=== PATIENT | male | born 1975 | race Caucasian/White ===

== ENCOUNTER → 2018-05-12 13:51 | Outpatient (CLI) | payer OTHER, SELFPAY ==
[2018-05-12 14:54] LABS: Hemoglobin A1C% w Est Avg Glu 9.1 % (4.0-6.0)
== END ==
PROVIDERS: PCP Family Medicine; Visit Provider Family Medicine
DX: E11.9 Type 2 diabetes mellitus without complications (principal)
CPT/HCPCS: 36415; 83036

== ENCOUNTER → 2018-05-19 08:29 | Outpatient (CLI) | payer OTHER, SELFPAY ==
--- NOTE | 2018-05-19 08:33 | DI.ECHO.S_ITS ---
[facility] +---------+ : : [address] : [place] [address] : : : : [id number] : : : : Phone: [phone]+ Echocardiogram Report + + :Name: TEJAS CARTER Study Date: 05/19/2018 Height: 71 in : :[facility] Weight: 270 lb : : Gender: Male BSA: 2.4 m2 : :: 1975 Age: 42 yrs BP: 132/84 mmHg: :Reason For Study: Cardiomyopathy : :Ordering Physician: Eryn : :Jesús Performed By: Gina Yañez : :Referring: NATALIA HENAO A : + + Interpretation Summary The left ventricle is mild-moderately dilated. There has been no significant change since the previous study. Left ventricular systolic function is moderately reduced. The ejection fraction is estimated to be 30-35%. Compared to the prior exam, left ventricular function is borderline improved. There is moderate global hypokinesis of the left ventricle. LV diastolic function is somewhere along grade I-II. The right ventricle grossly appears normal in size with probable normal systolic function. There is a pacemaker lead in the right ventricle. Right ventricular systolic function has increased since previous exam. The right ventricular systolic pressure is estimated at 38 mmHg assuming a right atrial pressure of 8 mm Hg. Borderline left atrial enlargement. The right atrium is mildly dilated. There is mild mitral regurgitation. Compared to the prior echo study, there has been an increase in the severity of mitral regurgitation. There is no other significant valvular heart disease. The aortic root is normal size. Procedure: A two-dimensional transthoracic echocardiogram with color flow and Doppler was performed. The study quality was technically difficult. Comparison is made with the echocardiogram of 07-02-17. A contrast injection of Definity was performed to improve assessment of LV function. A total of 1.5 cc of contrast was given. The patient was in normal sinus rhythm during the exam. Left Ventricle: The left ventricle is mild-moderately dilated. There has been no significant change since the previous study. There is normal left ventricular wall thickness. Left ventricular systolic function is moderately reduced. The ejection fraction is estimated to be 30-35%. Compared to the prior exam, left ventricular function is borderline improved. There is moderate global hypokinesis of the left ventricle. LV diastolic function is somewhere along grade I-II. Right Ventricle: The right ventricle grossly appears normal in size with probable normal systolic function. There is a pacemaker lead in the right ventricle. Right ventricular systolic function has increased since previous exam. Atria: Borderline left atrial enlargement. The right atrium is mildly dilated. The interatrial septum is intact with no evidence for an atrial septal defect. Mitral Valve: The mitral valve is grossly normal. There is mild mitral regurgitation. Compared to the prior echo study, there has been an increase in the severity of mitral regurgitation. Aortic Valve: The aortic valve opens well. The aortic valve is trileaflet. No aortic regurgitation is present. Tricuspid Valve: The tricuspid valve is normal in structure and function. There is trace tricuspid regurgitation. The right ventricular systolic pressure is estimated at 38 mmHg assuming a right atrial pressure of 8 mm Hg. Pulmonic Valve: The pulmonic valve is not well visualized. There is no pulmonic valvular regurgitation. There is no other significant valvular heart disease. Great Vessels: The aortic root is normal size. The dimensions of the ascending aorta are normal. The IVC is dilated (diameter is greater than 2.1 cm) yet it collapses greater than 50% with a sniff. This suggests a right atrial pressure of 8 mm Hg. Pericardium/ Pleura There is no pericardial effusion. There is no pleural effusion. MMode/2D Measurements & Calculations LVIDd: 6.3 cm Ao root diam: 3.6 cm LVIDs: 5.4 cm Aortic Jxn: 3.1 cm FS: 15.4 % asc Aorta Diam: 3.2 cm IVSd: 0.98 cm Ao Arch Diam (Prox Trans): 3.0 cm LVPWd: 0.76 cm LV evans. diameter/BSA (cm/m^2): 2.6 LV sys. diameter/BSA (cm/m^2): 2.2 LA dimension: 4.2 cm RA long axis: 5.1 cm LA A2 area: 21.9 cm2 RA area: 22.6 cm2 LA A4 area: 22.1 cm2 RA vol: 84.6 ml LA length (vol): 5.3 cm RA : 35.3 ml/m2 LA vol: 77.0 ml IVC diam: 2.2 cm LA vol index: 32.2 ml/m2 RVDd major: 6.6 cm RVD1 (basal): 4.0 cm RVD2 (mid): 3.7 cm Doppler Measurements & Calculations Ao V2 max: 139.7 cm/sec MV E max dejon: 103.1 cm/sec Ao V2 mean: 101.9 cm/sec MV A max dejon: 101.6 cm/sec Ao max P.8 mmHg MV E/A: 1.0 Ao mean P.6 mmHg Med Peak E' Dejon: 5.5 cm/sec Ao V2 VTI: 28.8 cm E/E' med: 18.8 Lat Peak E' Dejon: 7.5 cm/sec E/E' lat: 13.8 E/e' average: 16.3 MV dec time: 0.21 sec MV P1/2t: 61.6 msec MR ERO: 0.08 cm2 TR max dejon: 275.4 cm/sec MV P1/2t max dejon: 103.3 cm/sec TR max P.3 mmHg MVA(P1/2t): 3.6 cm2 PA V2 max: 101.1 cm/sec PA V2 mean: 64.4 cm/sec PA mean P.0 mmHg PA Accel Time: 0.12 sec MR flow rate: 38.8 cm3/sec MR PISA radius: 0.40 cm Reading Physician:PM
== END ==
PROVIDERS: Family Provider Internal Medicine; PCP Family Medicine; Visit Provider Family Medicine
DX: I42.9 Cardiomyopathy, unspecified (principal); I34.0 Nonrheumatic mitral (valve) insufficiency; Z95.0 Presence of cardiac pacemaker
CPT/HCPCS: 93306; Q9957

== ENCOUNTER → 2018-12-31 11:08 | Outpatient (CLI) | payer OTHER, SELFPAY | PROVIDERS: Family Provider Internal Medicine; Visit Provider Physician Assistant | DX: R68.89 Other general symptoms and signs (principal) | CPT/HCPCS: 87400 ==

== ENCOUNTER → 2018-12-31 12:34 | Outpatient (CLI) | payer OTHER, SELFPAY ==
--- NOTE | 2018-12-31 12:35 | DI.RAD.S_ITS ---
PROCEDURE: XR CHEST 2V INDICATIONS: COUGH TECHNIQUE: 2 views of the chest were acquired. COMPARISON: [facility], , CHEST 1 VIEW, 07/20/2017, 22:18. FINDINGS: Surgical changes and devices: Left chest wall cardiac device position is unchanged. Lungs and pleura: Lungs are clear. No pleural effusions or pneumothorax. Mediastinum: Mediastinal contours are normal. Heart size is enlarged. Bones and chest wall: No suspicious bony abnormalities. Soft tissues appear unremarkable. IMPRESSION: Cardiomegaly. No acute pulmonary pathology. Dictated by: Brian Benoit M.D. on 12/31/2018 at 13:05 Approved by: Brian Benoit M.D. on 12/31/2018 at 13:06
== END ==
PROVIDERS: Family Provider Internal Medicine; Visit Provider Physician Assistant
DX: R05 Cough (principal); I51.7 Cardiomegaly; R68.89 Other general symptoms and signs
CPT/HCPCS: 71046; 87400

== ENCOUNTER → 2019-03-06 10:23 | Outpatient (CLI) | payer OTHER, SELFPAY ==
[2019-03-06 12:11] LABS: Add Manual Diff / Slide Review NO; Basophils Absolute Auto 0 /uL (0-100); Basophils Percent Auto 0.9 % (0-2); Eosinophils Absolute Auto 0 /uL (0-450); Eosinophils Percent Auto 0.8 % (2-4); Hematocrit 45.4 % (41-53); Hemoglobin 15.7 g/dL (13.5-17.5); Lymphocytes Absolute Auto 1600 /uL (1100-4500); Lymphocytes Percent Auto 29.2 % (25-40); Mean Corpuscular HGB Conc 34.5 % (30-36); Mean Corpuscular Hemoglobin 29.2 PG (26-34); Mean Corpuscular Volume 84.5 fL (80-100); Monocytes Absolute Auto 400 /uL (0-900); Monocytes Percent Auto 8.1 % (3-14); Neutrophils Absolute Auto 3300 /uL (1500-7000); Platelet Count 216 X10^3/uL (150-400); Red Blood Cell Count 5.37 X10^6/uL (4.5-5.9); Red Cell Distribution Width 14.3 % (11.6-14.8); White Blood Cell Count 5.5 X10^3/uL (4.5-11.0)
[2019-03-06 12:43] LABS: Digoxin < 0.4 ng/mL (0.8-2.0)
[2019-03-06 12:45] LABS: Alanine Aminotransferase 19 IU/L (21-72); Albumin 4.7 g/dL (3.5-5.0); Albumin Globulin Ratio 1.6 (1.0-2.8); Alkaline Phosphatase 102 U/L (38-126); Aspartate Aminotransferase 13 IU/L (17-59); Bilirubin Total 0.8 mg/dL (0.2-1.3); Blood Urea Nitrogen 14 mg/dL (9-20); Calcium 9.9 mg/dL (8.4-10.2); Carbon Dioxide 28 mmol/L (22-32); Chloride 97 mmol/L (98-107); Estimated Glomerular Filt Rate > 60.0 mL/min (>60); Glucose 232 mg/dL (70-100); HEMOLYSIS < 15 (0-50); Potassium 4.1 mmol/L (3.4-5.1); Sodium 138 mmol/L (137-145); Total Protein 7.7 g/dL (6.3-8.2)
== END ==
LOC: LAB 10:25
PROVIDERS: PCP Family Medicine; Visit Provider Internal Medicine
DX: I42.8 Other cardiomyopathies (principal)
CPT/HCPCS: 36415; 80053; 80162; 85025

== ENCOUNTER 2019-09-18 08:11 | Emergency (ER) | payer OTHER, SELFPAY ==
--- NOTE | 2019-09-18 08:19 | ED.SOB ---
HPI - SOB/Dyspnea General Chief Complaint: Shortness of Breath/Dyspnea Stated Complaint: Dizzy, SOB Time Seen by Provider: 09/18/19 08:19 Source: patient and EMS Limitations: no limitations History of Present Illness HPI Narrative: Patient is a 43-year-old male with history of bipolar, anxiety congestive heart failure diabetes hyperlipidemia presenting with 2 days worth double vision in increasing shortness of breath. His he says he recently just started taking his medication as he is supposed to he got blister packs but the double vision started 2 days ago he denies dizziness or passing out. No numbness tingling or weakness. He is having some shortness of breath which he says got worse this morning. He can't tell if it is is anxiety or itsother issues. He denies any chest pain. He denies any orthopnea no swelling in his legs. He can't tell if he is getting more short of breath with exertion or not. He really says he has had this double vision for at least the last 2-3 days he just deals with it he is able to sleepy does not feel like he is spinning nauseous. MD Complaint: shortness of breath Related Data Home Medications Medication Instructions Recorded Confirmed aspirin 81 mg PO QDAY #30 tab 08/20/16 08/19/19 Previous Rx's Medication Instructions Recorded allopurinol 100 mg tablet 100 mg PO Q DAY #90 tab 09/05/19 amantadine HCl 100 mg capsule 100 mg PO BID #180 cap 09/05/19 atorvastatin 40 mg tablet 40 mg PO DAILY #90 tab 09/05/19 buspirone 30 mg tablet 30 mg PO BID #180 tab 09/05/19 digoxin 125 mcg (0.125 mg) tablet 125 mcg PO DAILY #90 tab 09/05/19 glipizide 5 mg tablet 5 mg PO BID #180 tab 09/05/19 losartan 50 mg tablet 50 mg PO BID #180 tab 09/05/19 metformin 1,000 mg tablet 1,000 mg PO BIDCC #180 tab 09/05/19 potassium chloride 10 mEq 10 meq PO DAILY #90 tab 09/05/19 tablet,extended release torsemide 20 mg tablet 20 mg PO Q DAY #90 tab 09/05/19 divalproex 500 mg tablet,delayed 500 mg PO TID #270 tab 09/07/19 release metoprolol succinate 100 mg See Rx Instructions PO DAILY #270 09/07/19 tablet,extended release 24 hr tab Allergies Allergy/AdvReac Type Severity Reaction Status Date / Time paliperidone [From INVEGA] Allergy Severe LOSS OF Verified 08/19/19 09:39 SPEECH AND MOTOR CONTROL NSAIDS (Non-Steroidal AdvReac Unknown STATES Verified 08/19/19 09:39 Anti-Inflamma INTERACTS [NSAIDS (NON-STEROIDAL WITH HOME ANTI-INFLAMMA] MEDS Review of Systems Review of Systems ROS Unobtainable: All systems reviewed & are unremarkable except as noted in HPI and below Constitutional Constitutional: Denies chills, Denies fever(s), Denies lethargy and Denies weakness Eyes Eyes: Reports blurry vision, Reports diplopia, Denies irritation and Denies itchy eyes Cardiovascular Cardiovascular: Denies chest pain, Denies lightheadedness, Reports dyspnea and Denies orthopnea Respiratory Respiratory: Reports as per HPI and Reports dyspnea Gastrointestinal Gastrointestinal: Denies abdominal pain, Denies change in bowel habits, Denies diarrhea, Denies nausea and Denies vomiting Genitourinary Genitourinary: Denies hematuria, Denies flank pain, Denies urinary incontinence and Denies urinary urgency Musculoskeletal Musculoskeletal: Denies back pain, Denies muscle weakness, Denies numbness and Denies tingling Integumentary/Breasts Skin/Breast: Denies pruritus, Denies erythema, Denies rash and Denies wounds Neurologic Neurologic: Denies confusion, Denies numbness, Denies tingling and Denies weakness Psychiatric Psychiatric: Denies anxiety, Denies confusion, Denies depression, Denies homicidal ideation and Denies suicidal ideation Allergic/Immunologic Allergic/Immunologic: Denies itchy eyes Patient History Medical History Drug-induced cardiomyopathy (Chronic 2015) Obstructive sleep apnea hypopnea, severe (Chronic) Social History marital status: household members: spouse education level: college occupational status: disabled Smoking Status: Former smoker alcohol intake: never substance use type: does not use Exam Initial Vital Signs Initial Vital Signs: Vital Signs Temperature 97.4 F L 09/18/19 08:23 Pulse Rate 88 09/18/19 08:23 Respiratory Rate 18 09/18/19 08:23 Blood Pressure 117/100 H 09/18/19 08:23 Pulse Oximetry 93 09/18/19 08:23 GENERAL: Alert anxious male HEENT: Head atraumatic,EOMI, pupils reactive, face symmetric CARDIOVASCULAR: Regular rate and rhythm without murmurs, rubs or gallops. RESPIRATORY: Breath sounds equal bilaterally, no wheezes rales or rhonchi. ABDOMEN: Soft, nontender. Normoactive bowel sounds all 4 quadrants. No guarding or rebound. EXTREMITIES: Normal range of motion, no clubbing or edema. Neurovascularly intact NEUROLOGICAL: Alert and oriented x4.Normal gait and speech. Cranial nerves II through XII grossly intact. Good [id number], good [id number], strength equal bilaterally, no dysarthria or aphasia, sensation in tact to soft touch bilaterally, no visual changes, no facial droop SKIN: Warm, dry, no laceration, no petechiae, no rashes or lesions. Scores NIH Stroke Scale Level of Conciousness: Alert, keenly responsive Ask month/age: Answers both questions correctly. Open/close eyes, close hand: Performs both tasks correctly Best gaze horizontal: Normal Visual leung: No visual loss Facial palsy: Normal symetrical movement Left arm drift: No drift for full 10 sec Right arm drift: No drift for full 10 sec Left leg drift: No drift for full 10 sec Right leg drift: No drift for full 10 sec Limb ataxia: Absent Sensory on face/arms/legs: Normal, no sensory loss Best language: No aphasia, normal Dysarthria: Normal Extinction or inattention: No abnormality Total NIH Stroke scale score: 0 Course Orders Ordered: ED Orders 09/18/19 08:20 Consult to Respiratory Therapy Evaluate & Treat CT head/brain wo con Stat EKG-12 Lead Stat 09/18/19 08:21 XR chest 1V Stat 09/18/19 08:35 B Type Natriuretic Peptide Stat Complete Blood Count AUTO DIFF Stat Comprehensive Metabolic Panel Stat Digoxin Stat Troponin & CK Cardiac Panel Stat Discontinued Medications Furosemide (Lasix) 40 mg IV NOW ONE Stop: 09/18/19 08:52 Last Admin: 09/18/19 09:16 Dose: 40 mg Documented by: MARTÍNEZ Vital Signs Vital signs: Vital Signs - 8 hr 09/18/19 08:23 09/18/19 09:30 09/18/19 10:00 Temperature 97.4 F L Pulse Rate 88 75 81 Respiratory Rate 18 21 19 Blood Pressure 117/100 H Blood Pressure [Right Arm] 119/86 116/89 Pulse Oximetry 93 94 97 MDM - SOB/Dyspnea Lab Data Attestation: I reviewed the patient's lab results. Result diagrams: 09/18/19 08:35 09/18/19 08:35 Labs: Lab Results 09/18/19 09/18/19 09/18/19 Range/Units 08:35 08:35 08:35 WBC 8.2 (4.5-11.0) X10^3/uL RBC 4.67 (4.5-5.9) X10^6/uL Hgb 13.8 (13.5-17.5) g/dL Hct 39.6 L (41-53) % MCV 84.9 (80-100) fL MCH 29.6 (26-34) PG MCHC 34.9 (30-36) % RDW 15.1 H (11.6-14.8) % Plt Count 239 (150-400) X10^3/uL Neut % (Auto) 71.9 (50-75) % Lymph % (Auto) 20.0 L (25-40) % [place] % (Auto) 6.2 (3-14) % Eos % (Auto) 0.7 L (2-4) % Baso % (Auto) 1.2 (0-2) % Neut # (Auto) 5900 (4425-2795) /uL Lymph # (Auto) 1600 (2558-3703) /uL [place] # (Auto) 500 (0-900) /uL Eos # (Auto) 100 (0-450) /uL Baso # (Auto) 100 (0-100) /uL Sodium 138 (137-145) mmol/L Potassium 4.3 (3.4-5.1) mmol/L Chloride 102 (98-107) mmol/L Carbon Dioxide 22 (22-32) mmol/L BUN 26 H (9-20) mg/dL Creatinine 1.10 (0.66-1.25) mg/dL Estimated GFR > 60.0 (>60) mL/min BUN/Creatinine Ratio 23.6 H (6-22) Glucose 198 H (70-100) mg/dL Calcium 9.7 (8.4-10.2) mg/dL Total Bilirubin 0.6 (0.2-1.3) mg/dL AST 21 (17-59) IU/L ALT 19 (<50) IU/L Alkaline Phosphatase 101 (38-126) U/L Total Creatine Kinase 50 L (55-170) U/L CK-MB (CK-2) TNP CK-MB (CK-2) Rel Index TNP Troponin I < 0.012 (0.01-0.034) ng/mL B-Natriuretic Peptide 439 H (<100) Total Protein 7.2 (6.3-8.2) g/dL Albumin 4.1 (3.5-5.0) g/dL Globulin 3.1 (1.7-4.1) g/dL Albumin/Globulin Ratio 1.3 (1.0-2.8) Digoxin (0.8-2.0) ng/mL 09/18/19 Range/Units 08:35 WBC (4.5-11.0) X10^3/uL RBC (4.5-5.9) X10^6/uL Hgb (13.5-17.5) g/dL Hct (41-53) % MCV (80-100) fL MCH (26-34) PG MCHC (30-36) % RDW (11.6-14.8) % Plt Count (150-400) X10^3/uL Neut % (Auto) (50-75) % Lymph % (Auto) (25-40) % [place] % (Auto) (3-14) % Eos % (Auto) (2-4) % Baso % (Auto) (0-2) % Neut # (Auto) (6047-8839) /uL Lymph # (Auto) (1024-6883) /uL [place] # (Auto) (0-900) /uL Eos # (Auto) (0-450) /uL Baso # (Auto) (0-100) /uL Sodium (137-145) mmol/L Potassium (3.4-5.1) mmol/L Chloride (98-107) mmol/L Carbon Dioxide (22-32) mmol/L BUN (9-20) mg/dL Creatinine (0.66-1.25) mg/dL Estimated GFR (>60) mL/min BUN/Creatinine Ratio (6-22) Glucose (70-100) mg/dL Calcium (8.4-10.2) mg/dL Total Bilirubin (0.2-1.3) mg/dL AST (17-59) IU/L ALT (<50) IU/L Alkaline Phosphatase (38-126) U/L Total Creatine Kinase (55-170) U/L CK-MB (CK-2) CK-MB (CK-2) Rel Index Troponin I (0.01-0.034) ng/mL B-Natriuretic Peptide (<100) Total Protein (6.3-8.2) g/dL Albumin (3.5-5.0) g/dL Globulin (1.7-4.1) g/dL Albumin/Globulin Ratio (1.0-2.8) Digoxin < 0.4 L (0.8-2.0) ng/mL Urine Dip Bedside Urine Glucose 500 mg/dl Bedside Urine Bilirubin - Negative Bedside Urine Ketone - Negative Urine Specific [place] 1.010 Bedside Urine Occult Blood - Negative Bedside Urine pH 6 Bedside Urine Protein - Negative Bedside Urine Urobilinogen - Negative Bedside Urine Nitrite - Negative Bedside Urine Leukocytes - Negative Esterase Imaging Data Chest x-ray: Radiologist's impression: PROCEDURE: XR CHEST 1V INDICATIONS: sob TECHNIQUE: One view of the chest was acquired. COMPARISON: [facility], , XR CHEST 2V, 12/31/2018, 12:33. FINDINGS: Surgical changes and devices: Pacemaker Lungs and pleura: Acute pulmonary edema. No pleural effusions or pneumothorax. Mediastinum: Mediastinal contours appear normal. Unchanged cardiomegaly. Bones and chest wall: No suspicious bony lesions. Overlying soft tissues appear unremarkable. IMPRESSION: Acute congestive heart failure Dictated by: Vin Perez M.D. on 09/18/2019 at 8:41 CT scan - head: Radiologist's impression: PROCEDURE: CT HEAD/BRAIN WO CON INDICATIONS: blurry vision for a couple of weeks TECHNIQUE: Noncontrast 4.5 mm thick angled axial sections acquired from the foramen magnum to the vertex, with coronal and sagittal reformats. For radiation dose reduction, the following was used: automated exposure control, adjustment of mA and/or kV according to patient size. COMPARISON: None. FINDINGS: Image quality: Excellent. CSF spaces: Basal cisterns are patent. No extra-axial fluid collections. Ventricles are normal in size and shape. Brain: No midline shift. No intracranial masses or hemorrhage. Starr-white matter interface is normal. Skull and face: Calvarium and visualized facial bones are intact, without suspicious lesions. Sinuses: Visualized sinuses and mastoids are clear. IMPRESSION: Normal for age source of altered vision is not seen. Depending on clinical status followup by MR scanning may become necessary. Dictated by: Jose Antonio Riojas M.D. on 09/18/2019 at 8:54 ECG Data Attestation: I personally reviewed and interpreted this ECG as follows: Prior ECG tracings: available for review Interpretation: Normal sinus rhythm rate 80 p.r. interval 191 QRS [address] elevations depressions or T-wave inversions similar to MDM Narrative Medical decision making narrative: Patient urinated 2 or 3 times while in the emergency department after IV Lasix. He had an ambulation trial is his oxygen level % he felt okay. He would prefer not to stay in the hospital, and at this point does not need to. He is already taking to Ro some id says he has been taking it once a day for the past few days but does not feel like doing much. His at this point I recommend he increased the torsemide to twice a day for the next 3 days and return as needed. His blurry vision also began to improve while in the emergency department. Head CT negative and stroke symptoms also negative. Discharge Plan Departure Patient Disposition: Home Clinical Impression: CHF (congestive heart failure) Qualifiers: Heart failure type: unspecified Heart failure chronicity: acute on chronic Qualified Code(s): I50.9 - Heart failure, unspecified Discharge Date/Time: 09/18/19 10:32 Instructions: DI for Heart Failure Activity Restrictions/Additional Instructions: *You have been diagnosed with congestive heart failure *What to do: Increase activity as tolerated. *Continue to take medications as directed Increased to 0 some I had to twice a day once 1st thing in the morning and then 2nd dose in the afternoon for the next 3 days, then return to as needed *Follow up with your primary care provider in 2-3 days *Return to ER if you should have it increasing shortness of breath double vision, weakness, numbness, tingling or any new, worsening or concerning symptoms Prescriptions: No Action aspirin 81 MG tablet,delayed release (DR/EC) 81 mg PO QDAY Qty: 30 RF: 0 allopurinol 100 mg tablet 100 mg PO Q DAY Qty: 90 RF: 3 amantadine HCl 100 mg capsule 100 mg PO BID Qty: 180 RF: 1 atorvastatin 40 mg tablet 40 mg PO DAILY Qty: 90 RF: 3 buspirone 30 mg tablet 30 mg PO BID Qty: 180 RF: 3 digoxin 125 mcg (0.125 mg) tablet 125 mcg PO DAILY Qty: 90 RF: 1 glipizide 5 mg tablet 5 mg PO BID Qty: 180 RF: 1 losartan [Cozaar] 50 mg tablet 50 mg PO BID Qty: 180 RF: 3 metformin 1,000 mg tablet 1,000 mg PO BIDCC Qty: 180 RF: 1 potassium chloride 10 mEq tablet extended release 10 meq PO DAILY Qty: 90 RF: 1 torsemide 20 mg tablet 20 mg PO Q DAY Qty: 90 RF: 1 metoprolol succinate 100 mg tablet extended release 24 hr See Rx Instructions PO DAILY Qty: 270 RF: 1 divalproex 500 mg tablet,delayed release (DR/EC) 500 mg PO TID Qty: 270 RF: 1 Referrals: Edward Ortiz MD [Primary Care Provider] -
--- NOTE | 2019-09-18 08:21 | DI.RAD.S_ITS ---
PROCEDURE: XR CHEST 1V INDICATIONS: sob TECHNIQUE: One view of the chest was acquired. COMPARISON: [facility], CR, XR CHEST 2V, 12/31/2018, 12:33. FINDINGS: Surgical changes and devices: Pacemaker Lungs and pleura: Acute pulmonary edema. No pleural effusions or pneumothorax. Mediastinum: Mediastinal contours appear normal. Unchanged cardiomegaly. Bones and chest wall: No suspicious bony lesions. Overlying soft tissues appear unremarkable. IMPRESSION: Acute congestive heart failure Dictated by: Vin Perez M.D. on 09/18/2019 at 8:41 Approved by: Vin Perez M.D. on 09/18/2019 at 8:41
[2019-09-18 08:23] VITALS: BP 117/100; PULSE 88; RESP 18; TEMP 36.3; O2SAT 93; BMI 40.6
[2019-09-18 08:46] LABS: Add Manual Diff / Slide Review NO; Basophils Absolute Auto 100 /uL (0-100); Basophils Percent Auto 1.2 % (0-2); Eosinophils Absolute Auto 100 /uL (0-450); Eosinophils Percent Auto 0.7 % (2-4); Hematocrit 39.6 % (41-53); Hemoglobin 13.8 g/dL (13.5-17.5); Lymphocytes Absolute Auto 1600 /uL (1100-4500); Mean Corpuscular HGB Conc 34.9 % (30-36); Mean Corpuscular Hemoglobin 29.6 PG (26-34); Mean Corpuscular Volume 84.9 fL (80-100); Monocytes Absolute Auto 500 /uL (0-900); Monocytes Percent Auto 6.2 % (3-14); Neutrophils Absolute Auto 5900 /uL (1500-7000); Neutrophils Percent Auto 71.9 % (50-75); Platelet Count 239 X10^3/uL (150-400); Red Blood Cell Count 4.67 X10^6/uL (4.5-5.9); Red Cell Distribution Width 15.1 % (11.6-14.8); White Blood Cell Count 8.2 X10^3/uL (4.5-11.0)
[2019-09-18 08:55] LABS: Creatine Kinase 50 U/L (55-170)
[2019-09-18 09:08] LABS: Troponin I < 0.012 ng/mL (0.01-0.034)
[2019-09-18 09:09] LABS: B Type Natriuretic Peptide 439 (<100)
[2019-09-18] MEDS: FUROSEMIDE 40 MG/4 ML VIAL IV (09:16)
[2019-09-18 09:17] LABS: Alanine Aminotransferase 19 IU/L (<50); Albumin 4.1 g/dL (3.5-5.0); Albumin Globulin Ratio 1.3 (1.0-2.8); Alkaline Phosphatase 101 U/L (38-126); Aspartate Aminotransferase 21 IU/L (17-59); BUN Creatinine Ratio 23.6 (6-22); Bilirubin Total 0.6 mg/dL (0.2-1.3); Blood Urea Nitrogen 26 mg/dL (9-20); Calcium 9.7 mg/dL (8.4-10.2); Carbon Dioxide 22 mmol/L (22-32); Chloride 102 mmol/L (98-107); Estimated Glomerular Filt Rate > 60.0 mL/min (>60); Globulin 3.1 g/dL (1.7-4.1); Glucose 198 mg/dL (70-100); HEMOLYSIS < 15 (0-50); Potassium 4.3 mmol/L (3.4-5.1); Sodium 138 mmol/L (137-145); Total Protein 7.2 g/dL (6.3-8.2)
[2019-09-18 09:22] LABS: Digoxin < 0.4 ng/mL (0.8-2.0)
[2019-09-18 09:30] VITALS: BP 119/86; PULSE 75; RESP 21; O2SAT 94
[2019-09-18 10:00] VITALS: BP 116/89; PULSE 81; RESP 19; O2SAT 97
--- NOTE | 2019-09-18 10:10 | PC.NURSE ---
Pt SPO2 97% during ambulation test.
== END 2019-09-18 10:32 | disposition home or self-care (01) ==
PROVIDERS: Emergency Provider Emergency Medicine; PCP Student in an Organized Health Care Education/Training Program
DX: I50.9 Heart failure, unspecified (principal); E11.69 Type 2 diabetes mellitus with other specified complication
CPT/HCPCS: 36415; 70450; 71045; 80053; 80162; 81003; 82550; 83880; 84484; 85025; 93005; 96374; 99282; 99285; J1940

== ENCOUNTER → 2019-10-16 07:43 | Outpatient (CLI) | payer OTHER, SELFPAY ==
[2019-10-16 09:42] LABS: Hemoglobin A1C% w Est Avg Glu 7.4 % (4.0-6.0)
[2019-10-16 10:00] LABS: Alanine Aminotransferase 24 IU/L (<50); Albumin 4.5 g/dL (3.5-5.0); Albumin Globulin Ratio 1.7 (1.0-2.8); Alkaline Phosphatase 95 U/L (38-126); Aspartate Aminotransferase 17 IU/L (17-59); Bilirubin Total 0.3 mg/dL (0.2-1.3); Blood Urea Nitrogen 16 mg/dL (9-20); Calcium 9.2 mg/dL (8.4-10.2); Carbon Dioxide 27 mmol/L (22-32); Chloride 97 mmol/L (98-107); Estimated Glomerular Filt Rate > 60.0 mL/min (>60); Globulin 2.7 g/dL (1.7-4.1); Glucose 200 mg/dL (70-100); HEMOLYSIS < 15 (0-50); Potassium 4.3 mmol/L (3.4-5.1); Sodium 136 mmol/L (137-145); Total Protein 7.2 g/dL (6.3-8.2)
[2019-10-16 10:03] LABS: Cholesterol 183 mg/dL (140-199); HDL Cholesterol 38 mg/dL (40-60); LDL Cholesterol Calculated 103 mg/dL (<100); Triglycerides 212 mg/dL (35-150); Uric Acid 6.9 mg/dL (3.5-8.5)
[2019-10-16 10:04] LABS: Creatinine Urine Random 106.1 mg/dL; Digoxin 0.7 ng/mL (0.8-2.0)
[2019-10-16 10:17] LABS: Vitamin D 25 Hydroxy (D3) 24.5 ng/mL (30.0-100.0)
[2019-10-16 11:21] LABS: Microalbumi Creatinin Ratio Ur 196.9 ug/mg CR (<30); Microalbumin Urine Random 20.9 mg/dL (0-1.6)
== END ==
PROVIDERS: PCP Student in an Organized Health Care Education/Training Program; Visit Provider Internal Medicine
DX: I50.41 Acute combined systolic (congestive) and diastolic (congestive) heart failure (principal); E11.69 Type 2 diabetes mellitus with other specified complication; E11.9 Type 2 diabetes mellitus without complications; E78.5 Hyperlipidemia, unspecified; I10 Essential (primary) hypertension; Z79.899 Other long term (current) drug therapy; Z87.39 Personal history of other diseases of the musculoskeletal system and connective tissue; E55.9 Vitamin D deficiency, unspecified
CPT/HCPCS: 36415; 80053; 80061; 80162; 82043; 82306; 82570; 83036; 84550

== ENCOUNTER 2020-01-06 20:04 | Inpatient (IN) | payer OTHER, SELFPAY ==
[2020-01-06 20:24] VITALS: BP 111/81; PULSE 114; RESP 18; TEMP 39.1; O2SAT 97; BMI 38.2
--- NOTE | 2020-01-06 20:33 | DI.RAD.S_ITS ---
PROCEDURE: XR CHEST 2V INDICATIONS: coughing, fever TECHNIQUE: 2 views of the chest were acquired. COMPARISON: [facility], , XR CHEST 1V, 09/18/2019, 8:24. FINDINGS: Surgical changes and devices: Left chest wall cardiac device position is unchanged. Lungs and pleura: Congestive changes in bilateral hilar region are seen. Underlying perihilar infiltrates cannot be excluded. No pleural effusions or pneumothorax. Mediastinum: Mediastinal contours are normal. Heart size is enlarged. Bones and chest wall: No suspicious bony abnormalities. Soft tissues appear unremarkable. IMPRESSION: Cardiomegaly and mild congestion. Cannot rule out underlying perihilar infiltrates particularly in left upper lobe and right lower lobe. Dictated by: Brian Benoit M.D. on 01/06/2020 at 21:20 Approved by: Brian Benoit M.D. on 01/06/2020 at 21:23
--- NOTE | 2020-01-06 20:44 | ED.SOB ---
HPI - SOB/Dyspnea General Chief Complaint: Shortness of Breath/Dyspnea Stated Complaint: cough, difficulty breathing Time Seen by Provider: 01/06/20 20:32 Source: patient and family () Mode of arrival: Ambulatory Limitations: no limitations History of Present Illness HPI Narrative: This is a 44-year-old male who comes to the emergency department with cough and difficulty breathing. Patient had symptoms for the last 24 hours. He developed fevers in the last several hours. Patient states that he does feel short of breath, he has chest pain anteriorly without any radiation. Patient states that he has had a cough that is been somewhat productive with yellowish sputum. He has had some nasal congestion. He has also had a little bit of a headache. He has had nausea. He has had normal bowel movements with no diarrhea or constipation, he is not having any abdominal pain or flank pain. He has not any rashes or skin changes. He has not had any swelling in his extremities. Patient has cardiomyopathy that is believed to be hereditary and accelerated by Adderall use. His EF is in the 15-30% range. He is not a transplant candidate according to his . Patient is bipolar and is moderately controlled according to his but they are unable to change medications because of his cardiac history. He also has diabetes, takes medication for dyslipidemia and hypertension as well as digoxin. Patient does have an ICD in place. His bitumastic applier is Dr. Espinosa. His only other surgery has been a urethral dilation. No tobacco he was a former smoker, no alcohol, he does use THC daily under the guidance of his psychiatrist. Related Data Home Medications Medication Instructions Recorded Confirmed aspirin 81 mg PO QDAY #30 tab 08/20/16 08/19/19 atorvastatin 80 mg tablet 80 mg PO DAILY 10/28/19 Previous Rx's Medication Instructions Recorded allopurinol 100 mg tablet 100 mg PO Q DAY #90 tab 09/05/19 amantadine HCl 100 mg capsule 100 mg PO BID #180 cap 09/05/19 buspirone 30 mg tablet 30 mg PO BID #180 tab 09/05/19 digoxin 125 mcg (0.125 mg) tablet 125 mcg PO DAILY #90 tab 09/05/19 losartan 50 mg tablet 50 mg PO BID #180 tab 09/05/19 metformin 1,000 mg tablet 1,000 mg PO BIDCC #180 tab 09/05/19 potassium chloride 10 mEq 10 meq PO DAILY #90 tab 09/05/19 tablet,extended release torsemide 20 mg tablet 20 mg PO Q DAY #90 tab 09/05/19 divalproex 500 mg tablet,delayed 500 mg PO TID #270 tab 09/07/19 release metoprolol succinate 100 mg See Rx Instructions PO DAILY #270 09/07/19 tablet,extended release 24 hr tab glipizide 10 mg tablet 10 mg PO BID #180 tab 10/18/19 magnesium chloride 64 mg 64 mg PO DAILY #90 tab 11/24/19 (magnesium chloride) tablet,delayed release Allergies Allergy/AdvReac Type Severity Reaction Status Date / Time paliperidone [From INVEGA] Allergy Severe LOSS OF Verified 08/19/19 09:39 SPEECH AND MOTOR CONTROL NSAIDS (Non-Steroidal AdvReac Unknown STATES Verified 08/19/19 09:39 Anti-Inflamma INTERACTS [NSAIDS (NON-STEROIDAL WITH HOME ANTI-INFLAMMA] MEDS Review of Systems Review of Systems ROS Unobtainable: All systems reviewed & are unremarkable except as noted in HPI and below Patient History Medical History Drug-induced cardiomyopathy (Chronic 2016) Obstructive sleep apnea hypopnea, severe (Chronic) Social History marital status: household members: spouse education level: college occupational status: disabled Smoking Status: Former smoker alcohol intake: never substance use type: does not use Smoking Status: Former smoker alcohol intake frequency: 0-2 drinks per day Substance Use Type: does not use Exam Narrative Exam Narrative: GEN: Obese male, alert and oriented x 3, patient appears to be in moderate distress. HEENT: Atraumatic, pupils are equal round reactive to light, extraocular movements are intact. HEART: Tachycardic but Regular rate and rhythm without murmur, clicks, rubs. Pulses are equal in upper and lower extremities, no edema bilateral lower extremities. LUNGS:Lungs course bilaterally auscultation, no wheezes, rales, crackles, chest moves symmetrically, mild tachypnea. No accessory muscle use. Patient has a wet cough on exam. ABD:bowel sounds normal, soft, non-tender, no guarding, rebound, rigidity, no masses noted, no hepatosplenomegaly :No CVA tenderness MSCL: Non-tender, no muscle atrophy, muscles strength 5/5 upper and lower extremities, full range of motion. NEURO:CN 2-12 intact, sensation normal Initial Vital Signs Initial Vital Signs: Vital Signs Temperature 102.4 F H 01/06/20 20:24 Pulse Rate 114 H 01/06/20 20:24 Respiratory Rate 18 01/06/20 20:24 Blood Pressure 111/81 01/06/20 20:24 Pulse Oximetry 97 01/06/20 20:24 Scores qSOFA Altered Mental Status (GCS <15): No Respiratory rate greater than/equal to 22: No Systolic blood pressure less than or equal to 100: No qSOFA Total: 0 0-1 Not High Risk 1-3 High risk Course Orders Ordered: ED Orders 01/06/20 20:23 Respiratory Panel (Film Array) Stat 01/06/20 20:32 EKG-12 Lead Stat RT Consult Eval and Treat Now 01/06/20 20:33 Chest [XR chest 2V] Stat 01/06/20 20:50 Complete Blood Count AUTO DIFF Stat Comprehensive Metabolic Panel Stat Digoxin Stat Lactate (Lactic Acid) Stat Lipase Stat NT-proBNP (BNP-Adult 18+) Stat Partial Thromboplastin Time Stat Procalcitonin Stat Prothrombin Time INR Stat Troponin & CK Cardiac Panel Stat 01/06/20 21:25 Blood Culture Stat 01/06/20 23:30 CT chest w con Stat Discontinued Medications Acetaminophen (Tylenol) 975 mg PO NOW ONE Stop: 01/06/20 20:46 Last Admin: 01/06/20 21:42 Dose: 975 mg Documented by: NIRMAL Albuterol (Ventolin Hfa) 4 puff INH NOW ONE Stop: 01/06/20 21:29 Last Admin: 01/06/20 21:44 Dose: 4 inhalation Documented by: NIRMAL Sodium Chloride (Normal Saline 0.9%) 1,000 mls @ 500 mls/hr IV BOLUS ONE Stop: 01/06/20 22:59 Last Admin: 01/06/20 21:43 Dose: 500 mls/hr Documented by: NIRMAL Piperacillin/Tazobactam/Dextrose (Zosyn) 4.5 gm in 100 mls @ 200 mls/hr IV NOW ONE Stop: 01/06/20 22:14 Last Infusion: 01/06/20 22:55 Dose: 0 mls/hr Documented by: Admin: 01/06/20 22:25 Dose: 200 mls/hr Documented by: DENNIS Vital Signs Vital signs: Vital Signs - 8 hr 01/06/20 20:24 01/06/20 21:42 01/06/20 22:33 Temperature 102.4 F H 102.4 F H 99.8 F H Pulse Rate 114 H 98 H Respiratory Rate 18 24 Blood Pressure 111/81 Blood Pressure [Right Arm] 126/69 Pulse Oximetry 97 95 01/06/20 22:45 01/06/20 23:00 Temperature 99.8 F H Pulse Rate 84 Respiratory Rate 16 Blood Pressure Blood Pressure [Right Arm] 125/57 L Pulse Oximetry 98 MDM - SOB/Dyspnea Lab Data Attestation: I reviewed the patient's lab results. Result diagrams: 01/06/20 20:50 01/06/20 20:50 Labs: Lab Results 01/06/20 01/06/20 01/06/20 Range/Units 20:23 20:50 20:50 WBC 5.1 (4.5-11.0) X10^3/uL RBC 5.25 (4.5-5.9) X10^6/uL Hgb 15.0 (13.5-17.5) g/dL Hct 44.0 (41-53) % MCV 83.8 (80-100) fL MCH 28.6 (26-34) PG MCHC 34.1 (30-36) % RDW 15.1 H (11.6-14.8) % Plt Count 147 L (150-400) X10^3/uL Neut % (Auto) 74.3 (50-75) % Lymph % (Auto) 12.9 L (25-40) % [place] % (Auto) 10.8 (3-14) % Eos % (Auto) 0.8 L (2-4) % Baso % (Auto) 1.2 (0-2) % Neut # (Auto) 3800 (5728-5595) /uL Lymph # (Auto) 700 L (5545-5261) /uL [place] # (Auto) 500 (0-900) /uL Eos # (Auto) 0 (0-450) /uL Baso # (Auto) 100 (0-100) /uL PT 12.8 H (10.1-12.7) SECONDS INR 1.1 (0.9-1.3) APTT 30 (26.4-36.2) SECONDS Sodium (137-145) mmol/L Potassium (3.4-5.1) mmol/L Chloride (98-107) mmol/L Carbon Dioxide (22-32) mmol/L BUN (9-20) mg/dL Creatinine (0.66-1.25) mg/dL Estimated GFR (>60) mL/min BUN/Creatinine Ratio (6-22) Glucose (70-100) mg/dL Lactate (0.7-2.1) mmol/L Calcium (8.4-10.2) mg/dL Total Bilirubin (0.2-1.3) mg/dL AST (17-59) IU/L ALT (<50) IU/L Alkaline Phosphatase (38-126) U/L Total Creatine Kinase (55-170) U/L CK-MB (CK-2) CK-MB (CK-2) Rel Index Troponin I (0.01-0.034) ng/mL NT-Pro-B Natriuret Pep (<125) pg/mL Total Protein (6.3-8.2) g/dL Albumin (3.5-5.0) g/dL Globulin (1.7-4.1) g/dL Albumin/Globulin Ratio (1.0-2.8) Lipase (23-300) U/L Procalcitonin (<0.5) ng/mL Digoxin (0.8-2.0) ng/mL Chlamy pneumoniae PCR Not detected (Not Detect) Adenovirus (PCR) Not detected (Not Detect) B.parapertussis DNA PCR Not detected (Not Detect) Coronavirus OC43 (PCR) Not detected (Not Detect) Coronavirus HKU1 (PCR) Not detected (Not Detect) Coronavirus 229E (PCR) Not detected (Not Detect) Coronavirus NL63 (PCR) Not detected (Not Detect) Human Metapneumovir PCR Detected H (Not Detect) Influenza Type A (PCR) Not detected (Not Detect) Influenza Type B (PCR) Not detected (Not Detect) M. pneumoniae (PCR) Not detected (Not Detect) Parainfluenza 1 (PCR) Not detected (Not Detect) Parainfluenza 2 (PCR) Not detected (Not Detect) Parainfluenza 3 (PCR) Not detected (Not Detect) Parainfluenza 4 (PCR) Not detected (Not Detect) RSV (PCR) Not detected (Not Detect) Entero/Rhino (PCR) Not detected (Not Detect) 01/06/20 01/06/20 01/06/20 Range/Units 20:50 20:50 20:50 WBC (4.5-11.0) X10^3/uL RBC (4.5-5.9) X10^6/uL Hgb (13.5-17.5) g/dL Hct (41-53) % MCV (80-100) fL MCH (26-34) PG MCHC (30-36) % RDW (11.6-14.8) % Plt Count (150-400) X10^3/uL Neut % (Auto) (50-75) % Lymph % (Auto) (25-40) % [place] % (Auto) (3-14) % Eos % (Auto) (2-4) % Baso % (Auto) (0-2) % Neut # (Auto) (2981-4865) /uL Lymph # (Auto) (7457-7689) /uL [place] # (Auto) (0-900) /uL Eos # (Auto) (0-450) /uL Baso # (Auto) (0-100) /uL PT (10.1-12.7) SECONDS INR (0.9-1.3) APTT (26.4-36.2) SECONDS Sodium 134 L (137-145) mmol/L Potassium 3.5 (3.4-5.1) mmol/L Chloride 98 (98-107) mmol/L Carbon Dioxide 30 (22-32) mmol/L BUN 10 (9-20) mg/dL Creatinine 0.86 (0.66-1.25) mg/dL Estimated GFR > 60.0 (>60) mL/min BUN/Creatinine Ratio 11.6 (6-22) Glucose 182 H (70-100) mg/dL Lactate 1.4 (0.7-2.1) mmol/L Calcium 8.8 (8.4-10.2) mg/dL Total Bilirubin 0.8 (0.2-1.3) mg/dL AST 21 (17-59) IU/L ALT 12 (<50) IU/L Alkaline Phosphatase 127 H (38-126) U/L Total Creatine Kinase (55-170) U/L CK-MB (CK-2) CK-MB (CK-2) Rel Index Troponin I (0.01-0.034) ng/mL NT-Pro-B Natriuret Pep (<125) pg/mL Total Protein 7.6 (6.3-8.2) g/dL Albumin 4.1 (3.5-5.0) g/dL Globulin 3.5 (1.7-4.1) g/dL Albumin/Globulin Ratio 1.2 (1.0-2.8) Lipase 109 (23-300) U/L Procalcitonin < 0.05 (<0.5) ng/mL Digoxin (0.8-2.0) ng/mL Chlamy pneumoniae PCR (Not Detect) Adenovirus (PCR) (Not Detect) B.parapertussis DNA PCR (Not Detect) Coronavirus OC43 (PCR) (Not Detect) Coronavirus HKU1 (PCR) (Not Detect) Coronavirus 229E (PCR) (Not Detect) Coronavirus NL63 (PCR) (Not Detect) Human Metapneumovir PCR (Not Detect) Influenza Type A (PCR) (Not Detect) Influenza Type B (PCR) (Not Detect) M. pneumoniae (PCR) (Not Detect) Parainfluenza 1 (PCR) (Not Detect) Parainfluenza 2 (PCR) (Not Detect) Parainfluenza 3 (PCR) (Not Detect) Parainfluenza 4 (PCR) (Not Detect) RSV (PCR) (Not Detect) Entero/Rhino (PCR) (Not Detect) 01/06/20 01/06/20 Range/Units 20:50 20:50 WBC (4.5-11.0) X10^3/uL RBC (4.5-5.9) X10^6/uL Hgb (13.5-17.5) g/dL Hct (41-53) % MCV (80-100) fL MCH (26-34) PG MCHC (30-36) % RDW (11.6-14.8) % Plt Count (150-400) X10^3/uL Neut % (Auto) (50-75) % Lymph % (Auto) (25-40) % [place] % (Auto) (3-14) % Eos % (Auto) (2-4) % Baso % (Auto) (0-2) % Neut # (Auto) (2698-0589) /uL Lymph # (Auto) (3066-4733) /uL [place] # (Auto) (0-900) /uL Eos # (Auto) (0-450) /uL Baso # (Auto) (0-100) /uL PT (10.1-12.7) SECONDS INR (0.9-1.3) APTT (26.4-36.2) SECONDS Sodium (137-145) mmol/L Potassium (3.4-5.1) mmol/L Chloride (98-107) mmol/L Carbon Dioxide (22-32) mmol/L BUN (9-20) mg/dL Creatinine (0.66-1.25) mg/dL Estimated GFR (>60) mL/min BUN/Creatinine Ratio (6-22) Glucose (70-100) mg/dL Lactate (0.7-2.1) mmol/L Calcium (8.4-10.2) mg/dL Total Bilirubin (0.2-1.3) mg/dL AST (17-59) IU/L ALT (<50) IU/L Alkaline Phosphatase (38-126) U/L Total Creatine Kinase 90 (55-170) U/L CK-MB (CK-2) TNP CK-MB (CK-2) Rel Index TNP Troponin I < 0.012 (0.01-0.034) ng/mL NT-Pro-B Natriuret Pep 2180 H (<125) pg/mL Total Protein (6.3-8.2) g/dL Albumin (3.5-5.0) g/dL Globulin (1.7-4.1) g/dL Albumin/Globulin Ratio (1.0-2.8) Lipase (23-300) U/L Procalcitonin (<0.5) ng/mL Digoxin < 0.4 L (0.8-2.0) ng/mL Chlamy pneumoniae PCR (Not Detect) Adenovirus (PCR) (Not Detect) B.parapertussis DNA PCR (Not Detect) Coronavirus OC43 (PCR) (Not Detect) Coronavirus HKU1 (PCR) (Not Detect) Coronavirus 229E (PCR) (Not Detect) Coronavirus NL63 (PCR) (Not Detect) Human Metapneumovir PCR (Not Detect) Influenza Type A (PCR) (Not Detect) Influenza Type B (PCR) (Not Detect) M. pneumoniae (PCR) (Not Detect) Parainfluenza 1 (PCR) (Not Detect) Parainfluenza 2 (PCR) (Not Detect) Parainfluenza 3 (PCR) (Not Detect) Parainfluenza 4 (PCR) (Not Detect) RSV (PCR) (Not Detect) Entero/Rhino (PCR) (Not Detect) Imaging Data Chest x-ray: Radiologist's Impression: [address] [address] XRay Report Signed Patient: Himanshu Nguyễn AMR#: [id number] : 1975Acct:[id number] Age/Sex: 44 / MDate of Service: 01/06/20 Loc: ED Accession Number: [id number] Procedure: XR chest 2V Ordering Provider: Aury Merida D.O. PROCEDURE: XR CHEST 2V INDICATIONS: coughing, fever TECHNIQUE: 2 views of the chest were acquired. [facility]. FINDINGS: Surgical changes and devices: Left chest wall cardiac device position is unchanged. Lungs and pleura: Congestive changes in bilateral hilar region are seen. Underlying perihilar infiltrates cannot be excluded. No pleural effusions or pneumothorax. Mediastinum: Mediastinal contours are normal. Heart size is enlarged. Bones and chest wall: No suspicious bony abnormalities. Soft tissues appear unremarkable. IMPRESSION: Cardiomegaly and mild congestion. Cannot rule out underlying perihilar infiltrates particularly in left upper lobe and right lower lobe. Dictated by: Brian Benoit M.D. on 01/06/2020 at 21:20 Approved by: Brian Benoit M.D. on 01/06/2020 at 21:23 CT scan - abdomen/pelvis: Radiologist's Impression: Multiple nodular infiltrates are identified in the lingula left lower lobe. Small area of scarring in the right apex. No segmental airspace opacity. No pleural effusion or pneumothorax. Borderline mild cardiomegaly, no significant pericardial effusion. Multiple subcentimeter and borderline enlarged mediastinal and bilateral hilar lymph nodes. ECG Data Attestation: I personally reviewed and interpreted this ECG as follows: Prior ECG tracings: available for review Interpretation: Normal sinus rhythm rate of 98 [place] 140 QRS of 108 QTC of 449. Left axis deviation. No ST elevation or depression. Patient has prior EKG from 09/18/2019 that appears similar. MDM Narrative Medical decision making narrative: Patient comes in needing septic criteria with a temperature of 102.4? in tachycardia in the 114 range. Patient is 97% with pressure in the 110s to 120s. Patient was given 500 cc fluid bolus and his heart rate did improve, his fever improved with Tylenol. He is feeling somewhat better but still feels ill. Has a significant history for cardiomyopathy with a decreased EF an ICD in place and follows with Dr. Espinosa. Patient appears to have pneumonia on chest x-ray. He has had cough and chest pain and shortness of breath consistent with a pneumonia. Show an elevated white count, platelets are 147 and he has low lymphocytes with normal range neutrophils. Sodium is 134, renal function electrolytes are normal range. Patient's troponin was included as he does have a significant cardiac history and is negative been a proBNP of 2180. Patient has prior BNPs but no prior proBNP for comparison. Patient's digoxin level was checked and is low. Was include is positive for human metapneumovirus, patient is quite high risk and castillo virus 19 testing was included but will be pending for the next several days. Patient is improving but based on his history and meeting septic criteria was felt would be prudent to observe him overnight. Discussed with Dr. Soto from cardiology he does not feel patient requires transfer at this time but would recommend an echo in the morning to check his EF and cardiovascular status. Plan for gentle fluids in order not to over hydrate this patient. Discussed with our hospitalist, PRASANNA Villanueva and she accepts but would like to get CT to evaluate, this shows some lingular and left lower lobe nodular infiltrate and adenopathy. We did have patient take his home medications he did initially receive 1 dose of IV antibiotics and 4 puffs on the MDI which was helpful for his shortness of breath. Discharge Plan Departure Patient Disposition: Admitted as Observation Clinical Impression: Sepsis, Pneumonia, Human metapneumovirus pneumonia Admit Date/Time: 01/07/20 00:33 Admit Provider: Giselle Villanueva
[2020-01-06 21:11] LABS: Add Manual Diff / Slide Review NO; Basophils Absolute Auto 100 /uL (0-100); Basophils Percent Auto 1.2 % (0-2); Eosinophils Absolute Auto 0 /uL (0-450); Eosinophils Percent Auto 0.8 % (2-4); Lymphocytes Absolute Auto 700 /uL (1100-4500); Lymphocytes Percent Auto 12.9 % (25-40); Mean Corpuscular HGB Conc 34.1 % (30-36); Mean Corpuscular Hemoglobin 28.6 PG (26-34); Mean Corpuscular Volume 83.8 fL (80-100); Monocytes Absolute Auto 500 /uL (0-900); Monocytes Percent Auto 10.8 % (3-14); Neutrophils Absolute Auto 3800 /uL (1500-7000); Neutrophils Percent Auto 74.3 % (50-75); Platelet Count 147 X10^3/uL (150-400); Red Blood Cell Count 5.25 X10^6/uL (4.5-5.9); Red Cell Distribution Width 15.1 % (11.6-14.8); White Blood Cell Count 5.1 X10^3/uL (4.5-11.0)
[2020-01-06 21:18] LABS: INR 1.1 (0.9-1.3); Prothrombin Time 12.8 SECONDS (10.1-12.7)
[2020-01-06 21:20] LABS: PTT Partial Thromboplastin Tim 30 SECONDS (26.4-36.2)
[2020-01-06 21:28] LABS: Creatine Kinase 90 U/L (55-170); Lactate (Lactic Acid) 1.4 mmol/L (0.7-2.1)
[2020-01-06 21:29] LABS: Alanine Aminotransferase 12 IU/L (<50); Albumin 4.1 g/dL (3.5-5.0); Albumin Globulin Ratio 1.2 (1.0-2.8); Alkaline Phosphatase 127 U/L (38-126); Aspartate Aminotransferase 21 IU/L (17-59); BUN Creatinine Ratio 11.6 (6-22); Bilirubin Total 0.8 mg/dL (0.2-1.3); Blood Urea Nitrogen 10 mg/dL (9-20); Calcium 8.8 mg/dL (8.4-10.2); Carbon Dioxide 30 mmol/L (22-32); Chloride 98 mmol/L (98-107); Estimated Glomerular Filt Rate > 60.0 mL/min (>60); Globulin 3.5 g/dL (1.7-4.1); Glucose 182 mg/dL (70-100); HEMOLYSIS < 15 (0-50); Lipase 109 U/L (23-300); Potassium 3.5 mmol/L (3.4-5.1); Sodium 134 mmol/L (137-145); Total Protein 7.6 g/dL (6.3-8.2)
[2020-01-06 21:40] LABS: NT-proBNP (BNP-Adult 18+) 2180 pg/mL (<125); Troponin I < 0.012 ng/mL (0.01-0.034)
[2020-01-06 21:42] VITALS: TEMP 39.1
[2020-01-06] MEDS: ACETAMINOPHEN 325 MG TABLET 975 MG PO (21:42)
[2020-01-06] MEDS: SODIUM CHLORIDE 0.9% 1,000 ML 500 ML IV (21:43)
[2020-01-06] MEDS: ALBUTEROL HFA 60 PUFF/8 GM INH INH (21:44)
[2020-01-06 21:51] LABS: Adenovirus Not Detected (Not Detect); Bordetella pertussis Not Detected (Not Detect); Chlamydophila pneumoniae Not Detected (Not Detect); Coronavirus 229E Not Detected (Not Detect); Coronavirus HKU1 Not Detected (Not Detect); Coronavirus NL 63 Not Detected (Not Detect); Coronavirus OC43 Not Detected (Not Detect); Human Metapneumovirus Detected (Not Detect); Human Rhinovirus/Enterovirus Not Detected (Not Detect); Influenza A Not Detected (Not Detect); Influenza B Not Detected (Not Detect); Mycoplasma pneumoniae Not Detected (Not Detect); Parainfluenza Virus 1 Not Detected (Not Detect); Parainfluenza Virus 2 Not Detected (Not Detect); Parainfluenza Virus 3 Not Detected (Not Detect); Parainfluenza Virus 4 Not Detected (Not Detect); Respiratory Syncytial Virus Not Detected (Not Detect)
[2020-01-06 22:14] LABS: Procalcitonin < 0.05 ng/mL (<0.5)
[2020-01-06] MEDS: PIPERACILLIN-TAZO 4.5 GM/100 ML FROZ.PIGGY IV (22:25)
[2020-01-06 22:28] LABS: Digoxin < 0.4 ng/mL (0.8-2.0)
[2020-01-06 22:33] VITALS: BP 126/69; PULSE 98; RESP 24; TEMP 37.7; O2SAT 95
[2020-01-06 22:45] VITALS: TEMP 37.7
[2020-01-06 23:00] VITALS: BP 125/57; PULSE 84; RESP 16; O2SAT 98
--- NOTE | 2020-01-06 23:30 | DI.CT.S_ITS ---
PROCEDURE: CT CHEST W CON INDICATIONS: pneumonia, covid TECHNIQUE: After the administration of intravenous contrast, 5 mm thick sections acquired from the pulmonary apices to the posterior costophrenic angles. 1 mm axial lung, 5 mm thick coronal and sagittal reformats and 7 mm axial MIP were acquired. For radiation dose reduction, the following was used: automated exposure control, adjustment of mA and/or kV according to patient size. COMPARISON: [facility], CR, XR CHEST 2V, 01/06/2020, 21:02. FINDINGS: Image quality: Excellent. Lungs and pleura: Nodular infiltrates bilaterally, most pronounced in the left lower lobe, lingula and right middle lobe, but also involve right upper and lower lobes, consistent with pneumonia. No pleural effusions or pneumothorax. Central and peripheral airways are patent and normal in caliber. Mediastinum: Heart size is normal. No pericardial effusion. Mildly enlarged mediastinal or hilar lymph nodes measuring up to 1 cm. Thoracic aorta and central pulmonary arteries are normal in size. Esophagus is normal in caliber. No hiatal hernia. Bones and chest wall: No suspicious bony lesions. No vertebral body compression fractures. No axillary or supraclavicular adenopathy by size criteria. Thyroid gland is normal. There is a cardiac pacemaker. Abdomen: Visualized upper abdominal solid organs appear normal. Upper abdominal bowel loops are normal in caliber. IMPRESSION: 1. Bilateral nodular infiltrates consistent with pneumonia. 2. Reactive lymphadenopathy in mediastinum or girish. No significant discrepancy with the concreter radiology preliminary report. Dictated by: Brit Wise M.D. on 01/07/2020 at 7:52 Approved by: Brit Wise M.D. on 01/07/2020 at 7:58
[2020-01-07] VITALS (8 sets, daily range): BP systolic 116–146; BP diastolic 59–84; PULSE 88–100; RESP 16–20; TEMP 36.6–38.2; O2SAT 95–98; BMI 38.2
--- NOTE | 2020-01-07 02:01 | PM.HP.1 ---
History of Present Illness History of Present Illness Date Patient Seen: 01/07/20 Time Patient Seen: 01:15 Chief complaint: cough, difficulty breathing Narrative: Himanshu Weiss is a 44-year-old male with a history of congestive heart failure and an ejection fraction he states in the 15% range, ADHD, bipolar anxiety, and diabetes type 2 presents with the 2 day history of fevers, shortness of breath and a cough. His symptoms started yesterday with shortness of breath however he states that he short of breath all the time. He then had fevers on admission to the ED of 102.4. He states that he has had scant sputum. It denies chest pain, nausea and vomiting, dysuria, diarrhea, constipation, course lower extremity swelling. Emergency department provider discussed his case with his ship/rec/doc control due to his cardiac condition. Patient states that he does not qualify for heart transplant due to his mental health issues. He states that he has been told he has 2 years to live and has lived 3 years since being told that prognosis. He states that taking Adderall contributed to his heart disease. Patient is quite tangential in his history, so it is difficult to obtain a clear history from him. Patient History Medical History Drug-induced cardiomyopathy (Chronic 2016) Obstructive sleep apnea hypopnea, severe (Chronic) Family & Social History Social History: household members spouse Safety & Behavioral: Feels Safe in Current Yes Environment Been Physically Hurt or No Threatened By a Person Tobacco & Substance use: Smoking Status Former smoker alcohol intake never alcohol intake frequency 0-2 drinks per day Substance Use Type does not use Meds Home Medications and Allergies Home Medications Medication Instructions Recorded Confirmed Type aspirin 81 mg PO QDAY #30 tab 08/20/16 08/19/19 History allopurinol 100 mg tablet 100 mg PO Q DAY #90 tab 09/05/19 09/18/19 Rx amantadine HCl 100 mg capsule 100 mg PO BID #180 cap 09/05/19 Rx buspirone 30 mg tablet 30 mg PO BID #180 tab 09/05/19 Rx digoxin 125 mcg (0.125 mg) tablet 125 mcg PO DAILY #90 tab 09/05/19 Rx losartan 50 mg tablet 50 mg PO BID #180 tab 09/05/19 09/18/19 Rx metformin 1,000 mg tablet 1,000 mg PO BIDCC #180 tab 09/05/19 09/18/19 Rx potassium chloride 10 mEq 10 meq PO DAILY #90 tab 09/05/19 Rx tablet,extended release torsemide 20 mg tablet 20 mg PO Q DAY #90 tab 09/05/19 Rx divalproex 500 mg tablet,delayed 500 mg PO TID #270 tab 09/07/19 Rx release metoprolol succinate 100 mg See Rx Instructions PO DAILY #270 09/07/19 Rx tablet,extended release 24 hr tab glipizide 10 mg tablet 10 mg PO BID #180 tab 10/18/19 Rx atorvastatin 80 mg tablet 80 mg PO DAILY 10/28/19 History magnesium chloride 64 mg 64 mg PO DAILY #90 tab 11/24/19 Rx (magnesium chloride) tablet,delayed release Allergies Allergy/AdvReac Type Severity Reaction Status Date / Time paliperidone [From INVEGA] Allergy Severe LOSS OF Verified 08/19/19 09:39 SPEECH AND MOTOR CONTROL NSAIDS (Non-Steroidal AdvReac Unknown STATES Verified 08/19/19 09:39 Anti-Inflamma INTERACTS [NSAIDS (NON-STEROIDAL WITH HOME ANTI-INFLAMMA] MEDS Review of Systems Review of Systems ROS: Yes All systems reviewed with the patient and are negative except as otherwise documented Exam Vital Signs (past 8 hours): - 01/06/20 20:24 01/06/20 21:42 01/06/20 22:33 Temperature 102.4 F H 102.4 F H 99.8 F H Pulse Rate 114 H 98 H Respiratory Rate 18 24 Blood Pressure 111/81 Blood Pressure [Right Arm] 126/69 Pulse Oximetry 97 95 01/06/20 22:45 01/06/20 23:00 Temperature 99.8 F H Pulse Rate 84 Respiratory Rate 16 Blood Pressure Blood Pressure [Right Arm] 125/57 L Pulse Oximetry 98 Oxygen Delivery Method Room Air Narrative Exam Narrative: Gen: Alert, oriented, obese 44 y.o. male, very anxious and labile HEENT: normocephalic, atraumatic, conjunctiva clear, sclera non-icteric, oral mucosa pink and moist Neck: supple, full ROM Resp: Lungs diminished with faint wheezes bilaterally, non-labored breathing CV: RRR, no murmur or rubs Abd: Obese, soft, non-tender, normoactive BTs Skin: no lesions or rashes, dry and intact, no swelling Neuro: Alert and oriented X 4 w/no focal deficits Extremities: moves all 4 extremities, is ambulatory, negative Dez?s sign Psyche: Anxious, tangential and labile. Objective Labs Result Diagrams: 01/06/20 20:50 01/06/20 20:50 Labs: Laboratory Results - last 24 hr 01/06/20 01/06/20 01/06/20 20:23 20:50 20:50 WBC 5.1 RBC 5.25 Hgb 15.0 Hct 44.0 MCV 83.8 MCH 28.6 MCHC 34.1 RDW 15.1 H Plt Count 147 L Neut % (Auto) 74.3 Lymph % (Auto) 12.9 L [place] % (Auto) 10.8 Eos % (Auto) 0.8 L Baso % (Auto) 1.2 Neut # (Auto) 3800 Lymph # (Auto) 700 L [place] # (Auto) 500 Eos # (Auto) 0 Baso # (Auto) 100 PT 12.8 H INR 1.1 APTT 30 Sodium Potassium Chloride Carbon Dioxide BUN Creatinine Estimated GFR BUN/Creatinine Ratio Glucose Lactate Calcium Total Bilirubin AST ALT Alkaline Phosphatase Total Creatine Kinase CK-MB (CK-2) CK-MB (CK-2) Rel Index Troponin I NT-Pro-B Natriuret Pep Total Protein Albumin Globulin Albumin/Globulin Ratio Lipase Procalcitonin Digoxin Chlamy pneumoniae PCR Not detected Adenovirus (PCR) Not detected B.parapertussis DNA PCR Not detected Coronavirus OC43 (PCR) Not detected Coronavirus HKU1 (PCR) Not detected Coronavirus 229E (PCR) Not detected Coronavirus NL63 (PCR) Not detected Human Metapneumovir PCR Detected H Influenza Type A (PCR) Not detected Influenza Type B (PCR) Not detected M. pneumoniae (PCR) Not detected Parainfluenza 1 (PCR) Not detected Parainfluenza 2 (PCR) Not detected Parainfluenza 3 (PCR) Not detected Parainfluenza 4 (PCR) Not detected RSV (PCR) Not detected Entero/Rhino (PCR) Not detected 01/06/20 01/06/20 01/06/20 20:50 20:50 20:50 WBC RBC Hgb Hct MCV MCH MCHC RDW Plt Count Neut % (Auto) Lymph % (Auto) [place] % (Auto) Eos % (Auto) Baso % (Auto) Neut # (Auto) Lymph # (Auto) [place] # (Auto) Eos # (Auto) Baso # (Auto) PT INR APTT Sodium 134 L Potassium 3.5 Chloride 98 Carbon Dioxide 30 BUN 10 Creatinine 0.86 Estimated GFR > 60.0 BUN/Creatinine Ratio 11.6 Glucose 182 H Lactate 1.4 Calcium 8.8 Total Bilirubin 0.8 AST 21 ALT 12 Alkaline Phosphatase 127 H Total Creatine Kinase CK-MB (CK-2) CK-MB (CK-2) Rel Index Troponin I NT-Pro-B Natriuret Pep Total Protein 7.6 Albumin 4.1 Globulin 3.5 Albumin/Globulin Ratio 1.2 Lipase 109 Procalcitonin < 0.05 Digoxin Chlamy pneumoniae PCR Adenovirus (PCR) B.parapertussis DNA PCR Coronavirus OC43 (PCR) Coronavirus HKU1 (PCR) Coronavirus 229E (PCR) Coronavirus NL63 (PCR) Human Metapneumovir PCR Influenza Type A (PCR) Influenza Type B (PCR) M. pneumoniae (PCR) Parainfluenza 1 (PCR) Parainfluenza 2 (PCR) Parainfluenza 3 (PCR) Parainfluenza 4 (PCR) RSV (PCR) Entero/Rhino (PCR) 01/06/20 01/06/20 20:50 20:50 WBC RBC Hgb Hct MCV MCH MCHC RDW Plt Count Neut % (Auto) Lymph % (Auto) [place] % (Auto) Eos % (Auto) Baso % (Auto) Neut # (Auto) Lymph # (Auto) [place] # (Auto) Eos # (Auto) Baso # (Auto) PT INR APTT Sodium Potassium Chloride Carbon Dioxide BUN Creatinine Estimated GFR BUN/Creatinine Ratio Glucose Lactate Calcium Total Bilirubin AST ALT Alkaline Phosphatase Total Creatine Kinase 90 CK-MB (CK-2) TNP CK-MB (CK-2) Rel Index TNP Troponin I < 0.012 NT-Pro-B Natriuret Pep 2180 H Total Protein Albumin Globulin Albumin/Globulin Ratio Lipase Procalcitonin Digoxin < 0.4 L Chlamy pneumoniae PCR Adenovirus (PCR) B.parapertussis DNA PCR Coronavirus OC43 (PCR) Coronavirus HKU1 (PCR) Coronavirus 229E (PCR) Coronavirus NL63 (PCR) Human Metapneumovir PCR Influenza Type A (PCR) Influenza Type B (PCR) M. pneumoniae (PCR) Parainfluenza 1 (PCR) Parainfluenza 2 (PCR) Parainfluenza 3 (PCR) Parainfluenza 4 (PCR) RSV (PCR) Entero/Rhino (PCR) Assessment & Plan Assessment & Plan narrative: Himanshu Nguyễn will be hospitalized as an inpatient on droplet precautions due to his cough and fever. 1. Presumed community-acquired pneumonia, acute, present on admission -he received 1 dose of Zosyn in the ED -will receive IV ceftriaxone 1 g daily and azithromycin 500 mg p.o. daily -emergency department sent out a test for COVID-19, patient will be on droplet precautions, there is a low suspicion for this due to being positive for metapneumovirus 2. Chronic left ventricular diastolic heart failure, chronic, present on admission -his proBNP is 2180 however it is not known what his baseline is. -last echocardiogram was done in 2017 indicating a EF of 30-35% -per Cardiology, they would like to have him have an echocardiogram during this admission, this has been ordered -continue home dose of metoprolol succinate 100 mg p.o. once daily and losartan 50 mg p.o. b.i.d. -his digital level is 0.4 which is low, assuming his not been taking digoxin. Will resume digoxin 125 mcg p.o. once daily -continue home dose of torsemide 20 mg p.o. daily 3. Diabetes type 2, chronic, unknown if controlled, present on admission -hemoglobin A1c will be added on to his labs. Last A1c in September 2019 was 7.4. -I have held his metformin and glipizide. -start regular dose insulin correctional scale with a.c. and HS glucose checks, carb controlled diet FEN: IV saline line, carb controlled diet, chemistries in the am Patient is admitted inpatient his stay is not likely to exceed 2 midnights. VTE Prophylaxis: Bilateral SCDs and enoxaparin 40 mg subcu daily Medications reconciled: Yes but not confirmed Disposition: Presumed eventual discharge to home Code Status: Full code 3. Hyperlipidemia, chronic, present on admission -continue home dose of atorvastatin 80 mg p.o. daily 4. Bipolar disorder, chronic not well controlled, present on admission -patient states that it is difficult to adjust any of his medications due to the interactions with his bipolar medications -patient will continue home doses of buspirone 30 mg p.o. b.i.d., divalproex 500 mg p.o. t.i.d. Scores CHADS-VASc Congestive heart failure: yes Hypertension: yes Age 75 years or older: no Diabetes mellitus: yes Stroke, TIA, or TE: no Vascular disease: no Age 65 to 74 years: no Sex category (female): Male CHADS-VASc Score: 3 Quality VTE Deep Vein Thrombosis/Pulmonary Embolism Present on Admission: No
[2020-01-07] MEDS: CEFTRIAXONE 1 GM/50 ML FROZ.PIGGY IV (02:44)
[2020-01-07 03:08] LABS: Hemoglobin A1C% w Est Avg Glu 8.3 % (4.0-6.0)
[2020-01-07 05:23] LABS: Add Manual Diff / Slide Review NO; Basophils Absolute Auto 0 /uL (0-100); Basophils Percent Auto 0.7 % (0-2); Eosinophils Absolute Auto 0 /uL (0-450); Eosinophils Percent Auto 0.6 % (2-4); Hematocrit 40.8 % (41-53); Hemoglobin 13.9 g/dL (13.5-17.5); Lymphocytes Absolute Auto 700 /uL (1100-4500); Lymphocytes Percent Auto 14.1 % (25-40); Mean Corpuscular HGB Conc 34.1 % (30-36); Mean Corpuscular Hemoglobin 28.5 PG (26-34); Mean Corpuscular Volume 83.6 fL (80-100); Monocytes Absolute Auto 700 /uL (0-900); Monocytes Percent Auto 14.2 % (3-14); Neutrophils Absolute Auto 3300 /uL (1500-7000); Neutrophils Percent Auto 70.4 % (50-75); Platelet Count 131 X10^3/uL (150-400); Red Blood Cell Count 4.88 X10^6/uL (4.5-5.9); White Blood Cell Count 4.7 X10^3/uL (4.5-11.0)
[2020-01-07 05:29] LABS: Alanine Aminotransferase 11 IU/L (<50); Albumin 3.7 g/dL (3.5-5.0); Albumin Globulin Ratio 1.1 (1.0-2.8); Alkaline Phosphatase 107 U/L (38-126); Aspartate Aminotransferase 17 IU/L (17-59); BUN Creatinine Ratio 9.8 (6-22); Bilirubin Total 0.8 mg/dL (0.2-1.3); Blood Urea Nitrogen 9 mg/dL (9-20); Calcium 8.3 mg/dL (8.4-10.2); Carbon Dioxide 30 mmol/L (22-32); Chloride 99 mmol/L (98-107); Estimated Glomerular Filt Rate > 60.0 mL/min (>60); Globulin 3.3 g/dL (1.7-4.1); Glucose 202 mg/dL (70-100); HEMOLYSIS < 15 (0-50); Potassium 3.6 mmol/L (3.4-5.1); Sodium 135 mmol/L (137-145)
[2020-01-07 05:38] LABS: NT-proBNP (BNP-Adult 18+) 2940 pg/mL (<125)
[2020-01-07] MEDS: ONDANSETRON 4 MG/2 ML INJ IV (05:57)
[2020-01-07] MEDS: ACETAMINOPHEN 325 MG TABLET 650 MG PO (05:57)
--- NOTE | 2020-01-07 07:12 | PC.NURSE ---
During admit patient was hyperverbal, discussed he is bipolar, and has mental issues. Feels he is judged. States he doesn't feel worthy of life, but when asked, he states he thinks about how it would hurt his , so he will not he states,.
[2020-01-07 07:59] LABS: Procalcitonin < 0.05 ng/mL (<0.5)
[2020-01-07] MEDS: AMANTADINE 100 MG CAPSULE PO ×2 (09:54→20:57)
[2020-01-07] MEDS: METFORMIN HCL 500 MG TABLET 1000 MG PO ×2 (09:54→16:56)
[2020-01-07] MEDS: DIGOXIN 0.125 MG TABLET PO (09:55)
[2020-01-07] MEDS: ENOXAPARIN 40 MG/0.4 ML SYRINGE SUBCUT (09:55)
[2020-01-07] MEDS: DIVALPROEX DR 250 MG TABLET 500 MG PO ×3 (09:55→20:58)
[2020-01-07] MEDS: AZITHROMYCIN 250 MG TABLET 500 MG PO (09:55)
[2020-01-07] MEDS: BUSPIRONE 15 MG TABLET 30 MG PO ×2 (09:55→20:58)
[2020-01-07] MEDS: ASPIRIN EC 81 MG TABLET PO (09:55)
[2020-01-07] MEDS: TORSEMIDE 10 MG TABLET 20 MG PO (09:56)
[2020-01-07] MEDS: METOPROLOL ER 50 MG TABLET 100 MG PO (09:56)
[2020-01-07] MEDS: LOSARTAN 50 MG TABLET PO ×2 (09:56→20:56)
[2020-01-07] MEDS: INSULIN ASPART 100 UNIT/ML INSULN PEN SUBCUT ×2 (10:14→17:02)
--- NOTE | 2020-01-07 12:26 | CM.DANOTE ---
DCP: Case reviewed, EMR reviewed. Obtained information from notes in chart to complete initial DCP assessment, for patient is in isolation. DCP assessment completed with information currently available. Patient is a 44 year old male who admitted early this morning to the care of the hospitalist team. PCP: Dr. Ortiz. Payer: confirmed: [employer]. Patient came to the hospital via family vehicle secondary to a cough and difficulty breathing. Patient is being tested for COVD-19, pending results. Patient holds current diagnosis of pneumonia. He has history of cardiomyopathy, and 15% ejection fraction. In recent note, is stated, he is not a candidate for a heart transplant due to mental issues. Patient has history of ADHD, and biploar disorder, and is on Adderall. Patient is also diabetic type 2. According to notes, patient resides in [place] with his spouse, Julianna. Due to his cardiac issues, patient does have history of some shortness of breath. He is unemployed. According to note, patient has seen psychiatrist, and is also under care of cardiology. He should be having an echo today. P: DCP to continue to follow and be available for any resources needed. Patient should be able to go home when he is medically stable. Phoebe Obrien RN/Field Technical Assistant
[2020-01-07] MEDS: ALBUTEROL HFA 60 PUFF/8 GM INH INH (13:57)
[2020-01-07] MEDS: ALBUTEROL/IPRATROPIUM MDI 2 PUFF INH ×2 (14:00→20:38)
[2020-01-07] MEDS: ATORVASTATIN 20 MG TABLET 80 MG PO (20:55)
[2020-01-07] MEDS: guaiFENesin ER 600 MG TAB 1200 MG PO (20:56)
[2020-01-07] MEDS: METOPROLOL ER 50 MG TABLET PO (20:56)
[2020-01-07] MEDS: METOCLOPRAMIDE HCL 10 MG TABLET PO (20:57)
[2020-01-08] VITALS (11 sets, daily range): BP systolic 92–156; BP diastolic 57–80; PULSE 69–90; RESP 14–20; TEMP 35.9–37.1; O2SAT 92–99
[2020-01-08] MEDS: ALBUTEROL/IPRATROPIUM MDI 2 PUFF INH ×2 (08:48→20:48)
[2020-01-08] MEDS: INSULIN ASPART 100 UNIT/ML INSULN PEN SUBCUT ×3 (08:50→17:11)
[2020-01-08] MEDS: ENOXAPARIN 40 MG/0.4 ML SYRINGE SUBCUT (08:51)
[2020-01-08] MEDS: AZITHROMYCIN 250 MG TABLET 500 MG PO (08:52)
[2020-01-08] MEDS: DIVALPROEX DR 250 MG TABLET 500 MG PO ×3 (08:54→21:02)
[2020-01-08] MEDS: METFORMIN HCL 500 MG TABLET 1000 MG PO ×2 (08:54→17:11)
[2020-01-08] MEDS: ASPIRIN EC 81 MG TABLET PO (08:54)
[2020-01-08] MEDS: AMANTADINE 100 MG CAPSULE PO ×2 (08:54→21:02)
[2020-01-08] MEDS: guaiFENesin ER 600 MG TAB 1200 MG PO ×2 (08:55→20:59)
[2020-01-08] MEDS: METOPROLOL ER 50 MG TABLET 100 MG PO ×2 (08:55→21:00)
[2020-01-08] MEDS: DIGOXIN 0.125 MG TABLET PO (08:55)
[2020-01-08] MEDS: TORSEMIDE 10 MG TABLET 20 MG PO ×2 (08:56→15:03)
[2020-01-08] MEDS: BUSPIRONE 15 MG TABLET 30 MG PO ×2 (08:56→21:01)
--- NOTE | 2020-01-08 12:06 | PM.PN.1 ---
Subjective Subjective Date Patient Seen: 01/08/20 Interval history: He is seen in his room today to follow-up his bipolar, metapneumovirus, cardiomyopathy, etc. the CT scan films are reviewed and are consistent with a classic presentation of castillo virus 19. His symptoms however have seemingly completely resolved despite his known severe cardiomyopathy and slowly rising BNP of 2940 today. He is discussed extensively with his . I met with the patient at length as he is quite scattered and irritable from his mental health condition. We considered discharging him today but due to the CT scan findings, out of precaution he will be observed for 1 more day on telemetry and will likely be able to return home under quarantine until his covid 19 testing returns. There are several medication adjustments that he requests be made immediately given his rather fragile ejection fraction status and mental health fragility. Exam Vital Signs (past 8 hours): - 01/08/20 06:00 01/08/20 08:00 01/08/20 08:48 Temperature 98.3 F 98.1 F Pulse Rate 69 74 90 Respiratory Rate 18 16 18 Blood Pressure 115/60 156/62 H Pulse Oximetry 97 97 96 01/08/20 08:52 01/08/20 08:55 Temperature Pulse Rate 69 69 Respiratory Rate Blood Pressure 115/60 115/60 Pulse Oximetry Oxygen Delivery Method Room Air Oxygen Flow Rate 0 Narrative Exam Narrative: Extremely irritable and distracted/tangential. No apparent respiratory distress. Most upset about the isolation requirements of the current viral outbreak. Heart is regular rate and rhythm without murmur. Lungs are clear to auscultation bilaterally Extremities have no ankle edema. Objective Labs Result Diagrams: 01/07/20 04:50 01/07/20 04:50 Assessment & Plan Assessment & Plan narrative: 1. Presumed community-acquired pneumonia, acute, present on admission -he received 1 dose of Zosyn in the ED -will continue azithromycin 500 mg p.o. daily -emergency department sent out a test for COVID-19, patient will be on droplet precautions, there is a low suspicion for this due to his viral respiratory panel being positive for metapneumovirus -he is actually doing quite well as far as his respiratory symptoms and so we considered discharging him today but close review of his chest x-ray and CT scan films is consistent with a possible viral pneumonia, so even though he already has a positive metapneumovirus we will watch him 1 more day to make sure this does not turn into a classic coronavirus cycle of improvement and then deterioration. He is certainly at very high risk with his already present severe cardiomyopathy. -met with and [id number] today to discuss his presentation and his likely discharge tomorrow. Their questions are answered. 2. Chronic left ventricular diastolic heart failure, chronic, present on admission -his proBNP was 2180 on admission and up to 2940 on 01/07. His family say that his baseline is 800 - 1000 and request that he receive a diuretic dose despite having no current CHF symptoms. A single dose of Torsemide will be given on 01/07. -last echocardiogram from 10/27/19 has an EF of 15-20%, although the report is contradictory and also states 25-30% -per Cardiology, they would like him to have another Echo but once the 10/27/19 report was located that order was canceled. -continue home dose of metoprolol succinate 200mg AM and 100 mg PM, and Entresto. His current list does not include the previously listed Losartan. -his dig level is 0.4. Will resume digoxin 125 mcg p.o. once daily -Continue Torsemide (prn), Spironolactone and Hydralazine. 3. Diabetes type 2, chronic, unknown if controlled, present on admission -hemoglobin A1c as ordered. Last A1c in September 2019 was 7.4. -continue metformin and glipizide. -start regular dose insulin correctional scale with a.c. and HS glucose checks, carb controlled diet 3. Hyperlipidemia, chronic, present on admission -continue home dose of atorvastatin 80 mg p.o. daily 4. Bipolar disorder, chronic not well controlled, present on admission -patient states that it is difficult to adjust any of his medications due to the interactions with his bipolar medications -patient will continue home doses of buspirone 30 mg p.o. b.i.d., divalproex 500 mg p.o. t.i.d and Oxcarbamazepine. -use Lorazepam for anxiety. At home he uses THC instead. VTE Prophylaxis: Bilateral SCDs and enoxaparin 40 mg subcu daily Disposition: Presumed eventual discharge to home Code Status: Full code Quality VTE Deep Vein Thrombosis/Pulmonary Embolism Present on Admission: No
[2020-01-08] MEDS: LORazepam 1 MG TABLET PO ×2 (12:35→21:00)
[2020-01-08] MEDS: ENTRESTO 1 EACH PO ×2 (12:56→21:01)
[2020-01-08] MEDS: ONDANSETRON 4 MG/2 ML INJ IV (13:42)
[2020-01-08 14:11] LABS: COVID19 Sendout Not Detected (Not Detected)
--- NOTE | 2020-01-08 14:25 | CM.DPC ---
DCP: continued: case received, EMR reviewed. Discussed POC in Team Rounds. KENDRA Berger stated that pt and his were expressing great distress over pt's complex psychiatirc home medication routine and need to get these in place SAMINA. She, the pharmacist and Hospitalist Dr. Dangelo planned to focus on specifics of this and get all needed medications ordered. Dr. Dangelo's note is not yet completed but can see by the medication list that many new psychotropic medications have been added. Pt is being treated for pneumonia and is waiting for a rule out COVID 19. Dr. Dangelo stated pt was at very high risk given his cardiac status and he did not plan to send pt home today. KENDRA Berger also confirmed that pt was not yet afebrile without use of medication to reduce temperature. Pt is up and independent in his room and can be seen now sitting on window bench talking on his phone. Will be following..anticipate pt will d/c to home setting when he is deemed stable for same and when symtom free to point where he can continue the rule out at home.
--- NOTE | 2020-01-08 15:36 | PC.NURSE ---
Addendum entered by Celine Eng R.N. 01/08/20 15:44: Special contact precautions for r/o COVID-19, appreciated throughout shift. Original Note: Day Shift Report received, care assumed. VSS. A&O, but anxious and restless r/t diagnoses of bipolar, anxiety, PTSD. Perseverating conversation, somewhat agitated. Responds well to time, conversation. PRN order for Ativan obtained, administered; pt. responded well. Via phone, pt's expressing frustration about regarding his meds and POC. She was unable or unwilling to discuss her questions with me; however, she discussed with patient pet caregiver, who communicated concerns to Kita instrument man. Kita was able to communicate with Dr. Maguire and it seems the medication orders have been worked out.
[2020-01-08] MEDS: ATORVASTATIN 20 MG TABLET 80 MG PO (20:58)
[2020-01-08] MEDS: OXCARBAZEPINE 600 MG 3 EACH PO (21:03)
[2020-01-08] MEDS: SODIUM CHLORIDE 0.9% FLUSH 10 ML IV (21:31)
[2020-01-09 00:40] VITALS: BP 115/65; PULSE 63; RESP 20; TEMP 36.1; O2SAT 97
[2020-01-09 03:30] VITALS: BP 112/67; PULSE 56; RESP 16; TEMP 36.2; O2SAT 96
[2020-01-09] MEDS: LORazepam 1 MG TABLET PO (04:17)
[2020-01-09 07:04] LABS: NT-proBNP (BNP-Adult 18+) 641 pg/mL (<125)
[2020-01-09 08:30] VITALS: BP 107/53; PULSE 56; RESP 18; TEMP 36.3; O2SAT 94
[2020-01-09] MEDS: ALBUTEROL/IPRATROPIUM MDI 2 PUFF INH (09:02)
[2020-01-09] MEDS: METFORMIN HCL 500 MG TABLET 1000 MG PO (09:20)
[2020-01-09] MEDS: AZITHROMYCIN 250 MG TABLET 500 MG PO (09:21)
[2020-01-09] MEDS: BUSPIRONE 15 MG TABLET 30 MG PO (09:21)
[2020-01-09] MEDS: AMANTADINE 100 MG CAPSULE PO (09:22)
[2020-01-09] MEDS: INSULIN ASPART 100 UNIT/ML INSULN PEN SUBCUT (09:22)
[2020-01-09] MEDS: guaiFENesin ER 600 MG TAB 1200 MG PO (09:29)
[2020-01-09] MEDS: ENTRESTO 1 EACH PO (09:29)
[2020-01-09] MEDS: TORSEMIDE 10 MG TABLET 20 MG PO (09:29)
[2020-01-09] MEDS: ENOXAPARIN 40 MG/0.4 ML SYRINGE SUBCUT (09:30)
[2020-01-09] MEDS: METOPROLOL ER 50 MG TABLET 200 MG PO (09:30)
[2020-01-09] MEDS: ASPIRIN EC 81 MG TABLET PO (09:30)
[2020-01-09] MEDS: SODIUM CHLORIDE 0.9% FLUSH 10 ML IV (09:31)
[2020-01-09] MEDS: DIGOXIN 0.125 MG TABLET PO (09:31)
[2020-01-09] MEDS: DIVALPROEX DR 250 MG TABLET 500 MG PO (09:31)
--- NOTE | 2020-01-09 14:10 | CM.DPC ---
DCP: continued: Case discussed in Team Rounds with pt expressing his strong desire to get home to his and dog SAMINA. Dr. Prince confirmed COVID-19 test was - and ok'd pt for home. A check in later in day showed that pt did leave as anticipated. His picked him up at the hospital entrance.
--- NOTE | 2020-01-09 18:42 | PM.DS.1 ---
History of Present Illness History of Present Illness Chief complaint: cough, difficulty breathing Narrative: Himanshu Weiss is a 44-year-old male with a history of congestive heart failure and an ejection fraction he states in the 15% range, ADHD, bipolar anxiety, and diabetes type 2 presents with the 2 day history of fevers, shortness of breath and a cough. His symptoms started yesterday with shortness of breath however he states that he short of breath all the time. He then had fevers on admission to the ED of 102.4. He states that he has had scant sputum. It denies chest pain, nausea and vomiting, dysuria, diarrhea, constipation, course lower extremity swelling. Emergency department provider discussed his case with his extrusion machine operator due to his cardiac condition. Patient states that he does not qualify for heart transplant due to his mental health issues. He states that he has been told he has 2 years to live and has lived 3 years since being told that prognosis. He states that taking Adderall contributed to his heart disease. Patient is quite tangential in his history, so it is difficult to obtain a clear history from him. Discharge Providers Provider Date of admission: 01/07/20 00:33 Discharge Date: 01/09/20 Primary care physician: Edward Ortiz MD Consults: 01/07/20 01:56 Consult to Respiratory Therapy Evaluate & Treat Comment: Physician Instructions: Evaluate and treat Discharge provider: Jan Prince MD Summary Hospital Course Discharge Diagnosis: 1. Viral pneumonia with human metapneumovirus 2. Chronic systolic heart failure 3. Type 2 diabetes 4. bipolar disorder Hospital Course: Patient admitted due to pneumonia with CT scan showing bilateral infiltrates. He tested negative for influenza and COVID - 19. His respiratory panel was positive for human metapneumovirus. He had temp of 102.4? on admission on January 05 and has been afebrile for the last couple of days. His WBC remained normal and procalcitonin less than 0.05 with a viral pneumonia. He was managed supportively with inhaler require supplemental O2. His cardiac status was stable. Status at Discharge Cognitive/behavioral status at discharge: oriented Functional status at discharge: independent ambulation Overall status at discharge: patient is back to baseline Time Spent with Patient Time spent: Less than 30 minutes Exam Vital Signs (past 8 hours): Oxygen Delivery Method Room Air Oxygen Flow Rate 0 Objective Labs Result Diagrams: 01/07/20 04:50 01/07/20 04:50 Labs: Laboratory Results - last 24 hr 01/09/20 05:24 NT-Pro-B Natriuret Pep 641 H Discharge Plan Discharge Plan Patient Disposition: Home Discharge comment: You were diagnosed with human metapneumovirus infection of the lungs. You do not need antibiotics. Use the Combivent Respimat until you are feeling better. You tested negative for coronavirus. Discharge orders & Medications Prescriptions: New Combivent Respimat 20-100 mcg/actuation Mist 2 puff INH RTBID Qty: 1 RF: 0 Continued aspirin 81 MG tablet,delayed release (DR/EC) 81 mg PO QDAY Qty: 30 RF: 0 allopurinol 100 mg tablet 100 mg PO Q DAY Qty: 90 RF: 3 amantadine HCl 100 mg capsule 100 mg PO BID Qty: 180 RF: 1 buspirone 30 mg tablet 30 mg PO BID Qty: 180 RF: 3 digoxin 125 mcg (0.125 mg) tablet 125 mcg PO DAILY Qty: 90 RF: 1 losartan [Cozaar] 50 mg tablet 50 mg PO BID Qty: 180 RF: 3 metformin 1,000 mg tablet 1,000 mg PO BIDCC Qty: 180 RF: 1 potassium chloride 10 mEq tablet extended release 10 meq PO DAILY Qty: 90 RF: 1 torsemide 20 mg tablet 20 mg PO Q DAY Qty: 90 RF: 1 metoprolol succinate 100 mg tablet extended release 24 hr See Rx Instructions PO DAILY Qty: 270 RF: 1 divalproex 500 mg tablet,delayed release (DR/EC) 500 mg PO TID Qty: 270 RF: 1 glipizide 10 mg tablet 10 mg PO BID Qty: 180 RF: 1 atorvastatin 80 mg tablet 80 mg PO DAILY RF: 0 magnesium chloride 64 mg tablet,delayed release (DR/EC) 64 mg PO DAILY Qty: 90 RF: 0 Follow up/Referrals: Edward Ortiz MD [Primary Care Provider] - Visit Report/Discharge Packet Instructions: Human Metapneumovirus Infection Discharge Data Primary Care Provider: Edward Ortiz Discharges patient from system. Discharge Date/Time: 01/09/20 12:57 Quality VTE Deep Vein Thrombosis/Pulmonary Embolism Present on Admission: No
== END 2020-01-09 12:57 | disposition home or self-care (01) | DRG 194 ==
LOC: ED 23:45 → AC 01-07 09:47
PROVIDERS: Family Medicine; Internal Medicine; Admitting Provider Nurse Practitioner Family; Emergency Provider Emergency Medicine; PCP Student in an Organized Health Care Education/Training Program; Referring Provider Emergency Medicine; Visit Provider Nurse Practitioner Family
DX: J12.3 Human metapneumovirus pneumonia (principal); I42.7 Cardiomyopathy due to drug and external agent; I50.22 Chronic systolic (congestive) heart failure; T43.625A Adverse effect of amphetamines, initial encounter; F31.9 Bipolar disorder, unspecified; G47.33 Obstructive sleep apnea (adult) (pediatric); E11.9 Type 2 diabetes mellitus without complications; E78.5 Hyperlipidemia, unspecified; Z79.84 Long term (current) use of oral hypoglycemic drugs; Z87.891 Personal history of nicotine dependence; Z03.818 Encounter for observation for suspected exposure to other biological agents ruled out
CPT/HCPCS: 36415; 71046; 71260; 80053; 80162; 82550; 82962; 83036; 83605; 83690; 83880; 84145; 84484; 85025; 85610; 85730; 87040; 87070; 87086; 87205; 87633; 87635; 93005; 94640; 96361; 96365; 99284; J1650; J2405; J2543; Q9967

== ENCOUNTER → 2020-09-02 14:48 | Outpatient (ROUT) | payer OTHER, SELFPAY ==
[2020-01-07 01:55] VITALS: BMI 38.2
[2020-09-02 15:09] LABS: Add Manual Diff / Slide Review NO; Basophils Absolute Auto 300 /uL (0-100); Basophils Percent Auto 3.4 % (0-2); Eosinophils Absolute Auto 300 /uL (0-450); Eosinophils Percent Auto 4.1 % (2-4); Hematocrit 42.8 % (41-53); Hemoglobin 14.8 g/dL (13.5-17.5); Lymphocytes Absolute Auto 2000 /uL (1100-4500); Lymphocytes Percent Auto 26.5 % (25-40); Mean Corpuscular HGB Conc 34.5 % (30-36); Monocytes Absolute Auto 600 /uL (0-900); Monocytes Percent Auto 7.4 % (3-14); Neutrophils Absolute Auto 4500 /uL (1500-7000); Neutrophils Percent Auto 58.6 % (50-75); Platelet Count 200 X10^3/uL (150-400); Red Blood Cell Count 4.92 X10^6/uL (4.5-5.9); Red Cell Distribution Width 14.3 % (11.6-14.8); White Blood Cell Count 7.6 X10^3/uL (4.5-11.0)
[2020-09-02 15:14] LABS: Alanine Aminotransferase 18 IU/L (<50); Albumin 4.4 g/dL (3.5-5.0); Albumin Globulin Ratio 1.4 (1.0-2.8); Alkaline Phosphatase 94 U/L (38-126); Aspartate Aminotransferase 25 IU/L (17-59); BUN Creatinine Ratio 19.8 (6-22); Bilirubin Total 0.4 mg/dL (0.2-1.3); Blood Urea Nitrogen 16 mg/dL (9-20); Calcium 8.8 mg/dL (8.4-10.2); Carbon Dioxide 31 mmol/L (22-32); Chloride 102 mmol/L (98-107); Cholesterol 194 mg/dL (140-199); Estimated Glomerular Filt Rate > 60.0 mL/min (>60); Globulin 3.1 g/dL (1.7-4.1); Glucose 144 mg/dL (70-100); HDL Cholesterol 49 mg/dL (40-60); HEMOLYSIS < 15 (0-50); LDL Cholesterol Calculated 114 mg/dL (<100); Potassium 4.4 mmol/L (3.4-5.1); Sodium 140 mmol/L (137-145); Total Protein 7.5 g/dL (6.3-8.2); Triglycerides 155 mg/dL (35-150); Uric Acid 6.5 mg/dL (3.5-8.5)
[2020-09-02 15:20] LABS: NT-proBNP (BNP-Adult 18+) 1520 pg/mL (<125)
== END ==
PROVIDERS: Visit Provider Internal Medicine
DX: I42.9 Cardiomyopathy, unspecified (principal); E79.0 Hyperuricemia without signs of inflammatory arthritis and tophaceous disease; E78.5 Hyperlipidemia, unspecified
CPT/HCPCS: 80053; 80061; 83880; 84443; 84550; 85025

== ENCOUNTER → 2020-10-07 07:57 | Outpatient (CLI) | payer OTHER, SELFPAY ==
[2020-01-07 01:55] VITALS: BMI 38.2
[2020-10-07 09:55] LABS: Cortisol AM (Before 10AM) 13.1 ug/dL (4.46-22.7)
== END ==
PROVIDERS: Referring Provider Internal Medicine; Visit Provider Internal Medicine
DX: E65 Localized adiposity (principal)
CPT/HCPCS: 36415; 82533

== ENCOUNTER → 2020-10-08 08:03 | Outpatient (CLI) | payer OTHER, SELFPAY ==
[2020-01-07 01:55] VITALS: BMI 38.2
[2020-10-08 09:46] LABS: Digoxin < 0.4 ng/mL (0.8-2.0)
[2020-10-08 11:10] LABS: Cortisol AM (Before 10AM) 6.67 ug/dL (4.46-22.7)
== END ==
LOC: LAB 08:04
PROVIDERS: PCP Internal Medicine; Referring Provider Internal Medicine; Visit Provider Internal Medicine
DX: I42.8 Other cardiomyopathies (principal); E85.0 Non-neuropathic heredofamilial amyloidosis
CPT/HCPCS: 36415; 80162; 82533

== ENCOUNTER → 2020-10-27 12:24 | Outpatient (CLI) | payer OTHER, SELFPAY ==
[2020-01-07 01:55] VITALS: BMI 38.2
[2020-10-28 05:11] LABS: Valproic Acid (Depakene) Total 46 ug/mL (50-100)
== END ==
PROVIDERS: PCP Internal Medicine; Referring Provider Psychiatry & Neurology Psychiatry; Visit Provider Psychiatry & Neurology Psychiatry
DX: F31.81 Bipolar II disorder (principal)
CPT/HCPCS: 36415; 80164

== ENCOUNTER 2020-10-31 15:58 | Emergency (ER) | payer OTHER, SELFPAY ==
[2020-01-07 01:55] VITALS: BMI 38.2
[2020-10-31] VITALS (11 sets, daily range): BP systolic 123–142; BP diastolic 65–84; PULSE 56–70; RESP 12–22; TEMP 36.6; O2SAT 96–100
--- NOTE | 2020-10-31 16:13 | DI.RAD.S_ITS ---
PROCEDURE: XR CHEST 1V INDICATIONS: chest pain TECHNIQUE: One view of the chest was acquired. COMPARISON: [facility], CR, XR CHEST 1V, 09/18/2019, 8:24. FINDINGS: Surgical changes and devices: Left chest wall single lead cardiac pacer is stable. Lungs and pleura: Lungs are clear. No pleural effusions or pneumothorax. Mediastinum: Mediastinal contours appear normal. Heart size is normal. Bones and chest wall: No suspicious bony lesions. Overlying soft tissues appear unremarkable. IMPRESSION: No acute cardiopulmonary disease process. Dictated by: Asuncion Molina MD, PhD on 10/31/2020 at 16:42 Approved by: Asuncion Molina MD, PhD on 10/31/2020 at 16:43
[2020-10-31 16:36] LABS: Add Manual Diff / Slide Review NO; Basophils Absolute Auto 100 /uL (0-100); Basophils Percent Auto 0.8 % (0-2); Eosinophils Absolute Auto 100 /uL (0-450); Eosinophils Percent Auto 1.2 % (2-4); Hematocrit 41.2 % (41-53); Hemoglobin 14.1 g/dL (13.5-17.5); Lymphocytes Absolute Auto 1700 /uL (1100-4500); Lymphocytes Percent Auto 26.6 % (25-40); Mean Corpuscular HGB Conc 34.3 % (30-36); Mean Corpuscular Hemoglobin 30.4 PG (26-34); Mean Corpuscular Volume 88.8 fL (80-100); Monocytes Absolute Auto 600 /uL (0-900); Monocytes Percent Auto 9.1 % (3-14); Neutrophils Absolute Auto 4100 /uL (1500-7000); Neutrophils Percent Auto 62.3 % (50-75); Platelet Count 212 X10^3/uL (150-400); Red Blood Cell Count 4.64 X10^6/uL (4.5-5.9); Red Cell Distribution Width 14.6 % (11.6-14.8); White Blood Cell Count 6.6 X10^3/uL (4.5-11.0)
[2020-10-31 16:45] LABS: Prothrombin Time 11.8 SECONDS (10.1-12.7)
[2020-10-31 16:48] LABS: PTT Partial Thromboplastin Tim 31 SECONDS (26.4-36.2)
[2020-10-31 16:53] LABS: Alanine Aminotransferase 14 IU/L (<50); Albumin 4.6 g/dL (3.5-5.0); Albumin Globulin Ratio 1.4 (1.0-2.8); Alkaline Phosphatase 85 U/L (38-126); Aspartate Aminotransferase 19 IU/L (17-59); BUN Creatinine Ratio 22.3 (6-22); Bilirubin Total 0.1 mg/dL (0.2-1.3); Blood Urea Nitrogen 21 mg/dL (9-20); Calcium 9.5 mg/dL (8.4-10.2); Carbon Dioxide 31 mmol/L (22-32); Chloride 99 mmol/L (98-107); Creatine Kinase 58 U/L (55-170); Estimated Glomerular Filt Rate > 60.0 mL/min (>60); Globulin 3.3 g/dL (1.7-4.1); Glucose 93 mg/dL (70-100); HEMOLYSIS < 15 (0-50); Lipase 228 U/L (23-300); Potassium 3.9 mmol/L (3.4-5.1); Sodium 141 mmol/L (137-145); Total Protein 7.9 g/dL (6.3-8.2)
[2020-10-31 17:05] LABS: Troponin I < 0.012 ng/mL (0.01-0.034)
--- NOTE | 2020-10-31 18:45 | ED_ITS ---
HPI - Chest Pain General Chief Complaint: Chest Pain Stated Complaint: SOB Time Seen by Provider: 10/31/20 18:05 Source: patient Mode of arrival: Ambulatory Limitations: no limitations History of Present Illness HPI narrative: Patient is a 44-year-old male. With known mental health issues and also cardiomyopathy/CHF. He states that his heart issues were caused by the medications that he has taken in the past. He has got a demand pacemaker/ICD in place. States he does have a history of heart failure. Is followed by mental health and cardiology and also primary provider. He has noticed that over the past several weeks and worsening over the past couple days dyspnea on exertion. States that it feels like it is difficult for him to take a deep breath. This is not a constant symptom. When I did my interview he states is sitting in bed he is feeling fine. He denies any chest pain. He is taking his medications as directed. Related Data Home Medications Medication Instructions Recorded Confirmed aspirin 81 mg PO QDAY #30 tab 08/20/16 01/07/20 atorvastatin 80 mg tablet 80 mg PO DAILY 10/28/19 01/07/20 sacubitril 49 mg-valsartan 51 mg 1 tab PO BID 02/24/20 tablet Previous Rx's Medication Instructions Recorded allopurinol 100 mg tablet 100 mg PO Q DAY #90 tab 09/05/19 buspirone 30 mg tablet 30 mg PO BID #180 tab 09/05/19 digoxin 125 mcg (0.125 mg) tablet 125 mcg PO DAILY #90 tab 09/05/19 losartan 50 mg tablet 50 mg PO BID #180 tab 09/05/19 potassium chloride 10 mEq 10 meq PO DAILY #90 tab 09/05/19 tablet,extended release torsemide 20 mg tablet 20 mg PO Q DAY #90 tab 09/05/19 metoprolol succinate 100 mg See Rx Instructions PO DAILY #270 09/07/19 tablet,extended release 24 hr tab glipizide 10 mg tablet 10 mg PO BID #180 tab 10/18/19 ipratropium-albuterol [Combivent 2 puff INH RTBID #1 g 01/09/20 Respimat] amantadine HCl 100 mg capsule 100 mg PO BID #180 cap 03/18/20 divalproex 500 mg tablet,delayed 500 mg PO TID #270 tab 03/18/20 release metformin 1,000 mg tablet 1,000 mg PO BIDCC #180 tab 03/18/20 magnesium chloride 64 mg 64 mg PO DAILY #90 tab 07/13/20 (magnesium chloride) tablet,delayed release Allergies Allergy/AdvReac Type Severity Reaction Status Date / Time paliperidone [From INVEGA] Allergy Severe LOSS OF Verified 08/19/19 09:39 SPEECH AND MOTOR CONTROL NSAIDS (Non-Steroidal AdvReac Unknown STATES Verified 08/19/19 09:39 Anti-Inflamma INTERACTS [NSAIDS (NON-STEROIDAL WITH HOME ANTI-INFLAMMA] MEDS Review of Systems Constitutional Constitutional: Denies fever(s) Cardiovascular Cardiovascular: Denies chest pain, Reports dyspnea and Reports dyspnea on exertion Respiratory Respiratory: Denies cough, Reports dyspnea and Reports dyspnea on exertion Gastrointestinal Gastrointestinal: Denies abdominal pain, Denies nausea and Denies vomiting Integumentary/Breasts Skin/Breast: Denies rash Neurologic Neurologic: Denies behavioral changes Psychiatric Psychiatric: Denies behavioral changes Hematologic/Lymphatic On Anticoagulants: No Allergic/Immunologic Allergic/Immunologic: Denies urticaria Patient History Medical History Drug-induced cardiomyopathy (2016) Obstructive sleep apnea hypopnea, severe Social History marital status: household members: spouse education level: college occupational status: disabled Smoking Status: Former smoker alcohol intake: former substance use type: does not use Smoking Status: Former smoker alcohol intake frequency: 0-2 drinks per day Substance Use Type: marijuana Exam Initial Vital Signs Initial Vital Signs: Vital Signs Temperature 97.8 F 10/31/20 16:07 Pulse Rate 65 10/31/20 16:07 Respiratory Rate 22 10/31/20 16:07 Blood Pressure 139/65 10/31/20 16:07 Pulse Oximetry 99 10/31/20 16:07 Const General: cooperative and comfortable Limitations: mental status not altered HENMT Head: normal to inspection and normocephalic Resp Effort & Inspection: normal respiratory effort Auscultation: clear to auscultation bilaterally Cardio Rate: regular rate Rhythm: regular rhythm Skin Lesions: no lesions Rashes: no rashes Neuro General: patient alert and patient awake Cognition: normal cognition Speech: speech normal Extrem General: capillary refill normal Psych Appearance: grossly normal and well kempt Course Orders Ordered: ED Orders 10/31/20 16:13 XR chest 1V Stat EKG-12 Lead Stat 10/31/20 16:27 Complete Blood Count AUTO DIFF Stat Comprehensive Metabolic Panel Stat Lipase Stat Partial Thromboplastin Time Stat Prothrombin Time INR Stat Troponin & CK Cardiac Panel Stat 10/31/20 19:11 NT-proBNP (BNP-Adult 18+) Stat Troponin & CK Cardiac Panel Stat Vital Signs Vital signs: Vital Signs - 8 hr 10/31/20 17:00 10/31/20 17:30 10/31/20 18:00 Pulse Rate 60 56 L 58 L Respiratory Rate 17 15 18 Blood Pressure 130/79 128/81 142/80 H Pulse Oximetry 96 97 100 10/31/20 18:30 10/31/20 19:00 10/31/20 19:30 Pulse Rate 58 L 64 56 L Respiratory Rate 18 15 Blood Pressure 137/76 Pulse Oximetry 98 99 98 10/31/20 20:00 10/31/20 20:21 Pulse Rate 61 70 Respiratory Rate 16 Blood Pressure 133/84 Pulse Oximetry 99 98 MDM - Chest Pain Medical Records Data Attestation: I reviewed the patient's medical records. Lab Data Attestation: I reviewed the patient's lab results. Result diagrams: 10/31/20 16:27 10/31/20 16:27 Labs: Lab Results 10/31/20 10/31/20 10/31/20 Range/Units 16:27 16:27 16:27 WBC 6.6 (4.5-11.0) X10^3/uL RBC 4.64 (4.5-5.9) X10^6/uL Hgb 14.1 (13.5-17.5) g/dL Hct 41.2 (41-53) % MCV 88.8 (80-100) fL MCH 30.4 (26-34) PG MCHC 34.3 (30-36) % RDW 14.6 (11.6-14.8) % Plt Count 212 (150-400) X10^3/uL Neut % (Auto) 62.3 (50-75) % Lymph % (Auto) 26.6 (25-40) % Elk % (Auto) 9.1 (3-14) % Eos % (Auto) 1.2 L (2-4) % Baso % (Auto) 0.8 (0-2) % Neut # (Auto) 4100 (9191-4142) /uL Lymph # (Auto) 1700 (2530-2117) /uL Elk # (Auto) 600 (0-900) /uL Eos # (Auto) 100 (0-450) /uL Baso # (Auto) 100 (0-100) /uL PT 11.8 (10.1-12.7) SECONDS INR 1.0 (0.9-1.3) APTT 31 (26.4-36.2) SECONDS Sodium 141 (137-145) mmol/L Potassium 3.9 (3.4-5.1) mmol/L Chloride 99 (98-107) mmol/L Carbon Dioxide 31 (22-32) mmol/L BUN 21 H (9-20) mg/dL Creatinine 0.94 (0.66-1.25) mg/dL Estimated GFR > 60.0 (>60) mL/min BUN/Creatinine Ratio 22.3 H (6-22) Glucose 93 (70-100) mg/dL Calcium 9.5 (8.4-10.2) mg/dL Total Bilirubin 0.1 L (0.2-1.3) mg/dL AST 19 (17-59) IU/L ALT 14 (<50) IU/L Alkaline Phosphatase 85 (38-126) U/L Total Creatine Kinase 58 (55-170) U/L CK-MB (CK-2) TNP CK-MB (CK-2) Rel Index TNP Troponin I < 0.012 (0.01-0.034) ng/mL NT-Pro-B Natriuret Pep (<125) pg/mL Total Protein 7.9 (6.3-8.2) g/dL Albumin 4.6 (3.5-5.0) g/dL Globulin 3.3 (1.7-4.1) g/dL Albumin/Globulin Ratio 1.4 (1.0-2.8) Lipase 228 (23-300) U/L 10/31/20 Range/Units 19:11 WBC (4.5-11.0) X10^3/uL RBC (4.5-5.9) X10^6/uL Hgb (13.5-17.5) g/dL Hct (41-53) % MCV (80-100) fL MCH (26-34) PG MCHC (30-36) % RDW (11.6-14.8) % Plt Count (150-400) X10^3/uL Neut % (Auto) (50-75) % Lymph % (Auto) (25-40) % Elk % (Auto) (3-14) % Eos % (Auto) (2-4) % Baso % (Auto) (0-2) % Neut # (Auto) (2204-0095) /uL Lymph # (Auto) (9339-6215) /uL Elk # (Auto) (0-900) /uL Eos # (Auto) (0-450) /uL Baso # (Auto) (0-100) /uL PT (10.1-12.7) SECONDS INR (0.9-1.3) APTT (26.4-36.2) SECONDS Sodium (137-145) mmol/L Potassium (3.4-5.1) mmol/L Chloride (98-107) mmol/L Carbon Dioxide (22-32) mmol/L BUN (9-20) mg/dL Creatinine (0.66-1.25) mg/dL Estimated GFR (>60) mL/min BUN/Creatinine Ratio (6-22) Glucose (70-100) mg/dL Calcium (8.4-10.2) mg/dL Total Bilirubin (0.2-1.3) mg/dL AST (17-59) IU/L ALT (<50) IU/L Alkaline Phosphatase (38-126) U/L Total Creatine Kinase 56 (55-170) U/L CK-MB (CK-2) TNP CK-MB (CK-2) Rel Index TNP Troponin I < 0.012 (0.01-0.034) ng/mL NT-Pro-B Natriuret Pep 427 H (<125) pg/mL Total Protein (6.3-8.2) g/dL Albumin (3.5-5.0) g/dL Globulin (1.7-4.1) g/dL Albumin/Globulin Ratio (1.0-2.8) Lipase (23-300) U/L Imaging Data Chest x-ray: Radiologist's Impression: [address] [id number] ReportSigned Patient: Himanshu Nguyễn AMR#: [id number]: 1975Acct:[id number]/Sex: 44 / MDate of Service: 10/31/20Loc: EDAccession Number: [id number] Procedure: XR chest 1V Ordering Provider: Skylar Arce D.O. PROCEDURE: XR CHEST 1V INDICATIONS: chest pain TECHNIQUE: One view of the chest was acquired. COMPARISON: [facility], XR CHEST 1V, 09/18/2019, 8:24. FINDINGS: Surgical changes and devices: Left chest wall single lead cardiac pacer is stable. Lungs and pleura: Lungs are clear. No pleural effusions or pneumothorax. Mediastinum: Mediastinal contours appear normal. Heart size is normal. Bones and chest wall: No suspicious bony lesions. Overlying soft tissues appear unremarkable. IMPRESSION: No acute cardiopulmonary disease process. Dictated by: Asuncion Molina MD, PhD on 10/31/2020 at 16:42 Approved by: Asuncion Molina MD, PhD on 10/31/2020 at 16:43 ECG Data Attestation: I personally reviewed and interpreted this ECG as follows: Prior ECG tracings: not available for review Interpretation: Sinus bradycardia Ventricular rate of 59 Left axis deviation LVH QRS 114 milliseconds Normal QTC No ST T wave changes MDM Narrative Medical decision making narrative: Clinically patient is not in heart failure. He is not hypoxic, not tachypneic, not hypotensive, chest x-ray not consistent with heart failure. He is not hypertensive. He has got a clear lung exam. EKG is unremarkable. BNP is unremarkable. Patient ambulated and stated that he did feel somewhat short of breath however he was not hypoxic with ambulation. He did recently have some change in his medications. He states this was done under the direction of both his psychologist and also his signal intelligence/electronic warfare. I do suspect that there is a mental health component/anxiety component to his symptoms today. I feel patient could be discharged home without further workup. Low suspicion for ACS. Will have him contact his signal intelligence/electronic warfare for a follow-up. He was given return precautions. His family was at bedside for these discussions. On expressed understanding and agreement. Discharge Plan Departure Patient Disposition: Home Clinical Impression: Shortness of breath Instructions: DI for Shortness of Breath Activity Restrictions/Additional Instructions: Recommend you continue all of your medications as directed. Contact your primary provider and your signal intelligence/electronic warfare for a follow-up. Return to the emergency department for any new or worsening symptoms. Prescriptions: No Action aspirin 81 MG tablet,delayed release (DR/EC) 81 mg PO QDAY Qty: 30 RF: 0 allopurinol 100 mg tablet 100 mg PO Q DAY Qty: 90 RF: 3 buspirone 30 mg tablet 30 mg PO BID Qty: 180 RF: 3 digoxin 125 mcg (0.125 mg) tablet 125 mcg PO DAILY Qty: 90 RF: 1 losartan [Cozaar] 50 mg tablet 50 mg PO BID Qty: 180 RF: 3 potassium chloride 10 mEq tablet extended release 10 meq PO DAILY Qty: 90 RF: 1 torsemide 20 mg tablet 20 mg PO Q DAY Qty: 90 RF: 1 metoprolol succinate 100 mg tablet extended release 24 hr See Rx Instructions PO DAILY Qty: 270 RF: 1 glipizide 10 mg tablet 10 mg PO BID Qty: 180 RF: 1 atorvastatin 80 mg tablet 80 mg PO DAILY RF: 0 Entresto 49-51 mg tablet 1 tab PO BID RF: 0 divalproex 500 mg tablet,delayed release (DR/EC) 500 mg PO TID Qty: 270 RF: 1 metformin 1,000 mg tablet 1,000 mg PO BIDCC Qty: 180 RF: 1 amantadine HCl 100 mg capsule 100 mg PO BID Qty: 180 RF: 1 magnesium chloride 64 mg tablet,delayed release (DR/EC) 64 mg PO DAILY Qty: 90 RF: 1 Combivent Respimat 20-100 mcg/actuation Mist 2 puff INH RTBID Qty: 1 RF: 0 Referrals: Shruthi Nielsen MD [Primary Care Provider] -
[2020-10-31 19:32] LABS: Creatine Kinase 56 U/L (55-170)
[2020-10-31 19:45] LABS: NT-proBNP (BNP-Adult 18+) 427 pg/mL (<125); Troponin I < 0.012 ng/mL (0.01-0.034)
== END 2020-10-31 20:21 | disposition home or self-care (01) ==
PROVIDERS: Emergency Medicine; Emergency Provider Emergency Medicine; PCP Internal Medicine
DX: R06.02 Shortness of breath (principal); R07.9 Chest pain, unspecified; R00.1 Bradycardia, unspecified; Z95.0 Presence of cardiac pacemaker; I50.9 Heart failure, unspecified
CPT/HCPCS: 36415; 71045; 80053; 82550; 83690; 83880; 84484; 85025; 85610; 85730; 93005; 93010; 99283; 99284

== ENCOUNTER → 2021-01-03 09:37 | Outpatient (CLI) | payer OTHER, SELFPAY ==
[2020-01-07 01:55] VITALS: BMI 38.2
[2021-01-03 11:05] LABS: Blood Urea Nitrogen 21 mg/dL (9-20); Calcium 9.2 mg/dL (8.4-10.2); Carbon Dioxide 32 mmol/L (22-32); Chloride 99 mmol/L (98-107); Estimated Glomerular Filt Rate > 60.0 mL/min (>60); Glucose 186 mg/dL (70-100); HEMOLYSIS < 15 (0-50); Potassium 4.4 mmol/L (3.4-5.1); Sodium 138 mmol/L (137-145)
== END ==
PROVIDERS: PCP Internal Medicine; Referring Provider Internal Medicine; Visit Provider Internal Medicine
DX: E87.6 Hypokalemia (principal)
CPT/HCPCS: 36415; 80048

== ENCOUNTER → 2021-01-20 07:51 | Outpatient (CLI) | payer MEDICARE, SELFPAY ==
[2020-01-07 01:55] VITALS: BMI 38.2
[2021-01-20] MEDS: COVID-19 VACC #1, MRNA(MOD) 100 MCG/0.5 ML VIAL IM (07:56)
== END ==
PROVIDERS: PCP Internal Medicine; Visit Provider Internal Medicine
DX: Z23 Encounter for immunization (principal)
CPT/HCPCS: 0011A; 91301

== ENCOUNTER → 2021-02-17 07:37 | Outpatient (CLI) | payer MEDICARE, SELFPAY ==
[2020-01-07 01:55] VITALS: BMI 38.2
[2021-02-17] MEDS: COVID-19 VACC #2, MRNA(MOD) 100 MCG/0.5 ML VIAL IM (07:45)
== END ==
PROVIDERS: PCP Internal Medicine; Visit Provider Internal Medicine
DX: Z23 Encounter for immunization (principal)
CPT/HCPCS: 0012A; 91301

== ENCOUNTER 2021-04-27 09:22 | Emergency (ER) | payer OTHER, SELFPAY ==
[2020-01-07 01:55] VITALS: BMI 38.2
[2021-04-27 10:24] VITALS: BP 114/70; PULSE 86; RESP 20; TEMP 36.7; O2SAT 98; BMI 36.2
[2021-04-27 10:53] LABS: UR Morphine/Opiate cutoff 300 Negative (Negative); Ur Creatinine Normal (Normal); Ur Specific Gravity Normal (Normal); Urine Amphetamines Negative (Negative); Urine Barbiturates Negative (Negative); Urine Benzodiazepines Negative (Negative); Urine Cocaine Negative (Negative); Urine MDMA Negative (Negative); Urine Methadone Negative (Negative); Urine Methamphetamines Negative (Negative); Urine Oxycodone Negative (Negative); Urine Phencyclidine Negative (Negative); Urine Tetrahydrocannabinol Positive (Negative); Urine Tricyclic Antidepressant Negative (Negative); Urine pH Normal (Normal)
[2021-04-27 11:16] LABS: Add Manual Diff / Slide Review NO; Basophils Absolute Auto 100 /uL (0-100); Eosinophils Absolute Auto 100 /uL (0-450); Eosinophils Percent Auto 1.2 % (2-4); Hematocrit 39.1 % (41-53); Hemoglobin 13.6 g/dL (13.5-17.5); Lymphocytes Absolute Auto 1400 /uL (1100-4500); Lymphocytes Percent Auto 26.7 % (25-40); Mean Corpuscular HGB Conc 34.8 % (30-36); Mean Corpuscular Hemoglobin 30.7 PG (26-34); Mean Corpuscular Volume 88.2 fL (80-100); Monocytes Absolute Auto 500 /uL (0-900); Monocytes Percent Auto 9.2 % (3-14); Neutrophils Absolute Auto 3300 /uL (1500-7000); Neutrophils Percent Auto 61.9 % (50-75); Platelet Count 193 X10^3/uL (150-400); Red Blood Cell Count 4.43 X10^6/uL (4.5-5.9); Red Cell Distribution Width 14.5 % (11.6-14.8); White Blood Cell Count 5.3 X10^3/uL (4.5-11.0)
[2021-04-27 11:32] LABS: Acetaminophen < 10 ug/mL (10-30); Alanine Aminotransferase 14 IU/L (<50); Albumin Globulin Ratio 1.3 (1.0-2.8); Alkaline Phosphatase 78 U/L (38-126); Aspartate Aminotransferase 17 IU/L (17-59); BUN Creatinine Ratio 18.6 (6-22); Bilirubin Total 0.3 mg/dL (0.2-1.3); Blood Urea Nitrogen 16 mg/dL (9-20); Calcium 9.4 mg/dL (8.4-10.2); Carbon Dioxide 32 mmol/L (22-32); Chloride 101 mmol/L (98-107); Estimated Glomerular Filt Rate > 60.0 mL/min (>60); Ethanol (ETOH) < 10 mg/dL; Globulin 3.1 g/dL (1.7-4.1); Glucose 169 mg/dL (70-100); HEMOLYSIS < 15 (0-50); Potassium 4.4 mmol/L (3.4-5.1); Salicylate < 1.0 mg/dL (<20); Sodium 140 mmol/L (137-145); Total Protein 7.1 g/dL (6.3-8.2)
[2021-04-27 12:01] LABS: TSH w/ Reflex to FT4 0.56 uIU/mL (0.47-4.68)
--- NOTE | 2021-04-27 12:43 | ED_ITS ---
HPI - Psych <Nela Bueno PA-C - Last Filed: 04/27/21 20:03> General Chief Complaint: Psychiatric Symptoms Stated Complaint: went after self w/knife this morning Time Seen by Provider: 04/27/21 10:19 Source: patient Mode of arrival: Ambulatory History of Present Illness HPI Narrative: 45-year-old male PMH asthma, CHF, SVT, T2DM, HTN, HLD, bipolar with history of multiple previous psychiatric hospitalizations for medication management as well as 1 prior suicide attempt who presents to the ER with at bedside complaining of feeling ?crazy with new onset, worsening paranoia gradually over the last 6-8 weeks that he feels is associated with new bipolar medication (vrylar?). This morning with a bedside states he was angry despite 8 hours of sleep, he became 'focused on the knife', and expressed SI. No HI or AVH. Related Data Home Medications Medication Instructions Recorded Confirmed aspirin 81 mg tablet,delayed 81 mg PO QDAY #30 tab 08/20/16 01/07/20 release atorvastatin 80 mg tablet 80 mg PO DAILY 10/28/19 01/07/20 sacubitril 49 mg-valsartan 51 mg 1 tab PO BID 02/24/20 tablet (Entresto) Previous Rx's Medication Instructions Recorded allopurinol 100 mg tablet 100 mg PO Q DAY #90 tab 09/05/19 buspirone 30 mg tablet 30 mg PO BID #180 tab 09/05/19 digoxin 125 mcg (0.125 mg) tablet 125 mcg PO DAILY #90 tab 09/05/19 losartan 50 mg tablet (Cozaar) 50 mg PO BID #180 tab 09/05/19 potassium chloride 10 mEq 10 meq PO DAILY #90 tab 09/05/19 tablet,extended release torsemide 20 mg tablet 20 mg PO Q DAY #90 tab 09/05/19 metoprolol succinate 100 mg See Rx Instructions PO DAILY #270 09/07/19 tablet,extended release 24 hr tab glipizide 10 mg tablet 10 mg PO BID #180 tab 10/18/19 ipratropium 20 mcg-albuterol 100 2 puff INH RTBID #1 g 01/09/20 mcg/actuation mist for inhalation (Combivent Respimat) amantadine HCl 100 mg capsule 100 mg PO BID #60 cap 01/23/21 divalproex 500 mg tablet,delayed 500 mg PO TID #90 tab 01/23/21 release magnesium chloride 64 mg 64 mg PO DAILY #30 tab 01/23/21 (magnesium chloride) tablet,delayed release metformin 1,000 mg tablet 1,000 mg PO BIDCC #60 tab 01/23/21 Allergies Allergy/AdvReac Type Severity Reaction Status Date / Time paliperidone [From INVEGA] Allergy Severe LOSS OF Verified 08/19/19 09:39 SPEECH AND MOTOR CONTROL NSAIDS (Non-Steroidal AdvReac Unknown STATES Verified 08/19/19 09:39 Anti-Inflamma INTERACTS [NSAIDS (NON-STEROIDAL WITH HOME ANTI-INFLAMMA] MEDS Review of Systems <Nela Bueno PA-C - Last Filed: 04/27/21 20:03> Review of Systems Narrative: General: denies fever, chills Head/Neck: denies headache, neck pain Eyes: denies visual changes, eye pain Cardio: denies chest pain, palpitations Respiratory: denies shortness of breath, cough GI: denies abdominal pain, nausea, vomiting, or diarrhea : denies dysuria, hematuria MSK: denies joint pain, muscle weakness Skin: denies rash, itching Neuro: denies LOC, numbness, tingling, loss of sensory/motor function Psych: Reports SI, abnormal behavior, paranoia Patient History <Nela Bueno PA-C - Last Filed: 04/27/21 20:03> Medical History (Updated 04/27/21 @ 14:04 by Nela Bueno PA-C) Drug-induced cardiomyopathy (2016) Obstructive sleep apnea hypopnea, severe Social History marital status: household members: spouse education level: college occupational status: disabled Smoking Status: Former smoker alcohol intake: former substance use type: does not use Smoking Status: Former smoker alcohol intake frequency: 0-2 drinks per day Substance Use Type: marijuana Exam <Nela Bueno PA-C - Last Filed: 04/27/21 20:03> Narrative Exam Narrative: Independently reviewed vitals signs and nursing notes. General: Awake, alert, nontoxic, no cardiorespiratory distress Head/Neck: Atraumatic, neck full range of motion Eyes: EOMI, conjunctiva normal Nose: nares patent, no rhinorrhea Mouth/Throat: moist mucus membranes, posterior pharynx normal, no oral lesions Cardio: Regular rate and rhythm, no peripheral edema Respiratory: respirations unlabored without wheezing, stridor, or rales. No retractions. GI: Abdomen soft, nontender MSK: Moves all extremities, neurovascularly intact Skin: Normal capillary refill, no rash Neuro: Normal speech and cognition, normal gait Initial Vital Signs Initial Vital Signs: Vital Signs Temperature 98.0 F 04/27/21 10:24 Pulse Rate 86 04/27/21 10:24 Respiratory Rate 20 04/27/21 10:24 Blood Pressure 114/70 04/27/21 10:24 Pulse Oximetry 98 04/27/21 10:24 <Aury Merida DO - Last Filed: 04/27/21 21:19> Initial Vital Signs Initial Vital Signs: Vital Signs Temperature 98.0 F 04/27/21 10:24 Pulse Rate 86 04/27/21 10:24 Respiratory Rate 20 04/27/21 10:24 Blood Pressure 114/70 04/27/21 10:24 Pulse Oximetry 98 04/27/21 10:24 Course <Nela Bueno PA-C - Last Filed: 04/27/21 20:03> Orders Ordered: ED Orders 04/27/21 11:02 Acetaminophen Stat Complete Blood Count AUTO DIFF Stat Comprehensive Metabolic Panel Stat Ethanol (ETOH) Stat Salicylate Stat TSH w/ Reflex to FT4 Stat Consultations Consultation #1: Consult to social Work who discussed at length patient's symptoms and disposition options. Patient is not SI at time of evaluation and was given the option to go home with a safety contract if he felt safe at home at or inpatient to manage medications. Discussed these options with the social worker school and agree with these disposition options. Ultimately, patient decided that he would prefer to go home with at bedside and have outpatient manage ment. Vital Signs Vital signs: Vital Signs - 8 hr 04/27/21 14:19 Pulse Rate 64 Respiratory Rate 20 Blood Pressure 131/71 Pulse Oximetry 100 <Aury Merida DO - Last Filed: 04/27/21 21:19> Orders Ordered: ED Orders 04/27/21 11:02 Acetaminophen Stat Complete Blood Count AUTO DIFF Stat Comprehensive Metabolic Panel Stat Ethanol (ETOH) Stat Salicylate Stat TSH w/ Reflex to FT4 Stat Vital Signs Vital signs: Vital Signs - 8 hr 04/27/21 14:19 Pulse Rate 64 Respiratory Rate 20 Blood Pressure 131/71 Pulse Oximetry 100 [facility] - Psych <Nela Bueno PA-C - Last Filed: 04/27/21 20:03> Lab Data Result diagrams: 04/27/21 11:02 04/27/21 11:02 Labs: Lab Results 04/27/21 04/27/21 04/27/21 Range/Units 10:36 11:02 11:02 WBC 5.3 (4.5-11.0) X10^3/uL RBC 4.43 L (4.5-5.9) X10^6/uL Hgb 13.6 (13.5-17.5) g/dL Hct 39.1 L (41-53) % MCV 88.2 (80-100) fL MCH 30.7 (26-34) PG MCHC 34.8 (30-36) % RDW 14.5 (11.6-14.8) % Plt Count 193 (150-400) X10^3/uL Neut % (Auto) 61.9 (50-75) % Lymph % (Auto) 26.7 (25-40) % [place] % (Auto) 9.2 (3-14) % Eos % (Auto) 1.2 L (2-4) % Baso % (Auto) 1.0 (0-2) % Neut # (Auto) 3300 (3327-9278) /uL Lymph # (Auto) 1400 (7899-3120) /uL [place] # (Auto) 500 (0-900) /uL Eos # (Auto) 100 (0-450) /uL Baso # (Auto) 100 (0-100) /uL Sodium 140 (137-145) mmol/L Potassium 4.4 (3.4-5.1) mmol/L Chloride 101 (98-107) mmol/L Carbon Dioxide 32 (22-32) mmol/L BUN 16 (9-20) mg/dL Creatinine 0.86 (0.66-1.25) mg/dL Estimated GFR > 60.0 (>60) mL/min BUN/Creatinine Ratio 18.6 (6-22) Glucose 169 H (70-100) mg/dL Calcium 9.4 (8.4-10.2) mg/dL Total Bilirubin 0.3 (0.2-1.3) mg/dL AST 17 (17-59) IU/L ALT 14 (<50) IU/L Alkaline Phosphatase 78 (38-126) U/L Total Protein 7.1 (6.3-8.2) g/dL Albumin 4.0 (3.5-5.0) g/dL Globulin 3.1 (1.7-4.1) g/dL Albumin/Globulin Ratio 1.3 (1.0-2.8) TSH (0.47-4.68) uIU/mL Salicylates < 1.0 (<20) mg/dL U Opiates 300ng/mL cut Negative (Negative) Ur Oxycodone Screen Negative (Negative) Urine Methadone Screen Negative (Negative) Acetaminophen < 10 L (10-30) ug/mL Ur Barbiturates Screen Negative (Negative) U Tricyclic Antidepress Negative (Negative) Ur Phencyclidine Scrn Negative (Negative) Ur Amphetamines Screen Negative (Negative) U Methamphetamines Scrn Negative (Negative) Ur MDMA Scrn (Ecstasy) Negative (Negative) U Benzodiazepines Scrn Negative (Negative) Urine Cocaine Screen Negative (Negative) U Marijuana (THC) Screen Positive H (Negative) Ethyl Alcohol < 10 ( - 10) mg/dL 04/27/21 Range/Units 11:02 WBC (4.5-11.0) X10^3/uL RBC (4.5-5.9) X10^6/uL Hgb (13.5-17.5) g/dL Hct (41-53) % MCV (80-100) fL MCH (26-34) PG MCHC (30-36) % RDW (11.6-14.8) % Plt Count (150-400) X10^3/uL Neut % (Auto) (50-75) % Lymph % (Auto) (25-40) % [place] % (Auto) (3-14) % Eos % (Auto) (2-4) % Baso % (Auto) (0-2) % Neut # (Auto) (4932-0188) /uL Lymph # (Auto) (7674-7177) /uL [place] # (Auto) (0-900) /uL Eos # (Auto) (0-450) /uL Baso # (Auto) (0-100) /uL Sodium (137-145) mmol/L Potassium (3.4-5.1) mmol/L Chloride (98-107) mmol/L Carbon Dioxide (22-32) mmol/L BUN (9-20) mg/dL Creatinine (0.66-1.25) mg/dL Estimated GFR (>60) mL/min BUN/Creatinine Ratio (6-22) Glucose (70-100) mg/dL Calcium (8.4-10.2) mg/dL Total Bilirubin (0.2-1.3) mg/dL AST (17-59) IU/L ALT (<50) IU/L Alkaline Phosphatase (38-126) U/L Total Protein (6.3-8.2) g/dL Albumin (3.5-5.0) g/dL Globulin (1.7-4.1) g/dL Albumin/Globulin Ratio (1.0-2.8) TSH 0.56 (0.47-4.68) uIU/mL Salicylates (<20) mg/dL U Opiates 300ng/mL cut (Negative) Ur Oxycodone Screen (Negative) Urine Methadone Screen (Negative) Acetaminophen (10-30) ug/mL Ur Barbiturates Screen (Negative) U Tricyclic Antidepress (Negative) Ur Phencyclidine Scrn (Negative) Ur Amphetamines Screen (Negative) U Methamphetamines Scrn (Negative) Ur MDMA Scrn (Ecstasy) (Negative) U Benzodiazepines Scrn (Negative) Urine Cocaine Screen (Negative) U Marijuana (THC) Screen (Negative) Ethyl Alcohol ( - 10) mg/dL Urine Dip Bedside Urine Glucose 100 mg/dl Bedside Urine Bilirubin - Negative Bedside Urine Ketone - Negative Urine Specific [place] 1.020 Bedside Urine Occult Blood - Negative Bedside Urine pH 6.0 Bedside Urine Protein - Negative Bedside Urine Urobilinogen - Negative Bedside Urine Nitrite - Negative Bedside Urine Leukocytes - Negative Esterase MDM Narrative Medical decision making narrative: 45-year-old male PMH bipolar complaining of an episode abnormal behavior, gradually worsening paranoia symptoms, and now resolved SI. Exam unremarkable. Patient underwent medical cleared for social worker school evaluation. Patient denies SI, HI, or AVH at the time of evaluation and was given options for disposition to home with close outpatient follow-up for medication management for inpatient for medication management. Patient ultimately felt safe and went home with at bedside for close outpatient follow-up which was setup by social Work. Return to ER precautions discussed and all questions were answered. <Aury Marta Merida, DO - Last Filed: 04/27/21 21:19> Lab Data Labs: Lab Results 04/27/21 04/27/21 04/27/21 Range/Units 10:36 11:02 11:02 WBC 5.3 (4.5-11.0) X10^3/uL RBC 4.43 L (4.5-5.9) X10^6/uL Hgb 13.6 (13.5-17.5) g/dL Hct 39.1 L (41-53) % MCV 88.2 (80-100) fL MCH 30.7 (26-34) PG MCHC 34.8 (30-36) % RDW 14.5 (11.6-14.8) % Plt Count 193 (150-400) X10^3/uL Neut % (Auto) 61.9 (50-75) % Lymph % (Auto) 26.7 (25-40) % [place] % (Auto) 9.2 (3-14) % Eos % (Auto) 1.2 L (2-4) % Baso % (Auto) 1.0 (0-2) % Neut # (Auto) 3300 (9694-5431) /uL Lymph # (Auto) 1400 (4886-6452) /uL [place] # (Auto) 500 (0-900) /uL Eos # (Auto) 100 (0-450) /uL Baso # (Auto) 100 (0-100) /uL Sodium 140 (137-145) mmol/L Potassium 4.4 (3.4-5.1) mmol/L Chloride 101 (98-107) mmol/L Carbon Dioxide 32 (22-32) mmol/L BUN 16 (9-20) mg/dL Creatinine 0.86 (0.66-1.25) mg/dL Estimated GFR > 60.0 (>60) mL/min BUN/Creatinine Ratio 18.6 (6-22) Glucose 169 H (70-100) mg/dL Calcium 9.4 (8.4-10.2) mg/dL Total Bilirubin 0.3 (0.2-1.3) mg/dL AST 17 (17-59) IU/L ALT 14 (<50) IU/L Alkaline Phosphatase 78 (38-126) U/L Total Protein 7.1 (6.3-8.2) g/dL Albumin 4.0 (3.5-5.0) g/dL Globulin 3.1 (1.7-4.1) g/dL Albumin/Globulin Ratio 1.3 (1.0-2.8) TSH (0.47-4.68) uIU/mL Salicylates < 1.0 (<20) mg/dL U Opiates 300ng/mL cut Negative (Negative) Ur Oxycodone Screen Negative (Negative) Urine Methadone Screen Negative (Negative) Acetaminophen < 10 L (10-30) ug/mL Ur Barbiturates Screen Negative (Negative) U Tricyclic Antidepress Negative (Negative) Ur Phencyclidine Scrn Negative (Negative) Ur Amphetamines Screen Negative (Negative) U Methamphetamines Scrn Negative (Negative) Ur MDMA Scrn (Ecstasy) Negative (Negative) U Benzodiazepines Scrn Negative (Negative) Urine Cocaine Screen Negative (Negative) U Marijuana (THC) Screen Positive H (Negative) Ethyl Alcohol < 10 ( - 10) mg/dL 04/27/21 Range/Units 11:02 WBC (4.5-11.0) X10^3/uL RBC (4.5-5.9) X10^6/uL Hgb (13.5-17.5) g/dL Hct (41-53) % MCV (80-100) fL MCH (26-34) PG MCHC (30-36) % RDW (11.6-14.8) % Plt Count (150-400) X10^3/uL Neut % (Auto) (50-75) % Lymph % (Auto) (25-40) % [place] % (Auto) (3-14) % Eos % (Auto) (2-4) % Baso % (Auto) (0-2) % Neut # (Auto) (1554-1436) /uL Lymph # (Auto) (0191-0457) /uL [place] # (Auto) (0-900) /uL Eos # (Auto) (0-450) /uL Baso # (Auto) (0-100) /uL Sodium (137-145) mmol/L Potassium (3.4-5.1) mmol/L Chloride (98-107) mmol/L Carbon Dioxide (22-32) mmol/L BUN (9-20) mg/dL Creatinine (0.66-1.25) mg/dL Estimated GFR (>60) mL/min BUN/Creatinine Ratio (6-22) Glucose (70-100) mg/dL Calcium (8.4-10.2) mg/dL Total Bilirubin (0.2-1.3) mg/dL AST (17-59) IU/L ALT (<50) IU/L Alkaline Phosphatase (38-126) U/L Total Protein (6.3-8.2) g/dL Albumin (3.5-5.0) g/dL Globulin (1.7-4.1) g/dL Albumin/Globulin Ratio (1.0-2.8) TSH 0.56 (0.47-4.68) uIU/mL Salicylates (<20) mg/dL U Opiates 300ng/mL cut (Negative) Ur Oxycodone Screen (Negative) Urine Methadone Screen (Negative) Acetaminophen (10-30) ug/mL Ur Barbiturates Screen (Negative) U Tricyclic Antidepress (Negative) Ur Phencyclidine Scrn (Negative) Ur Amphetamines Screen (Negative) U Methamphetamines Scrn (Negative) Ur MDMA Scrn (Ecstasy) (Negative) U Benzodiazepines Scrn (Negative) Urine Cocaine Screen (Negative) U Marijuana (THC) Screen (Negative) Ethyl Alcohol ( - 10) mg/dL Urine Dip Bedside Urine Glucose 100 mg/dl Bedside Urine Bilirubin - Negative Bedside Urine Ketone - Negative Urine Specific [place] 1.020 Bedside Urine Occult Blood - Negative Bedside Urine pH 6.0 Bedside Urine Protein - Negative Bedside Urine Urobilinogen - Negative Bedside Urine Nitrite - Negative Bedside Urine Leukocytes - Negative Esterase Discharge Plan Departure Patient Disposition: Home Clinical Impression: Abnormal behavior, Suicidal ideation Instructions: DI for Bipolar Disorder, DI for Suicidal Ideation-Adult Activity Restrictions/Additional Instructions: *You have been diagnosed with [now resolved suicidal ideation, paranoia] *What to do: [ ] New medication prescriptions sent to your pharmacy: [ ] [ ] New medication written as a paper prescription [X ] No new medications given * Please follow-up with your primary care provider in 2-3 days, call for an appointment. Social work is setting up a very close outpatient appointment with your psychiatrist and counselor. Let them know you were seen in the emergency department and that we ask you to be seen in follow-up. * if you do not have a primary care provider, please contact the [facility] Resource line at [phone]. They will ask some questions about your medical history and help to get up with a doctor in the community. * Return to the if you should have any new, worsening, or concerning symptoms, such as [thoughts of hurting herself, others, or worsened abnormal behaviors]. Prescriptions: No Action aspirin 81 MG tablet,delayed release (DR/EC) 81 mg PO QDAY Qty: 30 RF: 0 allopurinol 100 mg tablet 100 mg PO Q DAY Qty: 90 RF: 3 buspirone 30 mg tablet 30 mg PO BID Qty: 180 RF: 3 digoxin 125 mcg (0.125 mg) tablet 125 mcg PO DAILY Qty: 90 RF: 1 losartan [Cozaar] 50 mg tablet 50 mg PO BID Qty: 180 RF: 3 potassium chloride 10 mEq tablet extended release 10 meq PO DAILY Qty: 90 RF: 1 torsemide 20 mg tablet 20 mg PO Q DAY Qty: 90 RF: 1 metoprolol succinate 100 mg tablet extended release 24 hr See Rx Instructions PO DAILY Qty: 270 RF: 1 glipizide 10 mg tablet 10 mg PO BID Qty: 180 RF: 1 atorvastatin 80 mg tablet 80 mg PO DAILY RF: 0 Entresto 49-51 mg tablet 1 tab PO BID RF: 0 divalproex 500 mg tablet,delayed release (DR/EC) 500 mg PO TID Qty: 90 RF: 0 magnesium chloride 64 mg tablet,delayed release (DR/EC) 64 mg PO DAILY Qty: 30 RF: 0 amantadine HCl 100 mg capsule 100 mg PO BID Qty: 60 RF: 0 metformin 1,000 mg tablet 1,000 mg PO BIDCC Qty: 60 RF: 0 Combivent Respimat 20-100 mcg/actuation Mist 2 puff INH RTBID Qty: 1 RF: 0 <Aury Merida, DO - Last Filed: 04/27/21 21:19> Cosign ED Attending Beeature Attestation: I was immediately available in the department for consultation. Documentation has been reviewed.
[2021-04-27 14:19] VITALS: BP 131/71; PULSE 64; RESP 20; O2SAT 100
--- NOTE | 2021-04-27 15:10 | CM.SWNOTE ---
PAYROLL AND BENEFITS MANAGER Assessment PAYROLL AND BENEFITS MANAGER - Jewel Oliving Machine Operator Assessment PAYROLL AND BENEFITS MANAGER/Jewel Oliving Machine Operator Assessment Time Spent with Patient Start date 04/27/21 Visit Start Time 13:05 End date 04/27/21 Visit End Time 13:55 Total time Care Management spent on 50 patient visit-in minutes Mental Health Screening Include Onset, Duration, Intensity Presenting Problem Patient presents to this ED with after grabbing knife with intent to harm self, patient endorses increased paranoia and anxiety over the last few weeks Precipitating Event(s) Patient endorses he forgot to take his medication and that he believes his Vraylar medication is not working and making things worse. Patient endorses this medication is prescribed by his pscyhiatrist and he is given samples due to the rx not covered by insurance. Patient Strengths Patient shows insight Current Behavioral Health Provider(s) Patient sees therapist Irma Lake, Provider, Ph. # [facility] Case (ph. # [phone]) 2-4 times a month. Patient sees Psychiatrist Dr. Kingsley Bonilla [facility] (ph. # [phone]) every few months, patient endorses last session was in February 2021 and next session is 05/04/21. Psych. Hx Mental Health and Chemical Patient has hx of Bipolar, Dependency ADHD, PTSD, Anxiety and Depression. Patient endorses that he currently uses medically prescribed THC. Patient endorses no current use of any other substances or ETOH. 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 Patient endorses having 19 rx due to MH dx, cardiology dx and diabetes dx. Patient did not list all medications but mentioned Vraylar, Sunosi and bupropion. Family Hx of Behavioral Abuse None reported Psychiatric Hospitalizations (date(s)/ Patient endorses that he has location) been to several inpatient behavioral health hospitals for inpatient but did not endorse dates and locations. Psychosocial information & Support Patient is 45 y/o male who Systems resides with in [place], [place]. Both and patient endorse supportive friends and family. School/Work Patient is not currently working and stopped working in 2001. 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 Legal Concerns Legal Matters - Outstanding Issues None reported Mental Status Orientation (Person/Place/Time) A/Ox4 Stated Mood Anxious Affect (Congruent with Mood?) Euthymic, full range, congruent with mood Thought Content - Specify/Describe Patient endorses increased Obsessions, Delusions, Hallucinations paranoia, thoughts of looking over shoulder and thinking people are against him. Patient denies delusions and hallucinations. Thought Processes (Kbngpws-Nbzlxlrs-Qdwy Circumstantial Yjognfpf-Vauayduh-Qlefpbrocc- Gpffgepycvuexr-Tinjxpf-Ofnfgydaepvd- Thought Blocking) Speech (Sgfddl-Ejzx-Udplsdu-Rapid-Soft- Rapid Loud-Pressured) Motor (Ylytkm-Fddblvmag-Mgpb-Other) Normal/Excessive, patient standing when wanting to d/c after meeting with PAYROLL AND BENEFITS MANAGER Insight (Fkmz-Ksww-Juiu/Limited) Fair/limited Judgement (Gpuu-Kqks-Fzps/Limited) Fair/limited Impulse Control (Adequate-Impaired) adequate during assessment Memory (Oupzjjbsn-Qezkag-Ortplj, intact, not formally assessed Impaired-Intact) Concentration (Intact-Impaired) intact, patient endorses he knows he gets off track. Attention (Intact-Impaired) intact Behavior (Appropriate-Inappropriate) appropriate Risk Assessment Suicidal Ideation (Plan) No Homicidal Ideation (Plan) No Comment Patient denies HI. Patient endorses today he was focused on grabbing a knife with intent to hurt himself and approached and did not proceed with harming self. Patient denies current SI or self harm. Patient endorses he feels like fixing the problem Patient endorse hx of suicide attempt in 1998 when he overdosed on pills and afterwards decided he did not want to and did not want his family to find him, patient endorsed wanting the pain to go away. Patient endorses punching wall and cutting self a few years ago. Patient endorses that he would get tattoos for artistic method to feel pain but endorses stopping tattoos due to his heart condition 5 years ago. Intervention Intervention PAYROLL AND BENEFITS MANAGER meets with patient and patient's . Patient endorses he prefers is present to ensure that he does not miss anything. Patient endorses hx of MH dx, hx of SI, SA and self harm. Patient endorses increasing paranoia, and anxiety, and eagle behavior. Patient endorses that he is concerned is current medication is making it worse and it is not covered by his insurance. expresses concern for patient's eagle behavior and patient holding knife this morning was alarming to . Patient endorses no current SI or intent to harm self. Patient endorses that he has an appt scheduled with his psychiatrist next week. Patient provides consent for PAYROLL AND BENEFITS MANAGER to contact patient's pscyhiatrist and therapist. PAYROLL AND BENEFITS MANAGER discusses safety planning with patient and and the option of voluntary inpatient behavioral health hospitalization. PAYROLL AND BENEFITS MANAGER provides time for and patient to discuss patient's options. Patient endorses he does not want to seek inpatient treatment. PAYROLL AND BENEFITS MANAGER discusses safety planning with patient and and locking or hiding patient's access to knifes and closely monitoring patient, indicates understanding. It is the opinion of this PAYROLL AND BENEFITS MANAGER that patient is safe to d/c home with safety monitoring. It is the opinion of this PAYROLL AND BENEFITS MANAGER that patient would benefit from voluntary inpatient behavioral health inpatient hospitalization for stabilization and medication management, but patient does not endorse this plan and is not a current harm to himself or others at this time. PAYROLL AND BENEFITS MANAGER contacts patient's psychiatrist and counselor at this time with patient's consent regarding patient's encounter to this ED for outpatient follow up. PAYROLL AND BENEFITS MANAGER reviews the above with ED provider RACHELLE Salcedo who indicates agreement and understanding. Plan RA Plan Patient to d/c home when medically clear with safety monitoring from and family and f/u with outpatient providers. ELENA Verdni
== END 2021-04-27 14:19 | disposition home or self-care (01) ==
PROVIDERS: Emergency Medicine; Emergency Provider Physician Assistant
DX: R45.851 Suicidal ideations (principal); F31.9 Bipolar disorder, unspecified
CPT/HCPCS: 80053; 80305; 80320; 80329; 81003; 84443; 85025; 99283; G0480

== ENCOUNTER → 2022-01-22 13:34 | Outpatient (CLI) | payer OTHER, SELFPAY ==
[2020-01-07 01:55] VITALS: BMI 38.2
[2022-01-22 14:35] LABS: BUN Creatinine Ratio 17.6 (6-22); Blood Urea Nitrogen 16 mg/dL (9-20); Calcium 8.3 mg/dL (8.4-10.2); Carbon Dioxide 28 mmol/L (22-32); Chloride 98 mmol/L (98-107); Estimated Glomerular Filt Rate > 60.0 mL/min (>60); Glucose 300 mg/dL (70-100); HEMOLYSIS < 15 (0-50); Potassium 4.3 mmol/L (3.4-5.1); Sodium 136 mmol/L (137-145)
[2022-01-22 14:42] LABS: Digoxin 0.5 ng/mL (0.8-2.0)
== END ==
PROVIDERS: Referring Provider Internal Medicine; Visit Provider Internal Medicine
DX: I42.9 Cardiomyopathy, unspecified (principal)
CPT/HCPCS: 36415; 80048; 80162

== ENCOUNTER → 2022-09-22 10:06 | Outpatient (CLI) | payer OTHER, SELFPAY ==
[2020-01-07 01:55] VITALS: BMI 38.2
--- NOTE | 2022-09-22 10:13 | DI.RAD.S_ITS ---
PROCEDURE: XR SHOULDER RT MIN 2V INDICATIONS: RIGHT SHOULDER PAIN TECHNIQUE: 3 views of the shoulder were acquired. COMPARISON: [facility], CR, XR CHEST 1 VIEW, 01/14/2020, 10:56. [facility], CR, SHOULDER MINIMUM 2VIEW RIGHT, 01/12/2017, 11:41. FINDINGS: Bones: No fractures or dislocations. No suspicious bony lesions. Visualized ribs appear intact. Soft tissues: No suspicious soft tissue calcifications. An AICD lead is partially seen. The visualized lung demonstrates an unremarkable appearance. IMPRESSION: No significant shoulder plain film abnormality is seen. If not contraindicated by the patient's AICD, please consider a follow-up shoulder MRI for further evaluation. Dictated by: Murray Hernandez M.D. on 09/22/2022 at 9:46 Approved by: Murray Hernandez M.D. on 09/22/2022 at 9:47
== END ==
PROVIDERS: PCP Internal Medicine; Referring Provider Internal Medicine; Visit Provider Internal Medicine
DX: M25.511 Pain in right shoulder (principal)
CPT/HCPCS: 73030

== ENCOUNTER 2023-03-22 08:11 | Emergency (ER) | payer OTHER, SELFPAY ==
[2020-01-07 01:55] VITALS: BMI 38.2
[2023-03-22] VITALS (8 sets, daily range): BP systolic 127–145; BP diastolic 66–91; PULSE 55–65; RESP 17–22; TEMP 36.6; O2SAT 95–99; BMI 35.1
--- NOTE | 2023-03-22 08:22 | ED.SOB ---
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 Patient presents with a week of shortness of breath, cough with productive foamy sputum. Patient denies fevers has had some chills. He notes some nasal congestion. Family inpatient note this seemed to start after he helped clean out a storage room that had been sitting for about 6 years with a lot of dust. They state typically he will have a day or 2 where he feels much worse after that sort of exertion and then will start to improve but he has not. He denies chest pain or pressure. He states that there is a film on his heart. He does feel short of breath he states it is all the time he does not really appreciate if it is worse with exertion or rest. It has not been improving. Denies any orthopnea. Typically does have some nausea and vomiting most days and this has not changed. No diarrhea, constipation, no black or bloody stools. He is had normal urine output. No new swelling in extremities. Patient and family at bedside note that he does not normally have swelling in his legs it is usually in his torso. Patient notes some dizziness as well he feels like things in his vision or spinning. Patient has not had any new medication changes. He saw his position classification specialist Dr. Espinosa yesterday. Patient and family state his bipolar symptoms have been fairly well controlled. He is not taken his a.m. medications he is not due till 9:30 a.m.. No tobacco, no alcohol, no illicit. No new surgeries or interventions. He is supposed to have procedure for frozen shoulder next week. Patient is currently in between primary care physicians as his doctor Sidney has left the area. Related Data Home Medications Medication Instructions Recorded Confirmed aspirin 81 mg tablet,delayed 81 mg PO QDAY #30 tabs 08/20/16 01/07/20 release atorvastatin 80 mg tablet 80 mg PO DAILY 10/28/19 01/07/20 sacubitril 49 mg-valsartan 51 mg 1 tab PO BID 02/24/20 tablet (Entresto) Previous Rx's Medication Instructions Recorded allopurinol 100 mg tablet 100 mg PO Q DAY #90 tabs 09/05/19 buspirone 30 mg tablet 30 mg PO BID #180 tabs 09/05/19 digoxin 125 mcg (0.125 mg) tablet 125 mcg PO DAILY #90 tabs 09/05/19 losartan 50 mg tablet (Cozaar) 50 mg PO BID #180 tabs 09/05/19 potassium chloride 10 mEq 10 meq PO DAILY #90 tabs 09/05/19 tablet,extended release torsemide 20 mg tablet 20 mg PO Q DAY #90 tabs 09/05/19 metoprolol succinate 100 mg See Rx Instructions PO DAILY #270 09/07/19 tablet,extended release 24 hr tabs glipizide 10 mg tablet 10 mg PO BID #180 tabs 10/18/19 ipratropium 20 mcg-albuterol 100 2 puff INH RTBID #1 g 01/09/20 mcg/actuation mist for inhalation (Combivent Respimat) amantadine HCl 100 mg capsule 100 mg PO BID #60 caps 01/23/21 divalproex 500 mg tablet,delayed 500 mg PO TID #90 tabs 01/23/21 release magnesium chloride 64 mg 64 mg PO DAILY #30 tabs 01/23/21 (magnesium chloride) tablet,delayed release metformin 1,000 mg tablet 1,000 mg PO BIDCC #60 tabs 01/23/21 Allergies Allergy/AdvReac Type Severity Reaction Status Date / Time paliperidone [From INVEGA] Allergy Severe LOSS OF Verified 03/22/23 08:23 SPEECH AND MOTOR CONTROL NSAIDS (Non-Steroidal AdvReac Unknown STATES Verified 03/22/23 08:23 Anti-Inflamma INTERACTS [NSAIDS (NON-STEROIDAL WITH HOME ANTI-INFLAMMA] MEDS Review of Systems Review of Systems ROS Unobtainable: All systems reviewed & are unremarkable except as noted in HPI and below Patient History Medical History (Updated 03/22/23 @ 10:02 by Aury Merida DO) Drug-induced cardiomyopathy (2015) Obstructive sleep apnea hypopnea, severe Social History marital status: household members: spouse education level: college occupational status: disabled Smoking Status: Former smoker alcohol intake: former substance use type: does not use Smoking Status: Former smoker alcohol intake frequency: 0-2 drinks per day Substance Use Type: marijuana Exam Narrative Exam Narrative: GEN: Obese male, alert and oriented x 3, patient appears to be in mild distress. HEENT: Atraumatic, pupils are equal round reactive to light, extraocular movements are intact, nares are clear, TMs are clear with no fluid, there is no conjunctival pallor. Throat is clear without any exudates, erythema, tonsillar enlargement or uvular deviation HEART: Regular rate and rhythm without murmur, clicks, rubs. pulses are equal in upper and lower extremities LUNGS:Lungs clear to auscultation, no wheezes, rales, crackles, chest moves symmetrically, no tachypnea, no crackles or accessory muscle use. ABD:bowel sounds normal, soft, non-tender, no guarding, rebound, rigidity, no masses noted, no hepatosplenomegaly :No CVA tenderness MSCL: Non-tender, no muscle atrophy, muscles strength 5/5 upper and lower extremities, full range of motion, normal gait NEURO:CN 2-12 intact, sensation normal. SKIN: No rash, erythema or other skin changes. Initial Vital Signs Initial Vital Signs: Vital Signs Pulse Rate 60 03/22/23 08:18 Blood Pressure 145/91 H 03/22/23 08:18 Pulse Oximetry 99 03/22/23 08:18 Course Orders Ordered: ED Orders 03/22/23 10:45 Trop I [Troponin I] Stat EKG-12 Lead Stat Vital Signs Vital signs: Vital Signs - 8 hr 03/22/23 12:00 Pulse Rate 65 Blood Pressure 128/66 Pulse Oximetry 96 Oxygen Delivery Method Room Air MDM - SOB/Dyspnea Lab Data 03/22/23 08:30 03/22/23 08:30 Labs: Lab Results 03/22/23 03/22/23 03/22/23 Range/Units 08:30 08:30 08:30 WBC 4.9 (4.5-11.0) X10^3/uL RBC 5.04 (4.5-5.9) X10^6/uL Hgb 15.4 (13.5-17.5) g/dL Hct 43.7 (41-53) % MCV 86.7 (80-100) fL MCH 30.5 (26-34) PG MCHC 35.2 (30-36) % RDW 13.2 (11.6-14.8) % Plt Count 147 L (150-400) X10^3/uL Neut % (Auto) 76.9 H (50-75) % Lymph % (Auto) 17.4 L (25-40) % [place] % (Auto) 5.0 (3-14) % Eos % (Auto) 0.2 L (2-4) % Baso % (Auto) 0.5 (0-2) % Neut # (Auto) 3800 (9055-3363) /uL Lymph # (Auto) 900 L (3176-9358) /uL [place] # (Auto) 200 (0-900) /uL Eos # (Auto) 0 (0-450) /uL Baso # (Auto) 0 (0-100) /uL PT 11.3 (10.1-12.7) SECONDS INR 1.0 (0.9-1.3) APTT 27 (26-36) SECONDS Sodium 133 L (137-145) mmol/L Potassium 5.1 (3.4-5.1) mmol/L Chloride 91 L (98-107) mmol/L Carbon Dioxide 32 (22-32) mmol/L BUN 31 H (9-20) mg/dL Creatinine 1.15 (0.66-1.25) mg/dL Estimated GFR > 60 (>60) mL/min BUN/Creatinine Ratio 27.0 H (6-22) Glucose 394 H (70-100) mg/dL Calcium 8.6 (8.4-10.2) mg/dL Total Bilirubin 0.4 (0.2-1.3) mg/dL AST 21 (17-59) IU/L ALT 19 (<50) IU/L Alkaline Phosphatase 114 (38-126) U/L Total Creatine Kinase 41 L (55-170) U/L CK-MB (CK-2) TNP CK-MB (CK-2) Rel Index TNP Troponin I < 0.012 (0.01-0.034) ng/mL NT-Pro-B Natriuret Pep (<125) pg/mL Total Protein 7.5 (6.3-8.2) g/dL Albumin 4.3 (3.5-5.0) g/dL Globulin 3.2 (1.7-4.1) g/dL Albumin/Globulin Ratio 1.3 (1.0-2.8) Lipase 67 (23-300) U/L U Opiates 300ng/mL cut (Negative) Ur Oxycodone Screen (Negative) Urine Methadone Screen (Negative) Ur Barbiturates Screen (Negative) U Tricyclic Antidepress (Negative) Ur Phencyclidine Scrn (Negative) Ur Amphetamines Screen (Negative) U Methamphetamines Scrn (Negative) Ur MDMA Scrn (Ecstasy) (Negative) U Benzodiazepines Scrn (Negative) Urine Cocaine Screen (Negative) U Marijuana (THC) Screen (Negative) Chlamy pneumoniae PCR (Not Detect) Adenovirus (PCR) (Not Detect) B. pertussis DNA (PCR) (Not Detecte) B.parapertussis DNA PCR (Not Detecte) Coronavirus OC43 (PCR) (Not Detect) Coronavirus HKU1 (PCR) (Not Detect) Coronavirus 229E (PCR) (Not Detect) SARS-CoV-2 (PCR) (Not Detecte) Coronavirus NL63 (PCR) (Not Detect) Human Metapneumovir PCR (Not Detect) Influenza Type A (PCR) (Not Detect) Influenza Type B (PCR) (Not Detect) M. pneumoniae (PCR) (Not Detect) Parainfluenza 1 (PCR) (Not Detect) Parainfluenza 2 (PCR) (Not Detect) Parainfluenza 3 (PCR) (Not Detect) Parainfluenza 4 (PCR) (Not Detect) RSV (PCR) (Not Detect) Entero/Rhino (PCR) (Not Detect) 03/22/23 03/22/23 03/22/23 Range/Units 08:30 08:30 09:33 WBC (4.5-11.0) X10^3/uL RBC (4.5-5.9) X10^6/uL Hgb (13.5-17.5) g/dL Hct (41-53) % MCV (80-100) fL MCH (26-34) PG MCHC (30-36) % RDW (11.6-14.8) % Plt Count (150-400) X10^3/uL Neut % (Auto) (50-75) % Lymph % (Auto) (25-40) % [place] % (Auto) (3-14) % Eos % (Auto) (2-4) % Baso % (Auto) (0-2) % Neut # (Auto) (9988-4060) /uL Lymph # (Auto) (9640-7386) /uL [place] # (Auto) (0-900) /uL Eos # (Auto) (0-450) /uL Baso # (Auto) (0-100) /uL PT (10.1-12.7) SECONDS INR (0.9-1.3) APTT (26-36) SECONDS Sodium (137-145) mmol/L Potassium (3.4-5.1) mmol/L Chloride (98-107) mmol/L Carbon Dioxide (22-32) mmol/L BUN (9-20) mg/dL Creatinine (0.66-1.25) mg/dL Estimated GFR (>60) mL/min BUN/Creatinine Ratio (6-22) Glucose (70-100) mg/dL Calcium (8.4-10.2) mg/dL Total Bilirubin (0.2-1.3) mg/dL AST (17-59) IU/L ALT (<50) IU/L Alkaline Phosphatase (38-126) U/L Total Creatine Kinase (55-170) U/L CK-MB (CK-2) CK-MB (CK-2) Rel Index Troponin I (0.01-0.034) ng/mL NT-Pro-B Natriuret Pep 240 H (<125) pg/mL Total Protein (6.3-8.2) g/dL Albumin (3.5-5.0) g/dL Globulin (1.7-4.1) g/dL Albumin/Globulin Ratio (1.0-2.8) Lipase (23-300) U/L U Opiates 300ng/mL cut Negative (Negative) Ur Oxycodone Screen Negative (Negative) Urine Methadone Screen Negative (Negative) Ur Barbiturates Screen Negative (Negative) U Tricyclic Antidepress Negative (Negative) Ur Phencyclidine Scrn Negative (Negative) Ur Amphetamines Screen Negative (Negative) U Methamphetamines Scrn Negative (Negative) Ur MDMA Scrn (Ecstasy) Negative (Negative) U Benzodiazepines Scrn Negative (Negative) Urine Cocaine Screen Negative (Negative) U Marijuana (THC) Screen Positive H (Negative) Chlamy pneumoniae PCR Not detected (Not Detect) Adenovirus (PCR) Not detected (Not Detect) B. pertussis DNA (PCR) Not detected (Not Detecte) B.parapertussis DNA PCR Not detected (Not Detecte) Coronavirus OC43 (PCR) Not detected (Not Detect) Coronavirus HKU1 (PCR) Not detected (Not Detect) Coronavirus 229E (PCR) Not detected (Not Detect) SARS-CoV-2 (PCR) Detected H (Not Detecte) Coronavirus NL63 (PCR) Not detected (Not Detect) Human Metapneumovir PCR Not detected (Not Detect) Influenza Type A (PCR) Not detected (Not Detect) Influenza Type B (PCR) Not detected (Not Detect) M. pneumoniae (PCR) Not detected (Not Detect) Parainfluenza 1 (PCR) Not detected (Not Detect) Parainfluenza 2 (PCR) Not detected (Not Detect) Parainfluenza 3 (PCR) Not detected (Not Detect) Parainfluenza 4 (PCR) Not detected (Not Detect) RSV (PCR) Not detected (Not Detect) Entero/Rhino (PCR) Not detected (Not Detect) 03/22/23 Range/Units 10:45 WBC (4.5-11.0) X10^3/uL RBC (4.5-5.9) X10^6/uL Hgb (13.5-17.5) g/dL Hct (41-53) % MCV (80-100) fL MCH (26-34) PG MCHC (30-36) % RDW (11.6-14.8) % Plt Count (150-400) X10^3/uL Neut % (Auto) (50-75) % Lymph % (Auto) (25-40) % [place] % (Auto) (3-14) % Eos % (Auto) (2-4) % Baso % (Auto) (0-2) % Neut # (Auto) (9827-8047) /uL Lymph # (Auto) (5027-2013) /uL [place] # (Auto) (0-900) /uL Eos # (Auto) (0-450) /uL Baso # (Auto) (0-100) /uL PT (10.1-12.7) SECONDS INR (0.9-1.3) APTT (26-36) SECONDS Sodium (137-145) mmol/L Potassium (3.4-5.1) mmol/L Chloride (98-107) mmol/L Carbon Dioxide (22-32) mmol/L BUN (9-20) mg/dL Creatinine (0.66-1.25) mg/dL Estimated GFR (>60) mL/min BUN/Creatinine Ratio (6-22) Glucose (70-100) mg/dL Calcium (8.4-10.2) mg/dL Total Bilirubin (0.2-1.3) mg/dL AST (17-59) IU/L ALT (<50) IU/L Alkaline Phosphatase (38-126) U/L Total Creatine Kinase (55-170) U/L CK-MB (CK-2) CK-MB (CK-2) Rel Index Troponin I < 0.012 (0.01-0.034) ng/mL NT-Pro-B Natriuret Pep (<125) pg/mL Total Protein (6.3-8.2) g/dL Albumin (3.5-5.0) g/dL Globulin (1.7-4.1) g/dL Albumin/Globulin Ratio (1.0-2.8) Lipase (23-300) U/L U Opiates 300ng/mL cut (Negative) Ur Oxycodone Screen (Negative) Urine Methadone Screen (Negative) Ur Barbiturates Screen (Negative) U Tricyclic Antidepress (Negative) Ur Phencyclidine Scrn (Negative) Ur Amphetamines Screen (Negative) U Methamphetamines Scrn (Negative) Ur MDMA Scrn (Ecstasy) (Negative) U Benzodiazepines Scrn (Negative) Urine Cocaine Screen (Negative) U Marijuana (THC) Screen (Negative) Chlamy pneumoniae PCR (Not Detect) Adenovirus (PCR) (Not Detect) B. pertussis DNA (PCR) (Not Detecte) B.parapertussis DNA PCR (Not Detecte) Coronavirus OC43 (PCR) (Not Detect) Coronavirus HKU1 (PCR) (Not Detect) Coronavirus 229E (PCR) (Not Detect) SARS-CoV-2 (PCR) (Not Detecte) Coronavirus NL63 (PCR) (Not Detect) Human Metapneumovir PCR (Not Detect) Influenza Type A (PCR) (Not Detect) Influenza Type B (PCR) (Not Detect) M. pneumoniae (PCR) (Not Detect) Parainfluenza 1 (PCR) (Not Detect) Parainfluenza 2 (PCR) (Not Detect) Parainfluenza 3 (PCR) (Not Detect) Parainfluenza 4 (PCR) (Not Detect) RSV (PCR) (Not Detect) Entero/Rhino (PCR) (Not Detect) Imaging Data Chest x-ray: Radiologist's Impression: [address] [address] XRay Report Signed Patient: Himanshu Nguyễn Jr MR#: [id number] : 1975 Acct:[id number] Age/Sex: 47 / M Date of Service: 03/22/23 Loc: ED Accession Number: [id number] ?? Procedure: XR chest 1V Ordering Provider: Aury Merida D.O. PROCEDURE:? XR CHEST 1V ? INDICATIONS:? sob, cough, hx cardiomyopathy ? TECHNIQUE:? One view of the chest was acquired.? ? COMPARISON:? [facility], CR, XR CHEST 1V, 10/31/2020, 16:31. ? FINDINGS:? ? Surgical changes and devices:? Pacemaker ? Lungs and pleura:? Lungs are clear.? No pleural effusions or pneumothorax.? ? Mediastinum:? Mediastinal contours appear normal.? Heart size is normal.? ? Bones and chest wall:? No suspicious bony lesions.? Overlying soft tissues appear unremarkable.? ? IMPRESSION:? No evidence acute pulmonary process. ? ? ? Dictated by: Vin Perez M.D. on 03/22/2023 at 9:24 ? ? Approved by: Vin Perez M.D. on 03/22/2023 at 9:24?? ECG Data Attestation: I personally reviewed and interpreted this ECG as follows: Prior ECG tracings: available for review Interpretation: Sinus bradycardia rate of 50 6p are 180 QRS of [address]TC [address] No acute ST elevation or depression. Sinus bradycardia rate of 50 6p are 236, QRS of 134 QTC of 418. Left bundle-branch. Patient's EKG appears similar to prior. MDM Narrative Medical decision making narrative: This is a 47-year-old male comes with complaint of shortness of breath, persistent cough which he describes with some foamy productive sputum. They note over the weekend he had help clean out a storage container or room that had a lot of stuff from the past 6 years lot of dust. They state this type of exertional often kind of where him out but he improves after a day or 2 and has not been improving. Patient isn't describing lot of pain but does feel short of breath, seems to be constant and persistent. He is had some foamy productive sputum. Patient's chest x-ray is negative, EKG shows sinus bradycardia with left bundle-branch block appears similar to prior from 2020. Patient does have a significant cardiac history initial troponin is negative BNP is 240, renal functions appropriate sodium is 133 with a chloride 91 BUN 31 with creatinine of 1.15. Glucose is elevated at 394 today he was 300 and Mely. Anion gap is 10. Bicarb is appropriate. My suspicion for DKA or hyperosmolar state is low. CBC shows slightly low platelets, predominance of neutrophils but normal WBC count and hemoglobin. Chest x-ray does not show any acute changes such as pneumonia, fluid overload or other changes. Family notes he is supposed to be restarting his metformin and Jardiance with Dr. Espinosa. He has been off this for some time. Patient's respiratory panel came back positive for COVID. Patient's repeat trope is negative as well, with no acute ST changes. Discussed with patient his symptoms seem most consistent with infectious. Return precautions. We discussed Paxil COVID but he has many medications with potential interaction issues and seems to be tolerating well and may be outside the window already. Patient plan for repeat troponin and EKG, if vitals are otherwise stable with no hypoxia or other changes likely plan for discharge home possibly have patient restart his diabetic medications. Discharge Plan Departure Patient Disposition: Home Clinical Impression: COVID-19 virus infection Instructions: DI for COVID-19 (Suspected or Confirmed ) Activity Restrictions/Additional Instructions: Please continue to follow up with your physician. You have tested positive for COVID today think this is the source of your symptoms. You may continue your home medications as taken. Please return for new or worsening chest pain, shortness of breath, lightheadedness, passing out, persistent vomiting, new swelling in your extremities or other new or concerning changes. Prescriptions: No Action aspirin 81 MG tablet,delayed release (DR/EC) 81 mg PO QDAY Qty: 30 allopurinol 100 mg tablet 100 mg PO Q DAY Qty: 90 3RF buspirone 30 mg tablet 30 mg PO BID Qty: 180 3RF digoxin 125 mcg (0.125 mg) tablet 125 mcg PO DAILY Qty: 90 1RF losartan [Cozaar] 50 mg tablet 50 mg PO BID Qty: 180 3RF potassium chloride 10 mEq tablet extended release 10 meq PO DAILY Qty: 90 1RF torsemide 20 mg tablet 20 mg PO Q DAY Qty: 90 1RF Rx Instructions: prn Q am metoprolol succinate 100 mg tablet extended release 24 hr See Rx Instructions PO DAILY Qty: 270 1RF Rx Instructions: 2 tabs in the morning, 1 tab in the evening PO daily; glipizide 10 mg tablet 10 mg PO BID Qty: 180 1RF Rx Instructions: 5 mg am 5 mg evening atorvastatin 80 mg tablet 80 mg PO DAILY Patient Comments: dose change from 40mg to 80mg from cardiology 10/19/19 Entresto 49-51 mg tablet 1 tab PO BID divalproex 500 mg tablet,delayed release (DR/EC) 500 mg PO TID Qty: 90 0RF Rx Instructions: At bedtime.//PT OVERDUE FOR APPT. PLEASE CALL TO SCHED. APPT FOR CONT'D FILLS. THANKS 01/23/21 magnesium chloride 64 mg tablet,delayed release (DR/EC) 64 mg PO DAILY Qty: 30 0RF Rx Instructions: PT OVERDUE FOR APPT. PLEASE CALL TO SCHED. APPT FOR CONT'D FILLS. THANKS 01/23/21 amantadine HCl 100 mg capsule 100 mg PO BID Qty: 60 0RF Rx Instructions: PT OVERDUE FOR APPT. PLEASE CALL TO SCHED. APPT FOR CONT'D FILLS. THANKS 01/23/21 metformin 1,000 mg tablet 1,000 mg PO BIDCC Qty: 60 0RF Rx Instructions: PT OVERDUE FOR APPT. PLEASE CALL TO SCHED. APPT FOR CONT'D FILLS. THANKS 01/23/21 Combivent Respimat 20-100 mcg/actuation Mist 2 puff INH RTBID Qty: 1 0RF Referrals: Eryn Espinosa MD [Primary Care Provider] - Stand Alone Forms: Patient Portal/API
--- NOTE | 2023-03-22 08:38 | DI.RAD.S_ITS ---
PROCEDURE: XR CHEST 1V INDICATIONS: sob, cough, hx cardiomyopathy TECHNIQUE: One view of the chest was acquired. COMPARISON: [facility], CR, XR CHEST 1V, 10/31/2020, 16:31. FINDINGS: Surgical changes and devices: Pacemaker Lungs and pleura: Lungs are clear. No pleural effusions or pneumothorax. Mediastinum: Mediastinal contours appear normal. Heart size is normal. Bones and chest wall: No suspicious bony lesions. Overlying soft tissues appear unremarkable. IMPRESSION: No evidence acute pulmonary process. Dictated by: Vin Perez M.D. on 03/22/2023 at 9:24 Approved by: Vin Perez M.D. on 03/22/2023 at 9:24
[2023-03-22 08:46] LABS: Add Manual Diff / Slide Review NO; Basophils Absolute Auto 0 /uL (0-100); Basophils Percent Auto 0.5 % (0-2); Eosinophils Absolute Auto 0 /uL (0-450); Eosinophils Percent Auto 0.2 % (2-4); Hematocrit 43.7 % (41-53); Hemoglobin 15.4 g/dL (13.5-17.5); Lymphocytes Absolute Auto 900 /uL (1100-4500); Lymphocytes Percent Auto 17.4 % (25-40); Mean Corpuscular HGB Conc 35.2 % (30-36); Mean Corpuscular Hemoglobin 30.5 PG (26-34); Mean Corpuscular Volume 86.7 fL (80-100); Monocytes Absolute Auto 200 /uL (0-900); Neutrophils Absolute Auto 3800 /uL (1500-7000); Neutrophils Percent Auto 76.9 % (50-75); Platelet Count 147 X10^3/uL (150-400); Red Blood Cell Count 5.04 X10^6/uL (4.5-5.9); Red Cell Distribution Width 13.2 % (11.6-14.8); White Blood Cell Count 4.9 X10^3/uL (4.5-11.0)
[2023-03-22 09:01] LABS: Alanine Aminotransferase 19 IU/L (<50); Albumin 4.3 g/dL (3.5-5.0); Albumin Globulin Ratio 1.3 (1.0-2.8); Alkaline Phosphatase 114 U/L (38-126); Aspartate Aminotransferase 21 IU/L (17-59); Bilirubin Total 0.4 mg/dL (0.2-1.3); Blood Urea Nitrogen 31 mg/dL (9-20); Calcium 8.6 mg/dL (8.4-10.2); Carbon Dioxide 32 mmol/L (22-32); Chloride 91 mmol/L (98-107); Creatine Kinase 41 U/L (55-170); Estimated Glomerular Filt Rate > 60 mL/min (>60); Globulin 3.2 g/dL (1.7-4.1); Glucose 394 mg/dL (70-100); HEMOLYSIS < 15 (0-50); Lipase 67 U/L (23-300); Potassium 5.1 mmol/L (3.4-5.1); Sodium 133 mmol/L (137-145); Total Protein 7.5 g/dL (6.3-8.2)
[2023-03-22 09:04] LABS: Prothrombin Time 11.3 SECONDS (10.1-12.7)
[2023-03-22 09:06] LABS: PTT Partial Thromboplastin Tim 27 SECONDS (26-36)
[2023-03-22 09:10] LABS: NT-proBNP (BNP-Adult 18+) 240 pg/mL (<125)
[2023-03-22 09:12] LABS: Troponin I < 0.012 ng/mL (0.01-0.034)
[2023-03-22 09:38] LABS: Adenovirus Not Detected (Not Detect); B. parapertussis Not Detected (Not Detecte); Bordetella pertussis Not Detected (Not Detecte); Chlamydophila pneumoniae Not Detected (Not Detect); Coronavirus 229E Not Detected (Not Detect); Coronavirus HKU1 Not Detected (Not Detect); Coronavirus NL 63 Not Detected (Not Detect); Coronavirus OC43 Not Detected (Not Detect); Human Metapneumovirus Not Detected (Not Detect); Human Rhinovirus/Enterovirus Not Detected (Not Detect); Influenza A Not Detected (Not Detect); Influenza B Not Detected (Not Detect); Mycoplasma pneumoniae Not Detected (Not Detect); Parainfluenza Virus 1 Not Detected (Not Detect); Parainfluenza Virus 2 Not Detected (Not Detect); Parainfluenza Virus 3 Not Detected (Not Detect); Parainfluenza Virus 4 Not Detected (Not Detect); Respiratory Syncytial Virus Not Detected (Not Detect); SARS- CoV-2 Detected (Not Detecte)
[2023-03-22 09:48] LABS: UR Morphine/Opiate cutoff 300 Negative (Negative); Ur Creatinine Normal (Normal); Ur Specific Gravity Normal (Normal); Urine Amphetamines Negative (Negative); Urine Barbiturates Negative (Negative); Urine Benzodiazepines Negative (Negative); Urine Cocaine Negative (Negative); Urine MDMA Negative (Negative); Urine Methadone Negative (Negative); Urine Methamphetamines Negative (Negative); Urine Oxycodone Negative (Negative); Urine Phencyclidine Negative (Negative); Urine Tetrahydrocannabinol Positive (Negative); Urine Tricyclic Antidepressant Negative (Negative); Urine pH Normal (Normal)
[2023-03-22 11:35] LABS: Troponin I < 0.012 ng/mL (0.01-0.034)
== END 2023-03-22 12:11 | disposition home or self-care (01) ==
PROVIDERS: Emergency Provider Emergency Medicine; PCP Internal Medicine
DX: U07.1 COVID-19 (principal); R00.1 Bradycardia, unspecified; Z79.899 Other long term (current) drug therapy
CPT/HCPCS: 36415; 71045; 80053; 80305; 82550; 83690; 83880; 84484; 85025; 85610; 85730; 87633; 93005; 93010; 99283; 99284

== ENCOUNTER → 2023-07-16 08:03 | Outpatient (CLI) | payer OTHER, SELFPAY ==
[2020-01-07 01:55] VITALS: BMI 38.2
[2023-07-16 09:51] LABS: Hemoglobin A1C% w Est Avg Glu 8.9 % (4.0-6.0)
[2023-07-16 09:58] LABS: Digoxin < 0.4 ng/mL (0.8-2.0)
[2023-07-16 10:04] LABS: Alanine Aminotransferase 17 IU/L (<50); Albumin 4.3 g/dL (3.5-5.0); Albumin Globulin Ratio 1.5 (1.0-2.8); Alkaline Phosphatase 89 U/L (38-126); Aspartate Aminotransferase 20 IU/L (17-59); Bilirubin Total 0.2 mg/dL (0.2-1.3); Blood Urea Nitrogen 27 mg/dL (9-20); Calcium 9.4 mg/dL (8.4-10.2); Carbon Dioxide 26 mmol/L (22-32); Chloride 98 mmol/L (98-107); Cholesterol 183 mg/dL (140-199); Estimated Glomerular Filt Rate > 60 mL/min (>60); Globulin 2.9 g/dL (1.7-4.1); Glucose 158 mg/dL (70-100); HDL Cholesterol 37 mg/dL (40-60); HEMOLYSIS < 15 (0-50); LDL Cholesterol Calculated 97 mg/dL (<100); Magnesium 1.7 mg/dL (1.6-2.3); Potassium 4.8 mmol/L (3.4-5.1); Sodium 136 mmol/L (137-145); Total Protein 7.2 g/dL (6.3-8.2); Triglycerides 245 mg/dL (35-150)
== END ==
PROVIDERS: PCP Internal Medicine; Referring Provider Internal Medicine; Visit Provider Internal Medicine
DX: E11.9 Type 2 diabetes mellitus without complications (principal); E83.42 Hypomagnesemia; I50.41 Acute combined systolic (congestive) and diastolic (congestive) heart failure; E78.5 Hyperlipidemia, unspecified
CPT/HCPCS: 36415; 80053; 80061; 80162; 83036; 83735

== ENCOUNTER → 2023-10-28 09:11 | Outpatient (CLI) | payer OTHER, SELFPAY ==
[2020-01-07 01:55] VITALS: BMI 38.2
[2023-10-28 10:51] LABS: Cholesterol 166 mg/dL (140-199); HDL Cholesterol 40 mg/dL (40-60); LDL Cholesterol Calculated 96 mg/dL (<100); Magnesium 1.8 mg/dL (1.6-2.3); Triglycerides 148 mg/dL (35-150)
== END ==
LOC: LAB 09:12
PROVIDERS: PCP Internal Medicine; Referring Provider Internal Medicine; Visit Provider Internal Medicine
DX: E83.42 Hypomagnesemia (principal); E78.5 Hyperlipidemia, unspecified
CPT/HCPCS: 36415; 80061; 83735

== ENCOUNTER 2024-04-02 15:07 | Emergency (ER) | payer OTHER, SELFPAY ==
[2020-01-07 01:55] VITALS: BMI 38.2
[2024-04-02] VITALS (20 sets, daily range): BP systolic 117–183; BP diastolic 64–95; PULSE 53–89; RESP 12–20; TEMP 36.9; O2SAT 94–100; BMI 33.5
--- NOTE | 2024-04-02 15:19 | EKG_ITS ---
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
--- NOTE | 2024-04-02 15:19 | DI.RAD.S_ITS ---
PROCEDURE: XR CHEST 1V INDICATIONS: chest pain TECHNIQUE: One view of the chest was acquired. COMPARISON: [facility], CR, XR CHEST 1V, 03/22/2023, 9:04. FINDINGS: Surgical changes and devices: Left cardiac pacemaker. Lungs and pleura: Patchy bibasilar opacities more pronounced on the right. No pneumothorax or substantial pleural effusion. Mediastinum: Mediastinal contours appear normal. Heart size is mildly enlarged. Bones and chest wall: No suspicious bony lesions. Overlying soft tissues appear unremarkable. IMPRESSION: Borderline cardiomegaly. Mild patchy bibasilar opacities which may represent atelectasis versus early developing airspace disease/pneumonia. Recommend follow up chest radiograph 4-6 weeks after treatment to document resolution of findings and/or return to baseline examination. Dictated by: Daniel Mckee M.D. on 04/02/2024 at 15:46 Approved by: Daniel Mkcee M.D. on 04/02/2024 at 15:48
[2024-04-02 15:46] LABS: Add Manual Diff / Slide Review NO; Basophils Absolute Auto 0 /uL (0-100); Basophils Percent Auto 0.2 % (0-2); Eosinophils Absolute Auto 0 /uL (0-450); Eosinophils Percent Auto 0.1 % (2-4); Hematocrit 49.4 % (41-53); Hemoglobin 17.2 g/dL (13.5-17.5); Lymphocytes Absolute Auto 1300 /uL (1100-4500); Lymphocytes Percent Auto 8.9 % (25-40); Mean Corpuscular HGB Conc 34.8 % (30-36); Mean Corpuscular Hemoglobin 30.2 PG (26-34); Mean Corpuscular Volume 86.8 fL (80-100); Monocytes Absolute Auto 1200 /uL (0-900); Monocytes Percent Auto 8.5 % (3-14); Neutrophils Absolute Auto 11600 /uL (1500-7000); Neutrophils Percent Auto 82.3 % (50-75); Platelet Count 281 X10^3/uL (150-400); Red Blood Cell Count 5.69 X10^6/uL (4.5-5.9); Red Cell Distribution Width 14.4 % (11.6-14.8); White Blood Cell Count 14.1 X10^3/uL (4.5-11.0)
[2024-04-02 15:55] LABS: Prothrombin Time 11.1 SECONDS (9.4-12.5)
[2024-04-02 15:57] LABS: PTT Partial Thromboplastin Tim 33 SECONDS (25.1-36.5)
[2024-04-02 16:06] LABS: Alanine Aminotransferase 49 IU/L (<50); Albumin 4.7 g/dL (3.5-5.0); Albumin Globulin Ratio 1.3 (1.0-2.8); Alkaline Phosphatase 212 U/L (38-126); Aspartate Aminotransferase 112 IU/L (17-59); BUN Creatinine Ratio 23.6 (6-22); Bilirubin Total 1.6 mg/dL (0.2-1.3); Blood Urea Nitrogen 30 mg/dL (9-20); Calcium 9.5 mg/dL (8.4-10.2); Carbon Dioxide 24 mmol/L (22-32); Chloride 96 mmol/L (98-107); Creatine Kinase 67 U/L (55-170); Estimated Glomerular Filt Rate > 60 mL/min (>60); Globulin 3.5 g/dL (1.7-4.1); Glucose 153 mg/dL (70-100); HEMOLYSIS < 15 (0-50); Lipase 98 U/L (23-300); Magnesium 1.8 mg/dL (1.6-2.3); Potassium 4.8 mmol/L (3.4-5.1); Sodium 135 mmol/L (137-145); Total Protein 8.2 g/dL (6.3-8.2)
[2024-04-02 16:18] LABS: Troponin I < 0.012 ng/mL (0.01-0.034)
[2024-04-02 17:26] LABS: NT-proBNP (BNP-Adult 18+) 4990 pg/mL (<125)
[2024-04-02 18:42] LABS: Creatine Kinase 63 U/L (55-170)
[2024-04-02 18:55] LABS: Troponin I < 0.012 ng/mL (0.01-0.034)
--- NOTE | 2024-04-02 19:22 | PC.NURSE ---
pt is a poor historian, cant tell me much about onset, associated sx. at bedside is helpful. pt is endorsing severe pain in upper right quadrant, tender on palpation
--- NOTE | 2024-04-02 19:41 | ED_ITS ---
HPI - Chest Pain General Chief Complaint: Chest Pain Stated Complaint: chest pain/SOB Time Seen by Provider: 04/02/24 17:56 Source: patient Mode of arrival: Ambulatory Limitations: no limitations History of Present Illness HPI narrative: 48-year-old male. History of heart failure. Has a an ICD in place. Yesterday started of was in his describes as chest pain and shortness of breath but upon further evaluation is more of epigastric discomfort. Also having cold chills and sweats nausea and vomiting. Discomfort has been persistent. No change in bowel habits. No urinary symptoms no prior abdominal surgeries. Has not tried anything for symptoms prior to arrival. Related Data Home Medications Medication Instructions Recorded Confirmed aspirin 81 mg tablet,delayed 81 mg PO QDAY #30 tabs 08/20/16 01/07/20 release atorvastatin 80 mg tablet 80 mg PO DAILY 10/28/19 01/07/20 sacubitril 49 mg-valsartan 51 mg 1 tab PO BID 02/24/20 tablet (Entresto) Previous Rx's Medication Instructions Recorded allopurinol 100 mg tablet 100 mg PO Q DAY #90 tabs 09/05/19 buspirone 30 mg tablet 30 mg PO BID #180 tabs 09/05/19 digoxin 125 mcg (0.125 mg) tablet 125 mcg PO DAILY #90 tabs 09/05/19 losartan 50 mg tablet (Cozaar) 50 mg PO BID #180 tabs 09/05/19 potassium chloride 10 mEq 10 meq PO DAILY #90 tabs 09/05/19 tablet,extended release torsemide 20 mg tablet 20 mg PO Q DAY #90 tabs 09/05/19 metoprolol succinate 100 mg See Rx Instructions PO DAILY #270 09/07/19 tablet,extended release 24 hr tabs glipizide 10 mg tablet 10 mg PO BID #180 tabs 10/18/19 ipratropium 20 mcg-albuterol 100 2 puff INH RTBID #1 g 01/09/20 mcg/actuation mist for inhalation (Combivent Respimat) amantadine HCl 100 mg capsule 100 mg PO BID #60 caps 01/23/21 divalproex 500 mg tablet,delayed 500 mg PO TID #90 tabs 01/23/21 release magnesium chloride 64 mg 64 mg PO DAILY #30 tabs 01/23/21 (magnesium chloride) tablet,delayed release metformin 1,000 mg tablet 1,000 mg PO BIDCC #60 tabs 01/23/21 hydrocodone 5 mg-acetaminophen 325 1 tab PO Q4-6H PRN pain #20 tabs 04/02/24 mg tablet ondansetron 4 mg disintegrating 4 mg PO Q6H PRN nausea and 04/02/24 tablet vomiting #14 tabs Allergies Allergy/AdvReac Type Severity Reaction Status Date / Time paliperidone [From INVEGA] Allergy Severe LOSS OF Verified 04/03/24 09:22 SPEECH AND MOTOR CONTROL NSAIDS (Non-Steroidal AdvReac Unknown STATES Verified 04/03/24 09:22 Anti-Inflamma INTERACTS [NSAIDS (NON-STEROIDAL WITH HOME ANTI-INFLAMMA] MEDS Review of Systems Review of Systems ROS Unobtainable: All systems reviewed & are unremarkable except as noted in HPI and below Patient History Medical History Obstructive sleep apnea hypopnea, severe Drug-induced cardiomyopathy (2015) Social History marital status: household members: spouse education level: college occupational status: disabled Smoking Status: Former smoker alcohol intake: former substance use type: does not use Smoking Status: Former smoker alcohol intake frequency: 0-2 drinks per day Substance Use Type: marijuana Exam Initial Vital Signs Initial Vital Signs: Vital Signs Temperature 98.5 F 04/02/24 15:10 Pulse Rate 78 04/02/24 15:10 Respiratory Rate 18 04/02/24 15:10 Blood Pressure 139/89 04/02/24 15:10 Pulse Oximetry 100 04/02/24 15:10 Oxygen Delivery Method Room Air 04/02/24 15:10 Const General: cooperative and No ill appearing HENNC Head: normal to inspection and normocephalic Resp Effort & Inspection: normal respiratory effort Auscultation: clear to auscultation bilaterally Cardio Rate: regular rate Rhythm: regular rhythm GI Inspection: normal to inspection and non-distended Palpation: soft, No firm, No guarding and tender (The epigastric region negative Medley's sign) Neuro General: patient alert and patient awake Extrem General: normal to inspection Course Orders Ordered: Discontinued Medications Hydrocodone Bitart/Acetaminophen (Hydrocodone/Acet 5/325 Prepack) 1 bottle MISC DIRECTED ONE Stop: 04/02/24 23:05 Last Admin: 04/02/24 23:22 Dose: 1 bottle Documented By: JACKSON Morphine Sulfate (Morphine 4 Mg/Ml Inj) 4 mg IV NOW ONE Stop: 04/02/24 21:01 Last Admin: 04/02/24 21:14 Dose: 4 mg Documented By: JACKSON Ondansetron HCl (Ondansetron 4 Mg Odt Prepack) 1 bottle MISC DIRECTED ONE Stop: 04/02/24 23:05 Last Admin: 04/02/24 23:21 Dose: 1 bottle Documented By: JACKSON Vital Signs Vital signs: Vital Signs - 8 hr 04/02/24 22:30 04/02/24 22:30 04/02/24 23:00 Pulse Rate 78 89 Respiratory Rate Blood Pressure 128/77 Pulse Oximetry 94 99 Oxygen Delivery Method 04/02/24 23:17 04/02/24 23:17 04/02/24 23:21 Pulse Rate 78 78 Respiratory Rate 14 Blood Pressure 117/78 117/78 Pulse Oximetry 94 97 Oxygen Delivery Method Room Air MDM - Chest Pain Lab Data Attestation: I reviewed the patient's lab results. 04/02/24 15:28 04/02/24 15:28 Labs: Lab Results 04/02/24 04/02/24 04/02/24 Range/Units 15:15 15:28 18:20 WBC 14.1 H (4.5-11.0) X10^3/uL RBC 5.69 (4.5-5.9) X10^6/uL Hgb 17.2 (13.5-17.5) g/dL Hct 49.4 (41-53) % MCV 86.8 (80-100) fL MCH 30.2 (26-34) PG MCHC 34.8 (30-36) % RDW 14.4 (11.6-14.8) % Plt Count 281 (150-400) X10^3/uL Neut % (Auto) 82.3 H (50-75) % Lymph % (Auto) 8.9 L (25-40) % Boyd % (Auto) 8.5 (3-14) % Eos % (Auto) 0.1 L (2-4) % Baso % (Auto) 0.2 (0-2) % Neut # (Auto) 73530 H (0430-0435) /uL Lymph # (Auto) 1300 (8329-0161) /uL Boyd # (Auto) 1200 H (0-900) /uL Eos # (Auto) 0 (0-450) /uL Baso # (Auto) 0 (0-100) /uL PT 11.1 (9.4-12.5) SECONDS INR 1.0 (0.9-1.3) APTT 33 (25.1-36.5) SECONDS Sodium 135 L (137-145) mmol/L Potassium 4.8 (3.4-5.1) mmol/L Chloride 96 L (98-107) mmol/L Carbon Dioxide 24 (22-32) mmol/L BUN 30 H (9-20) mg/dL Creatinine 1.27 H (0.66-1.25) mg/dL Estimated GFR > 60 (>60) mL/min BUN/Creatinine Ratio 23.6 H (6-22) Glucose 153 H (70-100) mg/dL Calcium 9.5 (8.4-10.2) mg/dL Magnesium 1.8 (1.6-2.3) mg/dL Total Bilirubin 1.6 H (0.2-1.3) mg/dL AST 112 H (17-59) IU/L ALT 49 (<50) IU/L Alkaline Phosphatase 212 H (38-126) U/L Total Creatine Kinase 67 63 (55-170) U/L Troponin I < 0.012 < 0.012 (0.01-0.034) ng/mL NT-Pro-B Natriuret Pep 4990 H (<125) pg/mL Total Protein 8.2 (6.3-8.2) g/dL Albumin 4.7 (3.5-5.0) g/dL Globulin 3.5 (1.7-4.1) g/dL Albumin/Globulin Ratio 1.3 (1.0-2.8) Lipase 98 (23-300) U/L Urine Dip Bedside Urine Glucose 500 mg/dl Bedside Urine Bilirubin - Negative Bedside Urine Ketone +++ 80 Urine Specific [place] 1.020 Bedside Urine Occult Blood ++ Bedside Urine pH 5.5 Bedside Urine Protein ++ 100 Bedside Urine Urobilinogen - Negative Bedside Urine Nitrite - Negative Bedside Urine Leukocytes - Negative Esterase Imaging Data US - abdomen: Radiologist's Impression: PROCEDURE: US ABDOMEN LIMITED INDICATIONS: RUQ ABD pain eval for GB pathology TECHNIQUE: Real-time scanning was performed of the abdominal and retroperitoneal organs, with image documentation. COMPARISON: None. FINDINGS: Liver: Liver is mildly enlarged measuring 17.8 cm. Mild increased hepatic echogenicity. Main portal vein is patent with normal hepatopetal flow. Gallbladder: Cholelithiasis. Gallbladder wall thickening measuring up to 6 mm. No pericholecystic fluid. Sonographic Medley sign is negative, however patient received pain medication. Biliary ducts: Intrahepatic bile ducts are non-dilated. Extrahepatic bile duct caliber measures 7 mm. Normal is 6-7 mm or less in diameter, or 10 mm or less post-cholecystectomy. Pancreas: Not well seen. Miscellaneous: No free abdominal fluid. IMPRESSION: Cholelithiasis with evidence of acute cholecystitis. CT scan - abdomen/pelvis: Radiologist's Impression: PROCEDURE: CT ABDOMEN PELVIS W CON INDICATIONS: Epigastric abdominal pain TECHNIQUE: After the administration of intravenous contrast, axial sections acquired from the lung bases to the pubic symphysis. Coronal and sagittal reformats were performed. For radiation dose reduction, the following was used: automated exposure control, adjustment of mA and/or kV according to patient size. COMPARISON: None. FINDINGS: Image quality: Diagnostic. Lower Chest: No significant findings. ABDOMEN: Liver: No solid mass. Gallbladder: No calcified stones however, the gallbladder is distended with thickened wall measuring up to approximately 6 mm with surrounding inflammatory changes. Inflammation of the gallbladder fossa extends to adjacent duodenum and colon at the hepatic flexure. No evidence of perforation. Biliary ducts: No biliary dilation. Pancreas: No ductal dilation. Spleen: Size is within normal limits. Adrenal Glands: No adrenal nodules. Kidneys and Ureters: No hydronephrosis. No solid mass. No complex renal cystic lesion which requires follow up. Stomach and Bowel: Normal colonic caliber, without significant wall thickening. Peritoneum: No abnormal intraperitoneal fluid. No free air. Ventral Wall: No significant ventral hernia. Abdominal Nodes: No retroperitoneal or mesenteric adenopathy by size criteria. Vessels: Aorta and inferior vena cava are normal in size. PELVIS: Pelvic Organs: Unremarkable. Bladder: No bladder wall thickening, accounting for underdistention. Pelvic Nodes: No enlarged lymph nodes. Miscellaneous: No inguinal hernias are seen. Bones: No aggressive osseous abnormality. IMPRESSION: Distended gallbladder with wall thickening and surrounding inflammation in the gallbladder fossa extending to the adjacent duodenum and colon at the hepatic flexure. No CBD dilation. Findings are favored to represent with acute cholecystitis. Chest x-ray: Radiologist's Impression: PROCEDURE: XR CHEST 1V INDICATIONS: chest pain TECHNIQUE: One view of the chest was acquired. COMPARISON: [facility], CR, XR CHEST 1V, 03/22/2023, 9:04. FINDINGS: Surgical changes and devices: Left cardiac pacemaker. Lungs and pleura: Patchy bibasilar opacities more pronounced on the right. No pneumothorax or substantial pleural effusion. Mediastinum: Mediastinal contours appear normal. Heart size is mildly enlarged. Bones and chest wall: No suspicious bony lesions. Overlying soft tissues appear unremarkable. IMPRESSION: Borderline cardiomegaly. Mild patchy bibasilar opacities which may represent atelectasis versus early developing airspace disease/pneumonia. Recommend follow up chest radiograph 4-6 weeks after treatment to document resolution of findings and/or return to baseline examination. ECG Data Attestation: I personally reviewed and interpreted this ECG as follows: Interpretation: Sinus rhythm Ventricular rate is 71 Left axis deviation LVH ST T wave changes MDM Narrative Medical decision making narrative: Initial CT scan shows concerning for acute cholecystitis. Ultrasound shows borderline dilated wall without pericholecystic fluid, negative Medley's sign and nondilated ducts. His LFTs are only very slightly elevated. He does have leukocytosis. After pain medication his symptoms are much better. Patient does have a significant cardiac history specifically CHF. I have low suspicion for [place]. He was not clinically in heart failure. Decision was made to discharge home and follow-up as outpatient for medical clearance of his cardiovascular issues and also follow-up with general surgery for potential cholecystectomy. Patient was given strict return precautions and follow-up instructions. Discharge Plan Departure Patient Disposition: Home Clinical Impression: Cholelithiasis, Abdominal pain Instructions: DI for Gallstones, DI for Abdominal Pain-Adult Activity Restrictions/Additional Instructions: Use the pain medicine and nausea medication as directed. I also recommend a bland diet. You do need to stay away from foods that are high in [place]/oils/fats. Contact your physical security engineer and let them know that your was likely going to need a surgery for your gallbladder and you need to be cleared for the surgery. Also contact the general surgery department at the number provided below for a follow-up as well. Return to the emergency department for new or worsening symptoms. Prescriptions: New hydrocodone-acetaminophen 5-325 mg tablet 1 tab PO Q4-6H PRN (Reason: pain) Qty: 20 0RF ondansetron 4 mg tablet,disintegrating 4 mg PO Q6H PRN (Reason: nausea and vomiting) Qty: 14 0RF No Action aspirin 81 MG tablet,delayed release (DR/EC) 81 mg PO QDAY Qty: 30 allopurinol 100 mg tablet 100 mg PO Q DAY Qty: 90 3RF buspirone 30 mg tablet 30 mg PO BID Qty: 180 3RF digoxin 125 mcg (0.125 mg) tablet 125 mcg PO DAILY Qty: 90 1RF losartan [Cozaar] 50 mg tablet 50 mg PO BID Qty: 180 3RF potassium chloride 10 mEq tablet extended release 10 meq PO DAILY Qty: 90 1RF torsemide 20 mg tablet 20 mg PO Q DAY Qty: 90 1RF Rx Instructions: prn Q am metoprolol succinate 100 mg tablet extended release 24 hr See Rx Instructions PO DAILY Qty: 270 1RF Rx Instructions: 2 tabs in the morning, 1 tab in the evening PO daily; glipizide 10 mg tablet 10 mg PO BID Qty: 180 1RF Rx Instructions: 5 mg am 5 mg evening atorvastatin 80 mg tablet 80 mg PO DAILY Patient Comments: dose change from 40mg to 80mg from cardiology 10/19/19 Entresto 49-51 mg tablet 1 tab PO BID divalproex 500 mg tablet,delayed release (DR/EC) 500 mg PO TID Qty: 90 0RF Rx Instructions: At bedtime.//PT OVERDUE FOR APPT. PLEASE CALL TO SCHED. APPT FOR CONT'D FILLS. THANKS 01/23/21 magnesium chloride 64 mg tablet,delayed release (DR/EC) 64 mg PO DAILY Qty: 30 0RF Rx Instructions: PT OVERDUE FOR APPT. PLEASE CALL TO SCHED. APPT FOR CONT'D FILLS. THANKS 01/23/21 amantadine HCl 100 mg capsule 100 mg PO BID Qty: 60 0RF Rx Instructions: PT OVERDUE FOR APPT. PLEASE CALL TO SCHED. APPT FOR CONT'D FILLS. THANKS 01/23/21 metformin 1,000 mg tablet 1,000 mg PO BIDCC Qty: 60 0RF Rx Instructions: PT OVERDUE FOR APPT. PLEASE CALL TO SCHED. APPT FOR CONT'D FILLS. THANKS 01/23/21 Combivent Respimat 20-100 mcg/actuation Mist 2 puff INH RTBID Qty: 1 0RF Referrals: Tom Owens MD [Physician] - Eryn Espinosa MD [Primary Care Provider] - Stand Alone Forms: Patient Portal/API
--- NOTE | 2024-04-02 20:33 | DI.US.S_ITS ---
PROCEDURE: US ABDOMEN LIMITED INDICATIONS: RUQ ABD pain eval for GB pathology TECHNIQUE: Real-time scanning was performed of the abdominal and retroperitoneal organs, with image documentation. COMPARISON: None. FINDINGS: Liver: Liver is mildly enlarged measuring 17.8 cm. Mild increased hepatic echogenicity. Main portal vein is patent with normal hepatopetal flow. Gallbladder: Cholelithiasis. Gallbladder wall thickening measuring up to 6 mm. No pericholecystic fluid. Sonographic Medley sign is negative, however patient received pain medication. Biliary ducts: Intrahepatic bile ducts are non-dilated. Extrahepatic bile duct caliber measures 7 mm. Normal is 6-7 mm or less in diameter, or 10 mm or less post-cholecystectomy. Pancreas: Not well seen. Miscellaneous: No free abdominal fluid. IMPRESSION: Cholelithiasis with evidence of acute cholecystitis. Approved by: Mady Montoya M.D.,Ph.D. on 04/02/2024 at 22:43
[2024-04-02] MEDS: MORPHINE 4 MG/ML INJ IV (21:14)
[2024-04-02] MEDS: ONDANSETRON 4 MG ODT PREPACK 1 BOTTLE MISC (23:21)
[2024-04-02] MEDS: HYDROCODONE/ACET 5/325 PREPACK 1 BOTTLE MISC (23:22)
== END 2024-04-02 23:25 | disposition home or self-care (01) ==
PROVIDERS: Emergency Medicine; Emergency Provider Emergency Medicine; PCP Internal Medicine
DX: K80.20 Calculus of gallbladder without cholecystitis without obstruction (principal); R10.13 Epigastric pain; R06.02 Shortness of breath; I50.9 Heart failure, unspecified
CPT/HCPCS: 36415; 71045; 74177; 76705; 80053; 81003; 82550; 83690; 83735; 83880; 84484; 85025; 85610; 85730; 93005; 96374; 99284; J2270; Q9967

== ENCOUNTER 2024-04-03 09:14 | Emergency (ER) | payer OTHER, SELFPAY ==
[2020-01-07 01:55] VITALS: BMI 38.2
[2024-04-03] VITALS (54 sets, daily range): BP systolic 73–153; BP diastolic 50–85; PULSE 68–100; RESP 11–30; TEMP 37.1; O2SAT 87–100; BMI 34.0
--- NOTE | 2024-04-03 09:22 | ED_ITS ---
HPI - Abdominal Pain General Chief Complaint: Abdominal Pain Stated Complaint: Gallstones Time Seen by Provider: 04/03/24 09:16 History of Present Illness HPI narrative: 48-year-old male with history of nonischemic cardiomyopathy with AICD presents for abdominal pain and feeling feverish. Seen yesterday in the emergency department. Has cholecystitis diagnosed on ultrasound and CT imaging yesterday. Last night patient states his pain was uncontrolled and he felt very feverish, although temperature was not measured at home. Related Data Home Medications Medication Instructions Recorded Confirmed aspirin 81 mg tablet,delayed 81 mg PO QDAY #30 tabs 08/20/16 01/07/20 release atorvastatin 80 mg tablet 80 mg PO DAILY 10/28/19 01/07/20 sacubitril 49 mg-valsartan 51 mg 1 tab PO BID 02/24/20 tablet (Entresto) Previous Rx's Medication Instructions Recorded allopurinol 100 mg tablet 100 mg PO Q DAY #90 tabs 09/05/19 buspirone 30 mg tablet 30 mg PO BID #180 tabs 09/05/19 digoxin 125 mcg (0.125 mg) tablet 125 mcg PO DAILY #90 tabs 09/05/19 losartan 50 mg tablet (Cozaar) 50 mg PO BID #180 tabs 09/05/19 potassium chloride 10 mEq 10 meq PO DAILY #90 tabs 09/05/19 tablet,extended release torsemide 20 mg tablet 20 mg PO Q DAY #90 tabs 09/05/19 metoprolol succinate 100 mg See Rx Instructions PO DAILY #270 09/07/19 tablet,extended release 24 hr tabs glipizide 10 mg tablet 10 mg PO BID #180 tabs 10/18/19 ipratropium 20 mcg-albuterol 100 2 puff INH RTBID #1 g 01/09/20 mcg/actuation mist for inhalation (Combivent Respimat) amantadine HCl 100 mg capsule 100 mg PO BID #60 caps 01/23/21 divalproex 500 mg tablet,delayed 500 mg PO TID #90 tabs 01/23/21 release magnesium chloride 64 mg 64 mg PO DAILY #30 tabs 01/23/21 (magnesium chloride) tablet,delayed release metformin 1,000 mg tablet 1,000 mg PO BIDCC #60 tabs 01/23/21 hydrocodone 5 mg-acetaminophen 325 1 tab PO Q4-6H PRN pain #20 tabs 04/02/24 mg tablet ondansetron 4 mg disintegrating 4 mg PO Q6H PRN nausea and 04/02/24 tablet vomiting #14 tabs Allergies Allergy/AdvReac Type Severity Reaction Status Date / Time paliperidone [From INVEGA] Allergy Severe LOSS OF Verified 04/03/24 09:22 SPEECH AND MOTOR CONTROL NSAIDS (Non-Steroidal AdvReac Unknown STATES Verified 04/03/24 09:22 Anti-Inflamma INTERACTS [NSAIDS (NON-STEROIDAL WITH HOME ANTI-INFLAMMA] MEDS Patient History Medical History Obstructive sleep apnea hypopnea, severe Drug-induced cardiomyopathy (2016) Social History marital status: household members: spouse education level: college occupational status: disabled Smoking Status: Former smoker alcohol intake: former substance use type: does not use Smoking Status: Former smoker alcohol intake frequency: 0-2 drinks per day Substance Use Type: marijuana Exam Initial Vital Signs Initial Vital Signs: Vital Signs Temperature 98.7 F 04/03/24 09:15 Pulse Rate 85 04/03/24 09:15 Respiratory Rate 16 04/03/24 09:15 Blood Pressure 113/60 04/03/24 09:15 Pulse Oximetry 100 04/03/24 09:15 Oxygen Delivery Method Room Air 04/03/24 09:15 Const: Awake, alert, ill-appearing, nontoxic Cardiac: Regular rate, regular rhythm RESP: unlabored, clear bilaterally, no wheezing GI: Soft, generalized tenderness to palpation right upper quadrant Skin: Warm, Dry, intact, no rashes Neuro: AO x3, CN II-XII grossly intact, moves all extremities Course Orders Ordered: Discontinued Medications Hydromorphone HCl (Hydromorphone 1 Mg Inj) 1 mg IV NOW ONE Stop: 04/03/24 13:59 Last Admin: 04/03/24 14:07 Dose: 1 mg Documented By: SB Sodium Chloride (Normal Saline 0.9%) 1,000 mls @ 1,000 mls/hr IV BOLUS ONE Stop: 04/03/24 10:15 Last Infusion: 04/03/24 10:42 Dose: Infused Documented By: Admin: 04/03/24 09:55 Dose: 1,000 mls/hr Documented By: MPO Piperacillin Sod/Tazobactam (Sod 4.5 gm/ Sodium Chloride) 100 mls @ 200 mls/hr IV NOW ONE Stop: 04/03/24 09:32 Last Infusion: 04/03/24 10:41 Dose: Infused Documented By: Admin: 04/03/24 09:54 Dose: 200 mls/hr Documented By: MPO Sodium Chloride (Normal Saline 0.9%) 500 mls @ 1,000 mls/hr IV BOLUS ONE Stop: 04/03/24 15:31 Last Infusion: 04/03/24 16:51 Dose: Infused Documented By: Admin: 04/03/24 15:03 Dose: 1,000 mls/hr Documented By: MPO Piperacillin Sod/Tazobactam (Sod 4.5 gm/ Sodium Chloride) 100 mls @ 200 mls/hr IV NOW ONE Stop: 04/03/24 17:07 Last Infusion: 04/03/24 18:03 Dose: Infused Documented By: Admin: 04/03/24 17:26 Dose: 200 mls/hr Documented By: SB Morphine Sulfate (Morphine 4 Mg/Ml Inj) 4 mg IV NOW ONE Stop: 04/03/24 09:24 Last Admin: 04/03/24 09:54 Dose: 4 mg Documented By: MPO Morphine Sulfate (Morphine 4 Mg/Ml Inj) 4 mg IV NOW ONE Stop: 04/03/24 19:48 Last Admin: 04/03/24 19:54 Dose: 4 mg Documented By: AUGIE Vital Signs Vital signs: Vital Signs - 8 hr 04/03/24 09:15 04/03/24 09:21 04/03/24 09:21 Temperature 98.7 F Pulse Rate 85 83 Respiratory Rate 16 Blood Pressure 113/60 113/60 Pulse Oximetry 100 99 Oxygen Delivery Method Room Air Oxygen Flow Rate 04/03/24 09:30 04/03/24 09:30 04/03/24 10:00 Temperature Pulse Rate 81 82 Respiratory Rate 11 L 26 H Blood Pressure 110/61 Pulse Oximetry 96 93 Oxygen Delivery Method Oxygen Flow Rate 04/03/24 10:07 04/03/24 10:07 04/03/24 10:11 Temperature Pulse Rate 80 Respiratory Rate 22 Blood Pressure 107/63 116/64 Pulse Oximetry 87 L Oxygen Delivery Method Oxygen Flow Rate 04/03/24 10:11 04/03/24 10:30 04/03/24 10:30 Temperature Pulse Rate 78 73 Respiratory Rate 22 18 Blood Pressure 117/60 Pulse Oximetry 95 100 Oxygen Delivery Method Nasal Cannula Nasal Cannula Oxygen Flow Rate 2 2 04/03/24 11:00 04/03/24 11:00 04/03/24 11:30 Temperature Pulse Rate 68 80 Respiratory Rate 16 11 L Blood Pressure 109/59 L Pulse Oximetry 100 100 Oxygen Delivery Method Oxygen Flow Rate 04/03/24 12:00 04/03/24 12:00 04/03/24 12:30 Temperature Pulse Rate 71 79 Respiratory Rate 18 21 Blood Pressure 113/66 Pulse Oximetry 99 92 Oxygen Delivery Method Oxygen Flow Rate 04/03/24 12:30 04/03/24 13:00 04/03/24 13:00 Temperature Pulse Rate 80 Respiratory Rate 20 Blood Pressure 111/67 102/70 Pulse Oximetry 99 Oxygen Delivery Method Oxygen Flow Rate 04/03/24 13:30 04/03/24 13:30 04/03/24 14:00 Temperature Pulse Rate 86 85 Respiratory Rate 20 18 Blood Pressure 109/61 Pulse Oximetry 100 99 Oxygen Delivery Method Oxygen Flow Rate 04/03/24 14:00 04/03/24 14:30 04/03/24 14:31 Temperature Pulse Rate 84 83 Respiratory Rate 17 16 Blood Pressure 108/59 L 86/51 L Pulse Oximetry 98 98 Oxygen Delivery Method Nasal Cannula Oxygen Flow Rate 3 04/03/24 14:35 04/03/24 14:40 04/03/24 14:45 Temperature Pulse Rate 84 81 80 Respiratory Rate 17 16 16 Blood Pressure 89/50 L Pulse Oximetry 97 98 97 Oxygen Delivery Method Nasal Cannula Oxygen Flow Rate 3 04/03/24 14:45 04/03/24 14:48 04/03/24 14:48 Temperature Pulse Rate 84 Respiratory Rate 17 Blood Pressure 86/50 L 87/52 L Pulse Oximetry 98 Oxygen Delivery Method Oxygen Flow Rate 04/03/24 14:50 04/03/24 14:55 04/03/24 15:00 Temperature Pulse Rate 87 80 Respiratory Rate 16 20 Blood Pressure 87/50 L Pulse Oximetry 97 94 Oxygen Delivery Method Oxygen Flow Rate 04/03/24 15:00 04/03/24 15:03 04/03/24 15:10 Temperature Pulse Rate 78 78 76 Respiratory Rate 19 20 18 Blood Pressure 97/53 L 91/54 L Pulse Oximetry 95 95 98 Oxygen Delivery Method Oxygen Flow Rate 04/03/24 15:15 04/03/24 15:20 04/03/24 15:30 Temperature Pulse Rate 75 77 77 Respiratory Rate 15 15 16 Blood Pressure 105/58 L 98/52 L 89/51 L Pulse Oximetry 98 98 98 Oxygen Delivery Method Nasal Cannula Oxygen Flow Rate 3 04/03/24 15:35 04/03/24 15:40 04/03/24 15:45 Temperature Pulse Rate 76 77 77 Respiratory Rate 15 16 16 Blood Pressure 95/53 L 97/55 L 101/55 L Pulse Oximetry 97 97 97 Oxygen Delivery Method Oxygen Flow Rate 04/03/24 15:50 04/03/24 15:55 04/03/24 16:00 Temperature Pulse Rate 79 77 78 Respiratory Rate 14 17 16 Blood Pressure 103/58 L 99/52 L 103/56 L Pulse Oximetry 98 98 99 Oxygen Delivery Method Oxygen Flow Rate 04/03/24 16:05 Temperature Pulse Rate 78 Respiratory Rate 16 Blood Pressure 89/51 L Pulse Oximetry 98 Oxygen Delivery Method Oxygen Flow Rate MDM - Abdominal Pain Differential Diagnosis Differential diagnosis: Likely abdominal pain, pancreatitis and small bowel obstruction Lab Data 04/03/24 09:57 04/03/24 09:57 Labs: Lab Results 04/03/24 Range/Units 09:57 WBC 15.8 H (4.5-11.0) X10^3/uL RBC 5.36 (4.5-5.9) X10^6/uL Hgb 16.5 (13.5-17.5) g/dL Hct 47.1 (41-53) % MCV 87.8 (80-100) fL MCH 30.7 (26-34) PG MCHC 35.0 (30-36) % RDW 14.3 (11.6-14.8) % Plt Count 267 (150-400) X10^3/uL Neut % (Auto) 80.7 H (50-75) % Lymph % (Auto) 6.6 L (25-40) % [place] % (Auto) 12.6 (3-14) % Eos % (Auto) 0.0 L (2-4) % Baso % (Auto) 0.1 (0-2) % Neut # (Auto) 76473 H (0727-8806) /uL Lymph # (Auto) 1000 L (6025-2652) /uL [place] # (Auto) 2000 H (0-900) /uL Eos # (Auto) 0 (0-450) /uL Baso # (Auto) 0 (0-100) /uL Sodium 131 L (137-145) mmol/L Potassium 5.3 H (3.4-5.1) mmol/L Chloride 94 L (98-107) mmol/L Carbon Dioxide 20 L (22-32) mmol/L BUN 38 H (9-20) mg/dL Creatinine 1.57 H (0.66-1.25) mg/dL Estimated GFR 54 L (>60) mL/min BUN/Creatinine Ratio 24.2 H (6-22) Glucose 172 H (70-100) mg/dL Calcium 9.2 (8.4-10.2) mg/dL Total Bilirubin 1.1 (0.2-1.3) mg/dL AST 120 H (17-59) IU/L ALT 147 H (<50) IU/L Alkaline Phosphatase 238 H (38-126) U/L Total Protein 7.8 (6.3-8.2) g/dL Albumin 4.5 (3.5-5.0) g/dL Globulin 3.3 (1.7-4.1) g/dL Albumin/Globulin Ratio 1.4 (1.0-2.8) MDM Narrative Medical decision making narrative: Patient with cholecystitis presenting with worsening abdominal pain. Abdomen is soft, but he was very tender in the right upper quadrant. Repeat laboratory work ordered. Laboratory work is significant for WBC count 15.8, hemoglobin 16.5, platelets 267, sodium 131, potassium 5.3, creatinine 1.57, T bili 1.1, AST 120, ALT 147, alk phos 238. Case discussed with hospitalist and General surgery, patient would benefit from MRCP, however due to AICD placement we are unable to obtain MRI for this patient at our facility. Recommend transfer to facility with both cardiology and GI. Patient given Zosyn for coverage. Patient's case is pending review of [facility], however there has been a delay due to difficulties in accessing imaging. Patient's pain is controlled, hemodynamically stable 1700 -patient accepted by Dr. Thomason at [facility] for transport. Discharge Plan Departure Patient Disposition: [facility] Clinical Impression: Acute cholecystitis Prescriptions: No Action aspirin 81 MG tablet,delayed release (DR/EC) 81 mg PO QDAY Qty: 30 allopurinol 100 mg tablet 100 mg PO Q DAY Qty: 90 3RF buspirone 30 mg tablet 30 mg PO BID Qty: 180 3RF digoxin 125 mcg (0.125 mg) tablet 125 mcg PO DAILY Qty: 90 1RF losartan [Cozaar] 50 mg tablet 50 mg PO BID Qty: 180 3RF potassium chloride 10 mEq tablet extended release 10 meq PO DAILY Qty: 90 1RF torsemide 20 mg tablet 20 mg PO Q DAY Qty: 90 1RF Rx Instructions: prn Q am metoprolol succinate 100 mg tablet extended release 24 hr See Rx Instructions PO DAILY Qty: 270 1RF Rx Instructions: 2 tabs in the morning, 1 tab in the evening PO daily; glipizide 10 mg tablet 10 mg PO BID Qty: 180 1RF Rx Instructions: 5 mg am 5 mg evening atorvastatin 80 mg tablet 80 mg PO DAILY Patient Comments: dose change from 40mg to 80mg from cardiology 10/19/19 Entresto 49-51 mg tablet 1 tab PO BID divalproex 500 mg tablet,delayed release (DR/EC) 500 mg PO TID Qty: 90 0RF Rx Instructions: At bedtime.//PT OVERDUE FOR APPT. PLEASE CALL TO SCHED. APPT FOR CONT'D FILLS. THANKS 01/23/21 magnesium chloride 64 mg tablet,delayed release (DR/EC) 64 mg PO DAILY Qty: 30 0RF Rx Instructions: PT OVERDUE FOR APPT. PLEASE CALL TO SCHED. APPT FOR CONT'D FILLS. THANKS 01/23/21 amantadine HCl 100 mg capsule 100 mg PO BID Qty: 60 0RF Rx Instructions: PT OVERDUE FOR APPT. PLEASE CALL TO SCHED. APPT FOR CONT'D FILLS. THANKS 01/23/21 metformin 1,000 mg tablet 1,000 mg PO BIDCC Qty: 60 0RF Rx Instructions: PT OVERDUE FOR APPT. PLEASE CALL TO SCHED. APPT FOR CONT'D FILLS. THANKS 01/23/21 Combivent Respimat 20-100 mcg/actuation Mist 2 puff INH RTBID Qty: 1 0RF hydrocodone-acetaminophen 5-325 mg tablet 1 tab PO Q4-6H PRN (Reason: pain) Qty: 20 0RF ondansetron 4 mg tablet,disintegrating 4 mg PO Q6H PRN (Reason: nausea and vomiting) Qty: 14 0RF Referrals: Eryn Espinosa MD [Physician] -
[2024-04-03] MEDS: MORPHINE 4 MG/ML INJ IV ×2 (09:54→19:54)
[2024-04-03] MEDS: PIPERACILLIN/TAZO 4.5 GM in SODIUM CHLORIDE 0.9% 100 ML IV ×2 (09:54→17:26)
[2024-04-03] MEDS: SODIUM CHLORIDE 0.9% 1,000 ML 1000 ML IV (09:55)
[2024-04-03 10:05] LABS: Add Manual Diff / Slide Review NO; Basophils Absolute Auto 0 /uL (0-100); Basophils Percent Auto 0.1 % (0-2); Eosinophils Absolute Auto 0 /uL (0-450); Hematocrit 47.1 % (41-53); Hemoglobin 16.5 g/dL (13.5-17.5); Lymphocytes Absolute Auto 1000 /uL (1100-4500); Lymphocytes Percent Auto 6.6 % (25-40); Mean Corpuscular Hemoglobin 30.7 PG (26-34); Mean Corpuscular Volume 87.8 fL (80-100); Monocytes Absolute Auto 2000 /uL (0-900); Monocytes Percent Auto 12.6 % (3-14); Neutrophils Absolute Auto 12700 /uL (1500-7000); Neutrophils Percent Auto 80.7 % (50-75); Platelet Count 267 X10^3/uL (150-400); Red Blood Cell Count 5.36 X10^6/uL (4.5-5.9); Red Cell Distribution Width 14.3 % (11.6-14.8); White Blood Cell Count 15.8 X10^3/uL (4.5-11.0)
[2024-04-03 10:20] LABS: Alanine Aminotransferase 147 IU/L (<50); Albumin 4.5 g/dL (3.5-5.0); Albumin Globulin Ratio 1.4 (1.0-2.8); Alkaline Phosphatase 238 U/L (38-126); Aspartate Aminotransferase 120 IU/L (17-59); BUN Creatinine Ratio 24.2 (6-22); Bilirubin Total 1.1 mg/dL (0.2-1.3); Blood Urea Nitrogen 38 mg/dL (9-20); Calcium 9.2 mg/dL (8.4-10.2); Carbon Dioxide 20 mmol/L (22-32); Chloride 94 mmol/L (98-107); Estimated Glomerular Filt Rate 54 mL/min (>60); Globulin 3.3 g/dL (1.7-4.1); Glucose 172 mg/dL (70-100); HEMOLYSIS 16 (0-50); Potassium 5.3 mmol/L (3.4-5.1); Sodium 131 mmol/L (137-145); Total Protein 7.8 g/dL (6.3-8.2)
--- NOTE | 2024-04-03 11:02 | P.CALLCOV_ITS ---
Call Coverage Note Note Date of Patient Contact: 04/03/24 Narrative of Care Provided: 48 M with PMH of non-ischemic cardiomyopathy (CHFrEF) with ICD in place. LFTs are trending up, Tbili was up yesterday though slightly improved. Concern if for possible cholangitis at this time. Ideally would be able to do MRI but at [facility] we do not have approrpiate staff to perform MRI with PPM in place. Recommend transfer for higher level of care, MRCP, availability of cardiology in the setting of sepsis from either cholecystitis or cholangitis. Recommend continuing zosyn for noted infectious process 3.375 g q8hr.
--- NOTE | 2024-04-03 11:56 | EKG_ITS ---
[id number] [address] Test Date: 2024-04-03 Pat Name: Himanshu Nguyễn Jr Department: Room: Gender: Male Dietary Assistant: POLY : 1975 Requested By: Order Number: [id number] Reading MD: Delgado Otoole MD Measurements Intervals [place] Rate: 72 P: 17 [place]: 156 QRS: -48 QRSD: 130 T: 61 QT: 408 QTc: 446 Interpretive Statements Normal sinus rhythm Left axis deviation Left ventricular hypertrophy with QRS widening ( R in aVL , [place] product ) Cannot rule out Inferior infarct (masked by fascicular block?) , age undetermined NO SIGNIFICANT CHANGE FROM PRIOR TRACING Electronically Signed On 04-05-2024 12:02:08 PDT by Delgado Ootole MD
[2024-04-03] MEDS: HYDROMORPHONE 1 MG INJ IV (14:07)
[2024-04-03] MEDS: SODIUM CHLORIDE 0.9% 500 ML 1000 ML IV (15:03)
== END 2024-04-03 20:07 | disposition short-term general hospital (02) ==
PROVIDERS: Emergency Medicine; Emergency Provider Emergency Medicine; PCP Internal Medicine
DX: K81.0 Acute cholecystitis (principal)
CPT/HCPCS: 51798; 80053; 85025; 93005; 93010; 96361; 96365; 96366; 96375; 96376; 99284; J1170; J2270; J2543

== ENCOUNTER → 2024-04-11 07:58 | Outpatient (CLI) | payer OTHER, SELFPAY ==
[2020-01-07 01:55] VITALS: BMI 38.2
[2024-04-11 09:00] LABS: BUN Creatinine Ratio 13.7 (6-22); Blood Urea Nitrogen 17 mg/dL (9-20); Calcium 8.4 mg/dL (8.4-10.2); Carbon Dioxide 30 mmol/L (22-32); Chloride 101 mmol/L (98-107); Estimated Glomerular Filt Rate > 60 mL/min (>60); Glucose 172 mg/dL (70-100); HEMOLYSIS < 15 (0-50); Potassium 4.4 mmol/L (3.4-5.1); Sodium 137 mmol/L (137-145)
== END ==
PROVIDERS: PCP Internal Medicine; Referring Provider Internal Medicine; Visit Provider Internal Medicine
DX: I42.8 Other cardiomyopathies (principal)
CPT/HCPCS: 36415; 80048

== ENCOUNTER → 2024-05-26 13:25 | Outpatient (ROUT) | payer OTHER, SELFPAY ==
[2020-01-07 01:55] VITALS: BMI 38.2
[2024-05-26 13:32] LABS: Add Manual Diff / Slide Review NO; Basophils Absolute Auto 0 /uL (0-100); Basophils Percent Auto 0.5 % (0-2); Eosinophils Absolute Auto 200 /uL (0-450); Eosinophils Percent Auto 2.5 % (2-4); Hematocrit 31.4 % (41-53); Hemoglobin 10.7 g/dL (13.5-17.5); Lymphocytes Absolute Auto 1600 /uL (1100-4500); Lymphocytes Percent Auto 16.8 % (25-40); Mean Corpuscular HGB Conc 34.1 % (30-36); Mean Corpuscular Hemoglobin 30.9 PG (26-34); Mean Corpuscular Volume 90.5 fL (80-100); Monocytes Absolute Auto 700 /uL (0-900); Monocytes Percent Auto 7.7 % (3-14); Neutrophils Absolute Auto 7100 /uL (1500-7000); Neutrophils Percent Auto 72.5 % (50-75); Platelet Count 421 X10^3/uL (150-400); Red Blood Cell Count 3.48 X10^6/uL (4.5-5.9); Red Cell Distribution Width 15.8 % (11.6-14.8); White Blood Cell Count 9.7 X10^3/uL (4.5-11.0)
[2024-05-26 13:51] LABS: Alanine Aminotransferase 13 IU/L (<50); Albumin 3.3 g/dL (3.5-5.0); Albumin Globulin Ratio 1.2 (1.0-2.8); Alkaline Phosphatase 155 U/L (38-126); Aspartate Aminotransferase 19 IU/L (17-59); BUN Creatinine Ratio 10.9 (6-22); Bilirubin Total 0.3 mg/dL (0.2-1.3); Blood Urea Nitrogen 14 mg/dL (9-20); C-Reactive Protein Quant 3.8 mg/dL (<1.0); Calcium 8.8 mg/dL (8.4-10.2); Carbon Dioxide 28 mmol/L (22-32); Chloride 100 mmol/L (98-107); Estimated Glomerular Filt Rate > 60 mL/min (>60); Globulin 2.8 g/dL (1.7-4.1); Glucose 150 mg/dL (70-100); HEMOLYSIS < 15 (0-50); Potassium 4.7 mmol/L (3.4-5.1); Sodium 135 mmol/L (137-145); Total Protein 6.1 g/dL (6.3-8.2)
== END ==
PROVIDERS: PCP Internal Medicine; Visit Provider Internal Medicine Infectious Disease
DX: K81.2 Acute cholecystitis with chronic cholecystitis (principal)
CPT/HCPCS: 80053; 85025; 86140

== ENCOUNTER → 2025-02-22 07:30 | Outpatient (CLI) | payer MEDICARE, SELFPAY ==
[2020-01-07 01:55] VITALS: BMI 38.2
[2025-02-22 08:46] LABS: Hematocrit 40.6 % (41-53); Hemoglobin 13.7 g/dL (13.5-17.5)
[2025-02-22 09:19] LABS: BUN Creatinine Ratio 26.5 (6-22); Blood Urea Nitrogen 30 mg/dL (9-20); Calcium 9.4 mg/dL (8.4-10.2); Carbon Dioxide 26 mmol/L (22-32); Chloride 100 mmol/L (98-107); Estimated Glomerular Filt Rate > 60 mL/min (>60); Glucose 190 mg/dL (70-99); HEMOLYSIS < 15 (0-50); Potassium 4.2 mmol/L (3.4-5.1); Sodium 138 mmol/L (137-145)
[2025-02-22 09:25] LABS: Creatinine Urine Random 55.46 mg/dL; Protein (Total) Urine Random 93 mg/dL (0-12); Protein Creatinine Ratio Urine 1.67 GRAM/24H
== END ==
PROVIDERS: PCP Internal Medicine; Referring Provider Student in an Organized Health Care Education/Training Program; Visit Provider Student in an Organized Health Care Education/Training Program
DX: N05.9 Unspecified nephritic syndrome with unspecified morphologic changes (principal); D70.9 Neutropenia, unspecified; D63.1 Anemia in chronic kidney disease; R80.9 Proteinuria, unspecified; I42.8 Other cardiomyopathies; R21 Rash and other nonspecific skin eruption
CPT/HCPCS: 36415; 80048; 82570; 84156; 85014; 85018; 87070; 87075; 87205

== ENCOUNTER → 2025-05-13 14:12 | Outpatient (CLI) | payer MEDICARE, SELFPAY ==
[2020-01-07 01:55] VITALS: BMI 38.2
[2025-05-13 15:02] LABS: Blood Urea Nitrogen 47 mg/dL (9-20); Calcium 8.7 mg/dL (8.4-10.2); Carbon Dioxide 29 mmol/L (22-32); Chloride 96 mmol/L (98-107); Estimated Glomerular Filt Rate 54 mL/min (>60); Glucose 215 mg/dL (70-99); HEMOLYSIS < 15 (0-50); Potassium 4.0 mmol/L (3.4-5.1); Sodium 135 mmol/L (137-145)
== END ==
PROVIDERS: PCP Internal Medicine
DX: I50.9 Heart failure, unspecified (principal)
CPT/HCPCS: 36415; 80048